=== PATIENT | male | born 1955 | race Caucasian/White ===

== ENCOUNTER → 2020-07-16 13:57 | Outpatient (BNVA) | payer OTHER, SELFPAY | PROVIDERS: PCP Nurse Practitioner Family; Visit Provider Orthopaedic Surgery | DX: Z76.89 Persons encountering health services in other specified circumstances (principal) ==

== ENCOUNTER 2020-07-20 14:57 | Outpatient (REF) | payer OTHER, SELFPAY ==
[2020-07-20 16:37] LABS: MANUAL DIFF FLAG NO
[2020-07-20 16:39] LABS: Basophils Percent Auto 0.6 % (0-2); Eosinophils Absolute Auto 0.1 X10*3/uL (0.0-0.4); Eosinophils Percent Auto 1.5 % (0-4); Hematocrit 43.1 % (42-52); Hemoglobin 14.8 g/dl (14.0-18.0); Imm Gran Abs Auto 0.01 X10*3/uL (0.00-0.03); Imm Gran Pct Auto 0.2 % (0.0-0.4); Lymphocytes Absolute Auto 1.3 X10*3/uL (1.2-4.9); Lymphocytes Percent Auto 20.4 % (20-40); Mean Corpuscular HGB Conc 34.3 g/dl (31.0-36.0); Mean Corpuscular Hemoglobin 29.2 pg (27.0-33.0); Mean Corpuscular Volume 85.2 fL (80-98); Mean Platelet Volume 11.1 fL (9.4-12.4); Monocytes Absolute Auto 0.5 X10*3/uL (0.1-1.2); Monocytes Percent Auto 7.8 % (2-11); Neutrophils Absolute Auto 4.6 X10*3/uL (2.0-8.3); Neutrophils Percent Auto 69.5 % (45-73); Platelet Count 256 X10*3/uL (160-400); Red Blood Count 5.06 X10*6/uL (4.60-5.80); White Blood Count 6.6 X10*3/uL (4.8-10.8)
[2020-07-20 16:46] LABS: Urine Cytology See Pathology rpt
[2020-07-20 17:04] LABS: Anion Gap 13 (12-20); Blood Urea Nitrogen 21 mg/dL (9-16); Calcium 8.8 mg/dL (8.4-10.2); Carbon Dioxide 24 mmol/L (22-29); Chloride 105 mmol/L (96-108); Estimated Glomerular Filt Rate > 60; Glucose Random 84 mg/dL (60-115); Potassium 4.6 mmol/l (3.3-5.1); Sodium 137 mmol/L (135-145)
== END 2020-07-20 14:58 | disposition home or self-care (01) ==
LOC: HO.HMGCLDS 14:57
PROVIDERS: Absent Provider Urology; PCP Nurse Practitioner Family; Visit Provider Physician Assistant
DX: R31.0 Gross hematuria (principal)
CPT/HCPCS: 36415; 80048; 85025; 88112

== ENCOUNTER → 2020-07-24 14:05 | Outpatient (BNVA) | payer OTHER, SELFPAY | PROVIDERS: PCP Nurse Practitioner Family; Visit Provider Urology | DX: N40.1 Benign prostatic hyperplasia with lower urinary tract symptoms (principal); N13.8 Other obstructive and reflux uropathy; R31.0 Gross hematuria; I10 Essential (primary) hypertension; Z79.899 Other long term (current) drug therapy | CPT/HCPCS: 52000 ==

== ENCOUNTER 2020-08-11 | Outpatient (REF) | payer OTHER, SELFPAY ==
[2020-07-28 12:08] VITALS: BMI 26.6
[2020-07-28 12:12] VITALS: BP 148/74; PULSE 88; RESP 20
--- NOTE | 2020-07-28 12:23 | HO.ANESPROP2 ---
HPI - Anesthesia Eval Consult details Narrative: 64YO M for L TKA PCP cleared [facility] Past Medical History Medical History (Updated 07/28/20 @ 12:25 by Liliana Hopson) Bilateral primary osteoarthritis of knee BPH with obstruction/lower urinary tract symptoms Carpal tunnel syndrome Erectile dysfunction GERD (gastroesophageal reflux disease) History of elevated prostate specific antigen (PSA) HTN (hypertension) Lumbar spondylosis Nocturia TANIKA on CPAP Other chronic pain Other intervertebral disc degeneration, lumbar region PMR (polymyalgia rheumatica) Pre-op evaluation S/P ORIF (open reduction internal fixation) fracture Family History Family History Father No problems noted. Mother No problems noted. Brother No problems noted. Brother No problems noted. Brother No problems noted. Son No problems noted. 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 with walking [place]10 miles daily) Meds Allergies Allergy/AdvReac Type Severity Reaction Status Date / Time lisinopril Allergy Unknown cough Verified 07/20/20 14:45 penicillin G [PENICILLIN G] Allergy Unknown swelling Verified 07/20/20 14:45 penicillin V Allergy Unknown hand Verified 07/20/20 14:45 swelling, swelling Home Medications Medication Instructions Recorded Confirmed Type cholecalciferol (vitamin D3) 100 mcg PO DAILY 07/06/20 07/28/20 History losartan 100 mg tablet 100 mg PO DAILY 07/06/20 07/28/20 History naproxen 500 mg tablet 500 mg PO BID 07/06/20 07/28/20 History omeprazole 20 mg capsule,delayed 20 mg PO DAILY 07/06/20 07/28/20 History release tamsulosin 0.4 mg capsule 0.4 mg PO BEDTIME 07/06/20 07/28/20 History Exam Exam Date and Time: July 28, 2020 1223 Height,Weight and Vital Signs: Height 5 ft 8 in Weight 79.379 kg Last Vital Signs Pulse 88 07/28/20 12:12 Resp 20 07/28/20 12:12 BP 148/74 H 07/28/20 12:12 Pertinent Lab Results Pertinent Lab Results: Laboratory Tests 06/06/20 07/20/20 07/20/20 10:02 15:10 15:10 WBC 6.6 RBC 5.06 Hgb 14.8 Hct 43.1 Plt Count 256 Sodium 137 Potassium 4.6 Chloride 105 Carbon Dioxide 24 BUN 21 H Creatinine 1.06 Estimated GFR > 60 Coronavirus (PCR) Not Detected Narrative Narrative: EKG NSR@64 Airway Mallampati Class: I TM Dist: >3cm (NSR) Neck ROM: Full Loose/Missing/Broken Teeth: Yes (Right lower molar broken (crown broke off)) Heart: RRR Lungs: CTAB
[2020-07-28 15:05] LABS: MRSA Nasal PCR NEGATIVE (Negative); SA Nasal PCR NEGATIVE (Negative)
== END 2020-08-11 00:01 ==
LOC: HO.LAB
PROVIDERS: PCP Nurse Practitioner Family; Visit Provider Orthopaedic Surgery
DX: M17.12 Unilateral primary osteoarthritis, left knee (principal)
CPT/HCPCS: 87640; 87641

== ENCOUNTER 2020-10-29 09:46 | Outpatient (REF) | payer OTHER, SELFPAY ==
--- NOTE | 2020-10-29 13:41 | XR_ITS ---
EXAMINATION: KNEE X-RAY CLINICAL INFORMATION: Primary arthritis of the knee COMPARISON: Previous exams most recent January 2019 TECHNIQUE: Standing AP view of both knees and 2 views of the left knee FINDINGS: Left knee: There is slight varus angulation at the knee joint. Bone alignment is otherwise normal. No fracture or dislocation is seen. There is severe arthritis at the medial femoral tibial and moderate arthritis at the patellofemoral joints with joint space narrowing and osteophyte formation. There is no significant joint effusion. Standing AP view of the right knee demonstrates an intramedullary flower and posttraumatic change to the distal femoral shaft. There is varus angulation at the knee joint and severe arthritis at the medial femoral tibial joint. XR/XR knee LT 2V IMPRESSION: Left knee: Varus angulation and arthritis. Right knee: Varus angulation and arthritis. ORIF of right femoral shaft fracture.
--- NOTE | 2020-10-29 13:41 | XR_ITS ---
EXAMINATION: KNEE X-RAY CLINICAL INFORMATION: Primary arthritis of the knee COMPARISON: Previous exams most recent January 2019 TECHNIQUE: Standing AP view of both knees and 2 views of the left knee FINDINGS: Left knee: There is slight varus angulation at the knee joint. Bone alignment is otherwise normal. No fracture or dislocation is seen. There is severe arthritis at the medial femoral tibial and moderate arthritis at the patellofemoral joints with joint space narrowing and osteophyte formation. There is no significant joint effusion. Standing AP view of the right knee demonstrates an intramedullary flower and posttraumatic change to the distal femoral shaft. There is varus angulation at the knee joint and severe arthritis at the medial femoral tibial joint. XR/XR knee standing BI IMPRESSION: Left knee: Varus angulation and arthritis. Right knee: Varus angulation and arthritis. ORIF of right femoral shaft fracture.
== END 2020-10-29 09:47 | disposition home or self-care (01) ==
LOC: HO.HOSX 09:46
PROVIDERS: Visit Provider Physician Assistant
DX: Z01.818 Encounter for other preprocedural examination (principal); M17.12 Unilateral primary osteoarthritis, left knee
CPT/HCPCS: 73560; 73565

== ENCOUNTER 2020-11-03 05:59 | Inpatient (IN) | payer OTHER, SELFPAY ==
[2020-10-27 16:37] LABS: MANUAL DIFF FLAG NO
[2020-10-27 16:41] LABS: Basophils Percent Auto 0.5 % (0-2); Eosinophils Absolute Auto 0.1 X10*3/uL (0.0-0.4); Hematocrit 45.5 % (42-52); Hemoglobin 15.2 g/dl (14.0-18.0); Imm Gran Abs Auto 0.01 X10*3/uL (0.00-0.03); Imm Gran Pct Auto 0.2 % (0.0-0.4); Lymphocytes Absolute Auto 1.2 X10*3/uL (1.2-4.9); Lymphocytes Percent Auto 19.9 % (20-40); Mean Corpuscular HGB Conc 33.4 g/dl (31.0-36.0); Mean Corpuscular Hemoglobin 28.4 pg (27.0-33.0); Mean Platelet Volume 11.3 fL (9.4-12.4); Monocytes Absolute Auto 0.5 X10*3/uL (0.1-1.2); Neutrophils Absolute Auto 4.4 X10*3/uL (2.0-8.3); Neutrophils Percent Auto 70.4 % (45-73); Platelet Count 229 X10*3/uL (160-400); Red Blood Count 5.35 X10*6/uL (4.60-5.80); Red Cell Distribution Width 12.8 % (11.0-16.0); White Blood Count 6.2 X10*3/uL (4.8-10.8)
[2020-10-27 16:47] LABS: INTERNATIONAL NORM RATIO 1.1 (0.9-1.1); Prothrombin Time 12.5 SEC (10.8-13.0)
[2020-10-27 16:50] LABS: Partial Thromboplastin Time 34.5 SEC (24.1-38.0)
[2020-10-27 17:16] LABS: Alanine Aminotransferase 14 U/L (0-40); Albumin Level 4.2 g/dL (3.5-5.0); Alkaline Phosphatase 86 U/L (39-117); Anion Gap 13 (12-20); Aspartate Amino Transferase 16 U/L (5-37); Bilirubin Total 0.6 mg/dL (0.0-1.0); Blood Urea Nitrogen 20 mg/dL (9-16); Calcium 8.8 mg/dL (8.4-10.2); Carbon Dioxide 24 mmol/L (22-29); Chloride 104 mmol/L (96-108); Estimated Glomerular Filt Rate > 60; Glucose Random 78 mg/dL (60-115); Potassium 4.4 mmol/l (3.3-5.1); Sodium 137 mmol/L (135-145); Total Protein 7.4 g/dL (6.5-8.0)
[2020-10-27 17:44] LABS: PSA,Total (Free>4and<10) 8.27 ng/mL (0.00-4.00)
[2020-10-28 10:16] LABS: Free Prostate Spec Ag 1.8 ng/mL; Percent Free Prostate Spec Ag 21 % (calc) (>25); Prostate Specific Ag Total 8.6 ng/mL (< OR = 4.0)
--- NOTE | 2020-11-02 08:41 | HO.ANESPROP2 ---
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 Mother No problems noted. Brother No problems noted. Brother No problems noted. Brother No problems noted. Son No problems noted. Surgical History Surgical History H/O prior ablation treatment History of arthroscopy of both knees History of ear surgery History of prostate biopsy Hx of colonoscopy Hx of esophagogastroduodenoscopy Social History Social History Smoking Status: Never smoker Second Hand Smoke Exposure: No Use of substances other than those prescribed or required for medical reasons: No Have you been hit, kicked, punched, or otherwise hurt by someone within the past year? If so, by whom?: No Advance Directives: No Recently lost weight without trying: No Meds Allergies Allergy/AdvReac Type Severity Reaction Status Date / Time lisinopril Allergy Unknown cough Verified 10/29/20 08:54 penicillin G [PENICILLIN G] Allergy Unknown swelling Verified 10/29/20 08:54 penicillin V Allergy Unknown hand Verified 10/29/20 08:54 swelling, swelling Home Medications Medication Instructions Recorded Confirmed Type cholecalciferol (vitamin D3) 100 mcg PO DAILY 07/06/20 10/26/20 History naproxen 500 mg tablet 500 mg PO BID 07/06/20 10/26/20 History omeprazole 20 mg capsule,delayed 20 mg PO DAILY 07/06/20 10/26/20 History release Exam Exam Date and Time: Seen in [facility] 07/2020 Pertinent Lab Results Pertinent Lab Results: Laboratory Tests 10/27/20 10/27/20 10/27/20 15:17 15:17 15:17 WBC 6.2 RBC 5.35 Hgb 15.2 Hct 45.5 MCV 85.0 MCH 28.4 MCHC 33.4 RDW 12.8 Plt Count 229 MPV 11.3 Immature Gran % (Auto) 0.2 Neut % (Auto) 70.4 Lymph % (Auto) 19.9 L Coles % (Auto) 8.0 Eos % (Auto) 1.0 Baso % (Auto) 0.5 Lymph # (Auto) 1.2 Coles # (Auto) 0.5 Eos # (Auto) 0.1 Baso # (Auto) 0.0 Abs Immat Gran (auto) 0.01 Absolute Neuts (auto) 4.4 Absolute Nucleated RBC 0.000 Nucleated RBC % (auto) 0.0 PT 12.5 INR 1.1 APTT 34.5 Sodium 137 Potassium 4.4 Chloride 104 Carbon Dioxide 24 Anion Gap 13 BUN 20 H Creatinine 1.01 Estim Creat Clear Calc TNP Estimated GFR > 60 Random Glucose 78 Calcium 8.8 Total Bilirubin 0.6 AST 16 ALT 14 Alkaline Phosphatase 86 Total Protein 7.4 Albumin 4.2 Free PSA % Free PSA Total PSA 8.27 H Total PSA (off-site) 10/27/20 17:44 WBC RBC Hgb Hct MCV MCH MCHC RDW Plt Count MPV Immature Gran % (Auto) Neut % (Auto) Lymph % (Auto) Coles % (Auto) Eos % (Auto) Baso % (Auto) Lymph # (Auto) Coles # (Auto) Eos # (Auto) Baso # (Auto) Abs Immat Gran (auto) Absolute Neuts (auto) Absolute Nucleated RBC Nucleated RBC % (auto) PT INR APTT Sodium Potassium Chloride Carbon Dioxide Anion Gap BUN Creatinine Estim Creat Clear Calc Estimated GFR Random Glucose Calcium Total Bilirubin AST ALT Alkaline Phosphatase Total Protein Albumin Free PSA 1.8 % Free PSA 21 L Total PSA Total PSA (off-site) 8.6 H Narrative Narrative: EKG 10/2020 NSR@65 Assessment and Plan Assessment Anesthesia Assessment: Chart Reviewed (Pt seen in PAT 07/2020. ? 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 Mother No problems noted. Brother No problems noted. Brother No problems noted. Brother No problems noted. Son No problems noted. Surgical History Surgical History H/O prior ablation treatment History of arthroscopy of both knees History of ear surgery History of prostate biopsy Hx of colonoscopy Hx of esophagogastroduodenoscopy Social History Social History Smoking Status: Never smoker Second Hand Smoke Exposure: No Use of substances other than those prescribed or required for medical reasons: No Have you been hit, kicked, punched, or otherwise hurt by someone within the past year? If so, by whom?: No Advance Directives: No Recently lost weight without trying: No Meds Allergies Allergy/AdvReac Type Severity Reaction Status Date / Time lisinopril Allergy Unknown cough Verified 10/29/20 08:54 penicillin G [PENICILLIN G] Allergy Unknown swelling Verified 10/29/20 08:54 penicillin V Allergy Unknown hand Verified 10/29/20 08:54 swelling, swelling Home Medications Medication Instructions Recorded Confirmed Type cholecalciferol (vitamin D3) 100 mcg PO DAILY 07/06/20 10/26/20 History naproxen 500 mg tablet 500 mg PO BID 07/06/20 10/26/20 History omeprazole 20 mg capsule,delayed 20 mg PO DAILY 07/06/20 10/26/20 History release Exam Airway Mallampati Class: II TM Dist: >3cm Neck ROM: Full Loose/Missing/Broken Teeth: Yes (Several crowns) Heart: RRR Lungs: Nonlabored Other: Rash on left hand Assessment and Plan Assessment Anesthesia Assessment: Anesthesia Plan Discussed, PAT Visit and Chart Reviewed Final Anesthetic Review NPO: Yes ASA Class: III Final Preanesthetic Review: No Changes in Pt Med Stat, Meds/Allgs Chart Reviewed, Consent Obtained/Reviewed and Anes Risks/Benef Reviewed Patient Risk: Intermediate Procedure Risk: Intermediate Anesthetic Plan Anesthetic Plan: MAC:, Spinal and Regional Block Disposition: Standard PACU
[2020-11-02 15:58] VITALS: BMI 28.1
[2020-11-03] VITALS (14 sets, daily range): BP systolic 105–145; BP diastolic 62–85; PULSE 56–99; RESP 16–20; TEMP 36.2–36.9; O2SAT 95–99
--- NOTE | 2020-11-03 | XR_ITS ---
EXAMINATION: XR KNEE, LEFT CLINICAL INFORMATION: Knee replacement COMPARISON: None TECHNIQUE: Two views of the left knee. FINDINGS: There is a new 3 component knee replacement in satisfactory position. No fracture or dislocation is seen. There are postoperative changes of the soft tissues. XR/XR knee LT 2V IMPRESSION: Satisfactory appearance of left knee replacement.
[2020-11-03] MEDS: Lactated Ringers 1,000 ML 100 ML IVCONT (06:47)
[2020-11-03] MEDS: Gabapentin 600 MG TABLET PO (06:48)
[2020-11-03 06:49] LABS: COVID-19 Test Negative (Negative)
--- NOTE | 2020-11-03 07:38 | MHC.SHP ---
Pre-Procedural Eval Section A The patient is an INPATIENT: No Changes since office visit: Yes Patient answered all questions; No Cold of Flu in the past 2 weeks, No New Medical Problems and No Changes in Medication The History & Physical has been completed within 30 days and I have reviewed it.: Yes Section B Chief Complaint: s/p total left knee Allergies: Allergies Allergy/AdvReac Type Severity Reaction Status Date / Time lisinopril Allergy Unknown cough Verified 10/29/20 08:54 penicillin G [PENICILLIN G] Allergy Unknown swelling Verified 10/29/20 08:54 penicillin V Allergy Unknown hand Verified 10/29/20 08:54 swelling, swelling Plan I have reviewed the history and physical and performed a pertinent physical examination on my patient. No changes have occurred unless specified.
--- NOTE | 2020-11-03 09:31 | P.BOP_ITS ---
Brief Operative Note Date of Service: 11/03/20 Pre-op diagnosis: left knee OA Post-op diagnosis: same Procedure: Left TKA Implants: swapna triathalon press fit 03/13/11/a Surgeon: Torsten Ryan MD Anesthesia: regional and spinal Color Control Supervisor: Dell Steele Estimated blood loss (mL): 150 Tourniquet time (min): 0 IV fluids (mL): 1,100 Urine output (mL): 0 Pathology: other Condition: stable Disposition: PACU
--- NOTE | 2020-11-03 10:08 | OP_ITS ---
SURGEON: Torsten Ryan MD INDICATIONS: This is a 64-year-old gentleman with left knee osteoarthritis, consented to undergo operative intervention. He had failed conservative measures and elected to proceed forward after a full explanation of risks, benefits, and alternatives were discussed with the patient. PREOPERATIVE DIAGNOSIS: Left knee osteoarthritis. POSTOPERATIVE DIAGNOSIS: Left knee osteoarthritis. PROCEDURE PERFORMED: Left total knee arthroplasty. ESTIMATED BLOOD LOSS: 150 mL. COMPLICATIONS: None known. ANESTHESIA: ASSISTANTS: 1. GEORGE Longoria. 2. Rafa Felder. SPECIMENS: IMPLANTS USED: Nela Triathlon press-fit 03/13/11CR/35A. FLUIDS: 1100. PROCEDURE IN DETAIL: The patient was brought to the operating room, placed supine on the operative table and prepped and draped in standard sterile fashion. Time-out was called to identify proper site, proper procedure, proper surgeon. IV antibiotics per weight was administered. I began by making a midline incision over the knee. Dissection was taken down to the retinaculum and a medial parapatellar arthrotomy was performed. The knee was flexed and a small medial peel with resection of the infrapatellar fat pad was performed. Hand's line was used to drill my intramedullary femoral guide and my distal femoral cut was made in 5 degrees of valgus. I then sized a size 6 femur and made my anterior, posterior, and chamfer cuts, protecting the soft tissues at all times. I then turned my attention to the tibia, where removed both the meniscus and loose soft tissue. I took 2 mm off the medial side in line with the tibial crest, preserving the PCL, protecting the posterior soft tissues at all times. Once this was done, I placed an extension block and was happy with the extension. I then trialed a size 6 and a 5 tibia. I was happiest with a 5. This was provisionally placed and the knee was taken through range of motion. I was happy with the flexion, extension, and varus and valgus stability as well as a varus and valgus balance. I then turned to the patella, where I removed 1 cm of the undersurface of the patella and trialed a size 35A patella. I was happy with the tracking at this point. I then drilled my femoral lug holes and prepared my tibial canal, and all instrumentation was removed. All components were used for hemostasis and I press-fit in my tibia and femur in standard fashion. I then trialed a 9, 10 and 11 insert and I was happiest with the 11. This was placed. I then press-fit the patella and took the knee through range of motion. Once again, I was happy with the tracking, stability and range. I then placed 1 g of tranexamic acid locally and 3-minute iodine soak. Layered closure was then performed with debbi on the skin. The patient was placed in sterile dressing, extubated, awakened from sedation, and brought to recovery room in stable condition. There were no known complications. MD ROSAURA Aguilar/MANDEEP / [id number]
--- NOTE | 2020-11-03 11:06 | P.CONIM_ITS ---
History of Present Illness Data of Consult Service Date: 11/03/20 Requesting physician: Torsten Ryan Primary Care Provider: Jagdeep Aguillon [facility] HPI Reason for consult: Medical Management 64 year old man admitted by orthopedic surgery and is status post Left total knee arthroplasty. Surgery was unremarkable. Patient has been able to eat and drink without any nausea or vomiting. Patient's vital signs are stable. There is no acute medical complaints this time. 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 Mother No problems noted. Brother No problems noted. Brother No problems noted. Brother No problems noted. Son No problems noted. Surgical History H/O prior ablation treatment History of arthroscopy of both knees History of ear surgery History of prostate biopsy Hx of colonoscopy Hx of esophagogastroduodenoscopy Social History Smoking Status: Never smoker Second Hand Smoke Exposure: No Use of substances other than those prescribed or required for medical reasons: No Currently Displaying Signs/Symptoms of Drug Intoxication Withdrawal: No Have you been hit, kicked, punched, or otherwise hurt by someone within the past year? If so, by whom?: No Advance Directives: No Do you have thoughts of harming others: None Do you have a plan to hurt others: No Plan Recently lost weight without trying: No Meds Allergies Allergy/AdvReac Type Severity Reaction Status Date / Time lisinopril Allergy Unknown cough Verified 10/29/20 08:54 penicillin G [PENICILLIN G] Allergy Unknown swelling Verified 10/29/20 08:54 penicillin V Allergy Unknown hand Verified 10/29/20 08:54 swelling, swelling Home Medications Medication Instructions Recorded Confirmed Type cholecalciferol (vitamin D3) 100 mcg PO DAILY 07/06/20 11/03/20 History naproxen 500 mg tablet 500 mg PO BID 07/06/20 11/03/20 History omeprazole 20 mg capsule,delayed 20 mg PO DAILY 07/06/20 11/03/20 History release Physical Exam Vital Signs and Narrative: Vital Signs: Last Vital Signs Temp 97.1 F 11/03/20 10:28 Pulse 56 11/03/20 10:58 Resp 16 11/03/20 10:58 BP 111/70 11/03/20 10:58 Pulse Ox 99 11/03/20 10:58 Body Mass Index 28.1 Appearing in no acute distress head is normocephalic atraumatic eyes pupils are PERRLA sclera is anicteric mouth throat mucous membranes are intact and moist neck is supple no lymphadenopathy, no JVD noted lung sounds are clear to auscultation heart regular rate rhythm, clear S1, S2 positive bowel sounds, abdomen is soft, nontender neuro patient is alert x3, no focal deficits Results Labs CBC and Chem 7: 10/27/20 15:17 10/27/20 15:17 Labs: Laboratory Results - last 24 hr 11/03/20 11/03/20 06:10 06:26 COVID-19 ([facility]) Negative COVID-19 Clin Com See Note Blood Type A Positive Antibody Screen NEGATIVE Imaging Radiologist's Impressions: Impressions Knee X-Ray 11/03/20 00:00 IMPRESSION: Satisfactory appearance of left knee replacement. Assessment and Plan (1) Osteoarthritis of left knee: Status: Acute 64-year-old man status post left total knee arthroplasty. Left knee arthroplasty. Management as per surgical team, pain management. Hypertension. Stable blood pressure. Continue losartan. BPH. Continue finasteride. GERD. Continue PPI. DVT prophylaxis with full-dose aspirin. Case discussed with Dr. Marrufo Full code
[2020-11-03] MEDS: oxyCODONE HCl Immed Release 5 MG TABLET PO ×3 (11:56→21:33)
[2020-11-03] MEDS: Dextrose 5 % and 0.45 % NaCl 1,000 ML 80 ML IVCONT (13:56)
[2020-11-03] MEDS: HYDROmorphone HCl 0.5 MG/0.5 ML SYRINGE 0.25 MG IVPUSH ×2 (14:07→18:06)
[2020-11-03] MEDS: ondansetron HCL 4 MG/2 ML VIAL IVPUSH (16:29)
[2020-11-03] MEDS: Acetaminophen 325 MG TABLET 650 MG PO (16:30)
[2020-11-03] MEDS: Finasteride 5 MG TABLET PO (16:31)
[2020-11-03] MEDS: Omeprazole 20 MG CAPSULE.DR PO (16:31)
[2020-11-03] MEDS: Ketorolac Tromethamine 15 MG/ML VIAL IVPUSH (19:57)
[2020-11-03] MEDS: Celecoxib 200 MG CAPSULE PO (21:33)
[2020-11-03] MEDS: oxyCODONE HCl ER 10 MG TAB.ER.12H PO (21:33)
[2020-11-04] VITALS (9 sets, daily range): BP systolic 114–174; BP diastolic 74–87; PULSE 81–98; RESP 17–20; TEMP 36.5–37.3; O2SAT 94–99
[2020-11-04] MEDS: Dextrose 5 % and 0.45 % NaCl 1,000 ML 80 ML IVCONT (02:25)
[2020-11-04] MEDS: HYDROmorphone HCl 0.5 MG/0.5 ML SYRINGE 0.25 MG IVPUSH ×4 (02:34→18:21)
[2020-11-04] MEDS: Aspirin 325 MG TABLET PO ×3 (06:11→20:37)
[2020-11-04] MEDS: Omeprazole 20 MG CAPSULE.DR PO (06:12)
[2020-11-04 06:26] LABS: MANUAL DIFF FLAG NO
[2020-11-04 06:47] LABS: Basophils Percent Auto 0.3 % (0-2); Eosinophils Absolute Auto 0.1 X10*3/uL (0.0-0.4); Eosinophils Percent Auto 1.1 % (0-4); Hematocrit 36.2 % (42-52); Hemoglobin 12.1 g/dl (14.0-18.0); Imm Gran Abs Auto 0.05 X10*3/uL (0.00-0.03); Imm Gran Pct Auto 0.6 % (0.0-0.4); Lymphocytes Absolute Auto 0.9 X10*3/uL (1.2-4.9); Lymphocytes Percent Auto 11.8 % (20-40); Mean Corpuscular HGB Conc 33.4 g/dl (31.0-36.0); Mean Corpuscular Hemoglobin 28.6 pg (27.0-33.0); Mean Corpuscular Volume 85.6 fL (80-98); Mean Platelet Volume 11.1 fL (9.4-12.4); Monocytes Absolute Auto 1.2 X10*3/uL (0.1-1.2); Monocytes Percent Auto 14.7 % (2-11); Neutrophils Absolute Auto 5.6 X10*3/uL (2.0-8.3); Neutrophils Percent Auto 71.5 % (45-73); Platelet Count 181 X10*3/uL (160-400); Red Blood Count 4.23 X10*6/uL (4.60-5.80); Red Cell Distribution Width 13.1 % (11.0-16.0); White Blood Count 7.9 X10*3/uL (4.8-10.8)
[2020-11-04 07:11] LABS: Anion Gap 10 (12-20); Blood Urea Nitrogen 11 mg/dL (9-16); Carbon Dioxide 24 mmol/L (22-29); Chloride 104 mmol/L (96-108); Creatinine Clr Calc Pharmacy 92.6; Estimated Glomerular Filt Rate > 60; Glucose Fasting 114 mg/dL (60-99); Potassium 4.3 mmol/l (3.3-5.1); Sodium 134 mmol/L (135-145)
[2020-11-04] MEDS: oxyCODONE HCl Immed Release 5 MG TABLET PO (07:24)
[2020-11-04 07:38] LABS: Calcium 7.6 mg/dL (8.4-10.2)
[2020-11-04] MEDS: Celecoxib 200 MG CAPSULE PO ×2 (09:03→20:37)
[2020-11-04] MEDS: Finasteride 5 MG TABLET PO (09:03)
[2020-11-04] MEDS: oxyCODONE HCl ER 10 MG TAB.ER.12H PO ×2 (09:04→20:37)
--- NOTE | 2020-11-04 09:10 | HO.POSTANES ---
Post Anesthesia Evaluation Post Anesthesia Evaluation Vital Signs: Vital Signs Temp Pulse Resp BP Pulse Ox 11/04/20 08:32 88 149/79 H 95 11/04/20 08:00 99.1 F 88 20 149/79 H 95 11/04/20 03:20 98.6 F 92 18 114/74 94 11/03/20 23:39 98.5 F 89 18 135/72 95 Anesthesia: Spinal and Nerve Block Mental Status: Awake Pain Control: Satisfactory Nausea/Vomiting: None Hydration: Adequate Anesthesia-Related Issues: No Anes. Related Issues
--- NOTE | 2020-11-04 10:02 | PM.PNORT ---
Subjective Subjective Date of Service: 11/04/20 Principal diagnosis: s/p lt tka Interval history: POD 1 s/p LT TKA No overnight events, resting in chair, has been out of bed using commode. Pain is tolerable. Denies cp, sob, dizziness. Physical Exam Vital Signs: Vital Signs: Last Vital Signs Temp 99.1 F 11/04/20 08:00 Pulse 88 11/04/20 08:32 Resp 20 11/04/20 08:00 BP 149/79 H 11/04/20 08:32 Pulse Ox 95 11/04/20 08:32 Body Mass Index 28.1 Const: General: cooperative, healthy appearing and no acute distress Resp: Effort & Inspection: normal respiratory effort and able to speak in complete sentences Cardio: Rate: regular rate Peripheral pulses: Peripheral pulses 2+ throughout GI: Palpation (GI): Soft to palpation Skin: General skin exam: no rashes or lesions noted Extrem: Other: Left knee bandage intact, no erythema mild edema, sensation and pulses present Progress Note: A&P Assessment and plan (1) Status post total left knee replacement: Status: Acute Assessment and Plan: Continue pain mgmnt Begin asa for dvt ppx begin PT for LT TKA Dispo planning-Pending PT eval, pain mgmnt Fall Risk Details Current Medications: Current Medications Generic Name Dose Route Start Last Admin Trade Name Freq PRN Reason Stop Dose Admin Acetaminophen 650 mg 11/03/20 09:51 11/03/20 16:30 Acetaminophen 325 Mg Tablet PO 650 mg Q6H PRN Administration Pain, Mild (Pain Scale 1-3) Aspirin 325 mg 11/04/20 07:00 11/04/20 09:03 Aspirin 325 Mg Tablet PO 325 mg BID ALICE Administration Celecoxib 200 mg 11/03/20 21:00 11/04/20 09:03 Celecoxib 200 Mg Capsule PO 200 mg BID ALICE Administration Finasteride 5 mg 11/03/20 16:30 11/04/20 09:03 Finasteride 5 Mg Tablet PO 5 mg DAILY ALICE Administration Hydromorphone HCl 0.25 mg 11/03/20 09:56 11/04/20 09:03 Hydromorphone Hcl 0.5 Mg/0.5 Ml Syringe IVPUSH 0.25 mg Q4H PRN Administration Pain, Severe (Pain Scale 7-10) Naloxone HCl 0.2 mg 11/03/20 09:56 Naloxone Hcl 0.4 Mg/Ml Vial IVPUSH Q2M PRN Excessive sedation or RR < 8 Omeprazole 20 mg 11/03/20 16:30 11/04/20 06:12 Omeprazole 20 Mg Capsule.Dr PO 20 mg DAILY@0630 ALICE Administration Ondansetron HCl 4 mg 11/03/20 09:51 11/03/20 16:29 Ondansetron Hcl 4 Mg/2 Ml Vial IVPUSH 4 mg Q8H PRN Administration Nausea and Vomiting Oxycodone HCl 5 mg 11/03/20 09:56 11/04/20 07:24 Oxycodone Hcl Immed Release 5 Mg Tablet PO 5 mg Q4H PRN Administration Pain, Moderate (Pain Scale 4-6 Oxycodone HCl 10 mg 11/03/20 21:00 11/04/20 09:04 Oxycodone Hcl Er 10 Mg Tab.Er.12h PO 10 mg BID ALICE Administration Pharmacy Consult 1 each 11/03/20 11:05 Consult Rx Perform Med Rec MISCELLANE ONCE PRN Consult order Senna 17.2 mg 11/03/20 09:51 Sennosides 8.6 Mg Tablet PO BEDTIME PRN Constipation Time Spent With Patient Time: Total time spent is greater than 50% in coordination of care (as documented) at patient's floor/unit and/or counseling patient: Time with patient: less than 15 minutes
--- NOTE | 2020-11-04 11:42 | MHC.CM.PN ---
met with pt who lives with his who is an rn.. pt does not anticapte needing services when dcd
[2020-11-04] MEDS: oxyCODONE HCl Immed Release 5 MG TABLET 10 MG PO ×2 (13:09→19:45)
--- NOTE | 2020-11-04 17:55 | HO.PM.IMPN ---
Subjective Subjective Date of Service: 11/04/20 Interval History: htn , bph Review of Systems denies any chest apin or sob or abd pain or any fever or chills or nausea or vomiting. Physical Exam Vital Signs: Vital Signs: Last Vital Signs Temp 97.7 F 11/04/20 15:43 Pulse 93 11/04/20 15:43 Resp 17 11/04/20 15:43 BP 156/80 H 11/04/20 15:43 Pulse Ox 99 11/04/20 15:43 Body Mass Index 28.1 Physical exam: Cvs: rrr, [id number] , no murmur res: clear to auscultation ,no rhonchii or wheezing abd: no rebound or guarding ,nt, bs present. ext pulses present , no cyanosis neuro: axo3 , nonfocal. Objective Data Current Medications Generic Name Dose Route Start Last Admin Trade Name Freq PRN Reason Stop Dose Admin Acetaminophen 650 mg 11/03/20 09:51 11/03/20 16:30 Acetaminophen 325 Mg Tablet PO 650 mg Q6H PRN Administration Pain, Mild (Pain Scale 1-3) Aspirin 325 mg 11/04/20 07:00 11/04/20 09:03 Aspirin 325 Mg Tablet PO 325 mg BID ALICE Administration Celecoxib 200 mg 11/03/20 21:00 11/04/20 09:03 Celecoxib 200 Mg Capsule PO 200 mg BID ALICE Administration Finasteride 5 mg 11/03/20 16:30 11/04/20 09:03 Finasteride 5 Mg Tablet PO 5 mg DAILY ALICE Administration Hydromorphone HCl 0.25 mg 11/03/20 09:56 11/04/20 14:17 Hydromorphone Hcl 0.5 Mg/0.5 Ml Syringe IVPUSH 0.25 mg Q4H PRN Administration Pain, Severe (Pain Scale 7-10) Naloxone HCl 0.2 mg 11/03/20 09:56 Naloxone Hcl 0.4 Mg/Ml Vial IVPUSH Q2M PRN Excessive sedation or RR < 8 Omeprazole 20 mg 11/03/20 16:30 11/04/20 06:12 Omeprazole 20 Mg Capsule. PO 20 mg DAILY@0630 ALICE Administration Ondansetron HCl 4 mg 11/03/20 09:51 11/03/20 16:29 Ondansetron Hcl 4 Mg/2 Ml Vial IVPUSH 4 mg Q8H PRN Administration Nausea and Vomiting Oxycodone HCl 10 mg 11/03/20 21:00 11/04/20 09:04 Oxycodone Hcl Er 10 Mg Tab.Er.12h PO 10 mg BID ALICE Administration Oxycodone HCl 10 mg 11/04/20 10:09 11/04/20 13:09 Oxycodone Hcl Immed Release 5 Mg Tablet PO 10 mg Q6H PRN Administration Pain, Moderate (Pain Scale 4-6 Pharmacy Consult 1 each 11/03/20 11:05 Consult Rx Perform Med Rec MISCELLANE ONCE PRN Consult order Senna 17.2 mg 11/03/20 09:51 Sennosides 8.6 Mg Tablet PO BEDTIME PRN Constipation Labs CBC & Chem 7: 11/04/20 06:07 11/04/20 06:07 Assessment and Plan (1) Bilateral primary osteoarthritis of knee: Status: Acute Assessment and Plan: 64-year-old man status post left total knee arthroplasty. 1.Left knee arthroplasty. Management as per surgical team, pain management. postop anemia 2.Hypertension. Stable blood pressure-slightly suboptimal due to pain. Continue losartan. 3.BPH. Continue finasteride. 4.GERD. Continue PPI. 5.DVT prophylaxis with full-dose aspirin. will sign off now, please call us for any questions
[2020-11-05 03:37] VITALS: BP 137/71; PULSE 82; RESP 18; TEMP 36.8; O2SAT 95
[2020-11-05] MEDS: Omeprazole 20 MG CAPSULE.DR PO (06:04)
[2020-11-05 06:27] LABS: MANUAL DIFF FLAG NO
[2020-11-05 06:46] LABS: Basophils Percent Auto 0.3 % (0-2); Eosinophils Absolute Auto 0.2 X10*3/uL (0.0-0.4); Eosinophils Percent Auto 1.9 % (0-4); Hemoglobin 11.6 g/dl (14.0-18.0); Imm Gran Abs Auto 0.03 X10*3/uL (0.00-0.03); Imm Gran Pct Auto 0.4 % (0.0-0.4); Lymphocytes Percent Auto 13.3 % (20-40); Mean Corpuscular HGB Conc 33.1 g/dl (31.0-36.0); Mean Corpuscular Hemoglobin 28.4 pg (27.0-33.0); Mean Corpuscular Volume 85.6 fL (80-98); Monocytes Absolute Auto 1.1 X10*3/uL (0.1-1.2); Monocytes Percent Auto 14.1 % (2-11); Neutrophils Absolute Auto 5.4 X10*3/uL (2.0-8.3); Platelet Count 190 X10*3/uL (160-400); Red Blood Count 4.09 X10*6/uL (4.60-5.80); Red Cell Distribution Width 13.1 % (11.0-16.0); White Blood Count 7.7 X10*3/uL (4.8-10.8)
[2020-11-05 07:02] LABS: Anion Gap 12 (12-20); Blood Urea Nitrogen 11 mg/dL (9-16); Calcium 7.7 mg/dL (8.4-10.2); Carbon Dioxide 24 mmol/L (22-29); Chloride 105 mmol/L (96-108); Creatinine Clr Calc Pharmacy 89.4; Estimated Glomerular Filt Rate > 60; Glucose Fasting 115 mg/dL (60-99); Potassium 4.9 mmol/l (3.3-5.1); Sodium 136 mmol/L (135-145)
[2020-11-05 08:00] VITALS: BP 129/67; PULSE 93; RESP 18; TEMP 36.7; O2SAT 95
[2020-11-05 08:11] VITALS: BP 137/71; PULSE 82; O2SAT 95
[2020-11-05] MEDS: Celecoxib 200 MG CAPSULE PO (08:39)
[2020-11-05] MEDS: oxyCODONE HCl Immed Release 5 MG TABLET 10 MG PO (08:39)
[2020-11-05] MEDS: Aspirin 325 MG TABLET PO (08:39)
[2020-11-05] MEDS: oxyCODONE HCl ER 10 MG TAB.ER.12H PO (08:39)
[2020-11-05] MEDS: Finasteride 5 MG TABLET PO (08:40)
--- NOTE | 2020-11-05 09:13 | P.DS_ITS ---
DS: Providers Provider Date of Service: 11/05/20 Date of admission: 11/03/20 05:59 Primary care physician: JACOB Dumont Consults: 11/03/20 09:56 Consult to Hospitalist Routine Consulting Provider: Hospitalist Reason for consultation: Medical Management DS: Diagnosis Discharge Diagnosis (1) Bilateral primary osteoarthritis of knee: Status: Acute Problem details: Mr. Ribera is a 64 yo male who presented to the office with ongoing left knee pain. He was found to have OA of the left knee and had failed all conservative treatment. He continued to have difficulty with ambulation and daily activities; therefore he consented to move forward with Left total knee arthroplasty. DS: Medications Discharge Medications Home Medications: Home Medications Medication Instructions Recorded Confirmed cholecalciferol (vitamin D3) 100 mcg PO DAILY 07/06/20 11/03/20 omeprazole 20 mg capsule,delayed 20 mg PO DAILY 07/06/20 11/03/20 release Previous Rx's Medication Instructions Recorded finasteride 5 mg tablet 5 mg PO DAILY 90 Days #90 tab 07/24/20 losartan 100 mg tablet 100 mg PO DAILY 90 Days #90 tab 09/24/20 walker #1 ea 10/29/20 acetaminophen 650 mg PO Q6H PRN 30 Days #240 tab 11/05/20 aspirin 325 mg PO BID 14 Days #28 tab 11/05/20 oxycodone 10 mg PO Q6H PRN 7 Days #28 tab 11/05/20 sennosides [Senna Lax] 17.2 mg PO BEDTIME PRN 30 Days #30 11/05/20 tab DS: Summary Hospital Course Hospital Course: The patient underwent a successful left total knee arthroplasty, they were transferred to PACU and then to the floor to recover. During their stay, their vitals were stable, afebrile at 98.1. Labs were unremarkable, H/H 11.6 and 35.0. POD 1 they were started on Aspirin 325mg po bid for DVT ppx, they also received Physical Therapy services twice a day. Prior to discharge, their dressing was changed, incision clean dry and intact, new Aquacel dressing applied and the plan was to be discharged home with VNA services. Time Spent with Patient Time attestation: Total time spent providing and/or coordinating discharge services: Discharge coordination time: Less than 30 minutes (30 mins) Physical Exam Vital Signs: Vital Signs: Last Vital Signs Temp 98.1 F 11/05/20 08:00 Pulse 82 11/05/20 08:11 Resp 18 11/05/20 08:00 BP 137/71 11/05/20 08:11 Pulse Ox 95 11/05/20 08:11 Body Mass Index 28.1 Const: General: cooperative, healthy appearing and no acute distress Resp: Effort & Inspection: normal respiratory effort and able to speak in complete sentences Cardio: Rate: regular rate Peripheral pulses: Peripheral pulses 2+ throughout GI: Palpation (GI): Soft to palpation Skin: Lesions: no lesions Rashes: no rashes Extrem: Other: left knee no ecchymosis, redness, or drainage. Incision intact, debbi intact, no drainage. Wound well approximated. Calf supple nontender. New Aquacel dressing applied. NVI. DS: Data Data Completed and Pending Completed studies during hospitalization [Text1]: Pending at discharge 11/03/20 09:15 Surgical [PTH] Routine Labs on day of discharge: Laboratory Tests 10/27/20 10/27/20 10/27/20 15:17 15:17 15:17 WBC 6.2 RBC 5.35 Hgb 15.2 Hct 45.5 MCV 85.0 MCH 28.4 MCHC 33.4 RDW 12.8 Plt Count 229 MPV 11.3 Immature Gran % (Auto) 0.2 Neut % (Auto) 70.4 Lymph % (Auto) 19.9 L [place] % (Auto) 8.0 Eos % (Auto) 1.0 Baso % (Auto) 0.5 Lymph # (Auto) 1.2 [place] # (Auto) 0.5 Eos # (Auto) 0.1 Baso # (Auto) 0.0 Abs Immat Gran (auto) 0.01 Absolute Neuts (auto) 4.4 Absolute Nucleated RBC 0.000 Nucleated RBC % (auto) 0.0 PT 12.5 INR 1.1 APTT 34.5 Sodium 137 Potassium 4.4 Chloride 104 Carbon Dioxide 24 Anion Gap 13 BUN 20 H Creatinine 1.01 Estim Creat Clear Calc TNP Estimated GFR > 60 Random Glucose 78 Fasting Glucose Calcium 8.8 Total Bilirubin 0.6 AST 16 ALT 14 Alkaline Phosphatase 86 Total Protein 7.4 Albumin 4.2 Free PSA % Free PSA Total PSA 8.27 H Total PSA (off-site) COVID-19 ([facility]) COVID-19 Clin Com Blood Type Antibody Screen 10/27/20 11/03/20 11/03/20 17:44 06:10 06:26 WBC RBC Hgb Hct MCV MCH MCHC RDW Plt Count MPV Immature Gran % (Auto) Neut % (Auto) Lymph % (Auto) [place] % (Auto) Eos % (Auto) Baso % (Auto) Lymph # (Auto) [place] # (Auto) Eos # (Auto) Baso # (Auto) Abs Immat Gran (auto) Absolute Neuts (auto) Absolute Nucleated RBC Nucleated RBC % (auto) PT INR APTT Sodium Potassium Chloride Carbon Dioxide Anion Gap BUN Creatinine Estim Creat Clear Calc Estimated GFR Random Glucose Fasting Glucose Calcium Total Bilirubin AST ALT Alkaline Phosphatase Total Protein Albumin Free PSA 1.8 % Free PSA 21 L Total PSA Total PSA (off-site) 8.6 H COVID-19 ([facility]) Negative COVID-19 Clin Com See Note Blood Type A Positive Antibody Screen NEGATIVE 11/04/20 11/04/20 11/05/20 06:07 06:07 06:03 WBC 7.9 7.7 RBC 4.23 L D 4.09 L Hgb 12.1 L D 11.6 L Hct 36.2 L D 35.0 L MCV 85.6 85.6 MCH 28.6 28.4 MCHC 33.4 33.1 RDW 13.1 13.1 Plt Count 181 190 MPV 11.1 11.0 Immature Gran % (Auto) 0.6 H 0.4 Neut % (Auto) 71.5 70.0 Lymph % (Auto) 11.8 L 13.3 L [place] % (Auto) 14.7 H 14.1 H Eos % (Auto) 1.1 1.9 Baso % (Auto) 0.3 0.3 Lymph # (Auto) 0.9 L 1.0 L [place] # (Auto) 1.2 1.1 Eos # (Auto) 0.1 0.2 Baso # (Auto) 0.0 0.0 Abs Immat Gran (auto) 0.05 H 0.03 Absolute Neuts (auto) 5.6 5.4 Absolute Nucleated RBC 0.000 0.000 Nucleated RBC % (auto) 0.0 0.0 PT INR APTT Sodium 134 L Potassium 4.3 Chloride 104 Carbon Dioxide 24 Anion Gap 10 L BUN 11 Creatinine 0.85 Estim Creat Clear Calc 92.6 Estimated GFR > 60 Random Glucose Fasting Glucose 114 H Calcium 7.6 L D Total Bilirubin AST ALT Alkaline Phosphatase Total Protein Albumin Free PSA % Free PSA Total PSA Total PSA (off-site) COVID-19 ([facility]) COVID-19 [employer] Blood Type Antibody Screen 11/05/20 06:03 WBC RBC Hgb Hct MCV MCH MCHC RDW Plt Count MPV Immature Gran % (Auto) Neut % (Auto) Lymph % (Auto) [place] % (Auto) Eos % (Auto) Baso % (Auto) Lymph # (Auto) [place] # (Auto) Eos # (Auto) Baso # (Auto) Abs Immat Gran (auto) Absolute Neuts (auto) Absolute Nucleated RBC Nucleated RBC % (auto) PT INR APTT Sodium 136 Potassium 4.9 Chloride 105 Carbon Dioxide 24 Anion Gap 12 BUN 11 Creatinine 0.88 Estim Creat Clear Calc 89.4 Estimated GFR > 60 Random Glucose Fasting Glucose 115 H Calcium 7.7 L Total Bilirubin AST ALT Alkaline Phosphatase Total Protein Albumin Free PSA % Free PSA Total PSA Total PSA (off-site) COVID-19 ([facility]) COVID-[employer] Blood Type Antibody Screen Discharge Plan Discharge Patient Disposition: Home Health Service Referrals: Torsten Ryan MD [Physician] - Dell Steele PA-C [Physician Cement Contractor] - (Follow up appt 11/19/20 at 2:15pm) Discharge Medications: New acetaminophen 325 mg Tablet 650 mg PO Q6H PRN (Reason: Pain, Mild (Pain Scale 1-3)) 30 Days Qty: 240 RF: 0 aspirin 325 mg Tablet 325 mg PO BID 14 Days Qty: 28 RF: 0 oxycodone 10 mg tablet 10 mg PO Q6H PRN (Reason: Pain, Moderate (Pain Scale 4-6) 7 Days Qty: 28 RF: 0 sennosides [Senna Lax] 8.6 mg Tablet 17.2 mg PO BEDTIME PRN (Reason: Constipation) 30 Days Qty: 30 RF: 0 Continued losartan 100 mg tablet 100 mg PO DAILY 90 Days Qty: 90 RF: 0 (DME) walker Misc See Rx Instructions .ROUTE .MEDSUPPLY Qty: 1 RF: 0 finasteride 5 mg tablet 5 mg PO DAILY 90 Days Qty: 90 RF: 1 cholecalciferol (vitamin D3) 50 mcg/drop (2, 000 unit/drop) drops 100 mcg PO DAILY RF: 0 omeprazole 20 mg capsule,delayed release(DR/EC) 20 mg PO DAILY RF: 0 Discontinued naproxen 500 mg tablet 500 mg PO BID RF: 0 Discharge Orders: Discharge Order (Routine); Ordered 11/05/20 Ordered By: Taryn Agosto Diet: regular diet Activity on Discharge: Use cane or walker Stand Alone Forms: Patient Portal Discharge page Activity Restrictions/Additional Instructions: * Physical Therapy for ROM 0-120, quad strength, gait training . Use walker for ambulation * Limit stair climbing, No shower, No tub bath, No driving * Continue anticoagulant * Keep Aquacel dressing clean, dry and intact. * Follow up with orthopedics in 2 weeks Visit Report Forms: Patient Portal Discharge page Care Plan Goals: Restore function of left knee Health Concerns: None Plan of Treatment: Physical Therapy Pain management DVT prophylaxis
--- NOTE | 2020-11-05 09:50 | P.F2F_ITS ---
Service Date Service Date: 11/05/20 Reasons for Services Reason for physical therapy: home safety and mobility, therapeutic exercises, restore joint function, gait/transfer training and ADL training Reason for occupational therapy: home safety and mobility, therapeutic exercises, restore joint function, gait/transfer training and ADL training Homebound: Leaving the home is medically contraindicated at this time without the asist of a device and/or another person due th the listed conditions above and below. Reason homebound: unsteady gait / fall risk, leg weakness, pain with ambulation, poor balance / fall risk and unable to drive Homebound supporting statement: Pt. is considered homebound due to recent surgery. Unable to drive, poor balance, poor gait mechanics. Certification: Based on the above findings, I certify that this patient is confined to the home and needs intermittent [facility] care, physical therapy and/or speech therapy, or continues to need occupational therapy. The patient is under my care, and I have initiated the establishment of the plan of care. The patient will be followed by a physician who will periodically review the plan of care.
--- NOTE | 2020-11-05 09:57 | MHC.CM.PN ---
PATIENT IS DISCHARGED HOME TODAY. PLAN IS FOR HOME P.T. [facility]ICE[facility] OF THIS NOTE, NO RESPONSE. CASE MANAGEMENT WILL FOLLOW UP WITH THE PLAN FOR SERVICES. RN AWARE.
--- NOTE | 2020-11-05 10:05 | MHC.CM.PN ---
[facility] IS OFFERING SERVICES. PATIENT IS AWARE.
== END 2020-11-05 11:09 | disposition home health service (06) | DRG 302 ==
LOC: HO.SSSA 06:00 → HO.S3 10:56
PROVIDERS: Physician Assistant; Urology; Absent Provider Physician Assistant; Admitting Provider Orthopaedic Surgery; PCP Nurse Practitioner Family; Visit Provider Orthopaedic Surgery
PROC: 0SRD0JA Replacement of Left Knee Joint with Synthetic Substitute, Uncemented, Open Approach (ICD-10-PCS; CPT 27447; principal; 2020-11-03 07:30)
DX: M17.12 Unilateral primary osteoarthritis, left knee (principal); G47.33 Obstructive sleep apnea (adult) (pediatric); N40.0 Benign prostatic hyperplasia without lower urinary tract symptoms; K21.9 Gastro-esophageal reflux disease without esophagitis; Z20.822 Contact with and (suspected) exposure to COVID-19; Z99.89 Dependence on other enabling machines and devices; Z88.0 Allergy status to penicillin; Z79.899 Other long term (current) drug therapy
CPT/HCPCS: 36415; 73560; 80048; 80053; 84153; 84154; 85025; 85610; 85730; 86850; 86900; 86901; 87635; 88305; 88311; 97110; 97116; 97162; C1776; J1170; J1885; J2250; J2405; J3370

== ENCOUNTER → 2020-11-19 14:06 | Outpatient (BNVA) | payer OTHER, SELFPAY | PROVIDERS: PCP Nurse Practitioner Family; Visit Provider Physician Assistant ==

== ENCOUNTER → 2020-12-17 12:59 | Outpatient (BNVA) | payer OTHER, SELFPAY | PROVIDERS: PCP Nurse Practitioner Family; Visit Provider Orthopaedic Surgery ==

== ENCOUNTER 2020-12-17 14:00 | Outpatient (RCR) | payer OTHER, SELFPAY ==
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
--- NOTE | 2020-12-22 13:09 | MHC.PT.DC ---
[facility] [place] Office [place] Office [place] Office [address] [phone] F: [phone] F: [phone] F: [phone] F: [phone] Physical Therapy Discharge Report Diagnosis: (L) TKA Date of Surgery: 11/03/20 Date of Evaluation: 12/02/20 Date of Discharge: 12/22/20 Treatments to Date: 4 Cancellations to Date: 0 No Shows to Date: 0 Discharge Status: Improved Function Independent with HEP Patient Elected to Stop Discharge Summary: Pt called to discharge stating he is going back to work and will not have time for PT sessions. At time of last visit, he demonstrated 0-4-88. He is to continue to I HEP. Electronically signed by: Danitza Haskins PT Please sign and return to therapist. Thank you for your referral.
== END 2020-12-22 13:09 | disposition home or self-care (01) ==
LOC: HO.PT 14:00
PROVIDERS: Visit Provider Physician Assistant
DX: Z47.1 Aftercare following joint replacement surgery (principal); Z96.652 Presence of left artificial knee joint
CPT/HCPCS: 97110; 97112; 97140; 97161

== ENCOUNTER 2021-01-26 14:40 | Outpatient (REF) | payer OTHER, SELFPAY ==
[2021-01-26 17:12] LABS: Prostate Specific Antigen 6.65 ng/mL (<0.05-4.0)
== END 2021-01-26 14:41 | disposition home or self-care (01) ==
LOC: HO.LAB 14:40
PROVIDERS: PCP Nurse Practitioner Family; Visit Provider Urology
DX: Z12.5 Encounter for screening for malignant neoplasm of prostate (principal); R97.20 Elevated prostate specific antigen [PSA]
CPT/HCPCS: 36415; 84153

== ENCOUNTER → 2021-01-27 15:23 | Outpatient (BNVA) | payer OTHER, SELFPAY | PROVIDERS: PCP Nurse Practitioner Family; Visit Provider Urology | DX: N40.1 Benign prostatic hyperplasia with lower urinary tract symptoms (principal); N13.8 Other obstructive and reflux uropathy; N52.9 Male erectile dysfunction, unspecified; R97.20 Elevated prostate specific antigen [PSA] | CPT/HCPCS: 51798; 81002 ==

== ENCOUNTER → 2021-01-29 12:32 | Outpatient (BNVA) | payer OTHER, SELFPAY | PROVIDERS: Visit Provider Orthopaedic Surgery ==

== ENCOUNTER → 2021-02-09 13:13 | Outpatient (BNVA) | payer OTHER, SELFPAY | PROVIDERS: Visit Provider Orthopaedic Surgery ==

== ENCOUNTER 2021-02-23 11:36 | Day surgery (SDC) | payer OTHER, SELFPAY ==
[2021-02-23 11:48] VITALS: BP 136/74; PULSE 66; RESP 18; TEMP 36.6; O2SAT 97; BMI 29.6
[2021-02-23] MEDS: Lidocaine HCl 1%/Epi 1:100,000 20 ML VIAL 9 ML INFILTRATI (13:15)
--- NOTE | 2021-02-23 13:49 | PC.NURSE ---
Lidocaine/ Epinephrine 1% 9mL pulled. Dr. Anaya administered at bedside to patients left wrist. pt tolerated well.
[2021-02-23 14:35] VITALS: BP 149/84; PULSE 64; RESP 18; TEMP 36.3; O2SAT 97
--- NOTE | 2021-02-23 15:07 | MHC.SHP ---
Pre-Procedural Eval Section B Chief Complaint: carpal tunnel syndrome Allergies: Allergies Allergy/AdvReac Type Severity Reaction Status Date / Time lisinopril Allergy Unknown cough Verified 02/09/21 13:27 penicillin G [PENICILLIN G] Allergy Unknown swelling Verified 02/09/21 13:27 penicillin V Allergy Unknown hand Verified 02/09/21 13:27 swelling, swelling Plan I have reviewed the history and physical and performed a pertinent physical examination on my patient. No changes have occurred unless specified.
--- NOTE | 2021-02-23 15:08 | W.PM.OPN ---
Operative Note Operative Note Date of Service: 02/23/21 Narrative: Preop diagnosis: 1. Left Carpal tunnel syndrome Postop diagnosis: same Procedure: 1. Left Carpal tunnel release Surgeon: Jen Anaya MD Anesthesia: local block using 1% lidocaine with epinephrine Findings: Thickened transverse carpal ligament. EBL: Less than 5 mL Specimens: None Complications: None Disposition: Brought to recovery room in stable condition Plan: Follow-up for 7-10 days for wound check and suture removal Indications: The patient is a 65 years old, with left carpal tunnel syndrome that has been unresponsive to nonoperative management. The risks and benefits of operative treatment including but not limited to risk of damage to blood vessels, nerves, tendons, infection, persistent pain, persistent symptoms, or possible need for additional surgery were discussed with the patient and the patient wishes to proceed with surgery. Procedure: Once consent was obtained a local block was performed using a combination of 1% lidocaine with epinephrine. The patient was then brought back to the operating suite and placed on the operative table in supine position. A tourniquet was applied to the proximal aspect of the left upper extremity and the limb was prepped and draped in a standard surgical fashion. Once assured that we had a good block, a 1.5 cm longitudinal incision was made centered over the carpal tunnel. The incision was made through the skin to the subcutaneous tissues using a #15 blade. Dissection was made down to the level of the transverse carpal ligament with care being taken to protect the palmar cutaneous nerve. Once the transverse carpal ligament was clearly visualized, a longitudinal incision was made in the transverse carpal ligament 1st using a #15 blade, then using tenotomy scissors under direct visualization. Care was taken to look for and protect the motor branch of the median nerve when seen in this area. Once satisfied with our carpal tunnel release the wound was copiously irrigated with normal saline and hemostasis was obtained with a brief period of local pressure. The skin edges were reapproximated with some 5.0 nylon suture material and a sterile dressing was applied. The patient appears to have tolerated the procedure well and with no complications. All digits were well vascularized at the conclusion of the case.
== END 2021-02-23 14:54 | disposition home or self-care (01) ==
PROVIDERS: PCP Nurse Practitioner Family; Visit Provider Orthopaedic Surgery
PROC: (CPT 64721; principal; 2021-02-23 12:40)
DX: G56.02 Carpal tunnel syndrome, left upper limb (principal); I10 Essential (primary) hypertension; G47.33 Obstructive sleep apnea (adult) (pediatric); M35.3 Polymyalgia rheumatica; G89.29 Other chronic pain; Z79.899 Other long term (current) drug therapy; Z99.89 Dependence on other enabling machines and devices; Z88.0 Allergy status to penicillin; Z88.8 Allergy status to other drugs, medicaments and biological substances
CPT/HCPCS: 64721

== ENCOUNTER → 2021-03-09 14:10 | Outpatient (BNVA) | payer OTHER, SELFPAY | PROVIDERS: Visit Provider Orthopaedic Surgery ==

== ENCOUNTER 2021-04-08 09:26 | Day surgery (SDC) | payer OTHER, SELFPAY ==
[2021-04-08 06:47] VITALS: BMI 26.6
[2021-04-08 09:42] VITALS: BP 157/79; PULSE 85; RESP 20; TEMP 35.9; O2SAT 98
--- NOTE | 2021-04-08 09:48 | PC.NURSE ---
pt recieved the [employer] vaccine
--- NOTE | 2021-04-08 11:01 | MHC.SHP ---
Pre-Procedural Eval Section A Date of Service: 04/08/21 Section B Chief Complaint: carpal tunnel Allergies: Allergies Allergy/AdvReac Type Severity Reaction Status Date / Time lisinopril Allergy Unknown cough Verified 04/05/21 10:21 penicillin G [PENICILLIN G] Allergy Unknown swelling Verified 04/05/21 10:21 penicillin V Allergy Unknown hand Verified 04/05/21 10:21 swelling, swelling Plan I have reviewed the history and physical and performed a pertinent physical examination on my patient. No changes have occurred unless specified.
--- NOTE | 2021-04-08 11:02 | W.PM.OPN ---
Operative Note Operative Note Date of Service: 04/08/21 Narrative: Preop diagnosis: 1. Right Carpal tunnel syndrome Postop diagnosis: same Procedure: 1. right Carpal tunnel release Surgeon: Jen Anaya MD Anesthesia: local block using 1% lidocaine with epinephrine Findings: Thickened transverse carpal ligament. EBL: Less than 5 mL Specimens: None Complications: None Disposition: Brought to recovery room in stable condition Plan: Follow-up for 7-10 days for wound check and suture removal Indications: The patient is 65 years old, with right carpal tunnel syndrome that has been unresponsive to nonoperative management. The risks and benefits of operative treatment including but not limited to risk of damage to blood vessels, nerves, tendons, infection, persistent pain, persistent symptoms, or possible need for additional surgery were discussed with the patient and the patient wishes to proceed with surgery. Procedure: Once consent was obtained a local block was performed using a combination of 1% lidocaine with epinephrine. The patient was then brought back to the operating suite and placed on the operative table in supine position. A tourniquet was applied to the proximal aspect of the right upper extremity and the limb was prepped and draped in a standard surgical fashion. Once assured that we had a good block, a 1.5 cm longitudinal incision was made centered over the carpal tunnel. The incision was made through the skin to the subcutaneous tissues using a #15 blade. Dissection was made down to the level of the transverse carpal ligament with care being taken to protect the palmar cutaneous nerve. Once the transverse carpal ligament was clearly visualized, a longitudinal incision was made in the transverse carpal ligament 1st using a #15 blade, then using tenotomy scissors under direct visualization. Care was taken to look for and protect the motor branch of the median nerve when seen in this area. Once satisfied with our carpal tunnel release the wound was copiously irrigated with normal saline and hemostasis was obtained with a brief period of local pressure. The skin edges were reapproximated with some 5.0 nylon suture material and a sterile dressing was applied. The patient appears to have tolerated the procedure well and with no complications. All digits were well vascularized at the conclusion of the case.
[2021-04-08 11:29] VITALS: BP 135/77; PULSE 71; RESP 16; TEMP 36.1; O2SAT 95
== END 2021-04-08 11:42 | disposition home or self-care (01) ==
PROVIDERS: PCP Nurse Practitioner Family; Visit Provider Orthopaedic Surgery
PROC: (CPT 64721; principal; 2021-04-08 11:00)
DX: G56.01 Carpal tunnel syndrome, right upper limb (principal); I10 Essential (primary) hypertension; G47.33 Obstructive sleep apnea (adult) (pediatric); Z79.899 Other long term (current) drug therapy; Z99.89 Dependence on other enabling machines and devices; Z88.0 Allergy status to penicillin; Z88.8 Allergy status to other drugs, medicaments and biological substances
CPT/HCPCS: 64721

== ENCOUNTER 2021-04-14 06:04 | Outpatient (REF) | payer OTHER, SELFPAY ==
[2021-04-14 07:39] LABS: Alanine Aminotransferase 10 U/L (0-40); Albumin Level 3.8 g/dL (3.5-5.0); Alkaline Phosphatase 87 U/L (39-117); Anion Gap 14 (12-20); Aspartate Amino Transferase 13 U/L (5-37); Bilirubin Total 0.9 mg/dL (0.0-1.0); Blood Urea Nitrogen 21 mg/dL (9-16); Calcium 9.2 mg/dL (8.4-10.2); Carbon Dioxide 22 mmol/L (22-29); Chloride 107 mmol/L (96-108); Cholesterol 180 mg/dL; Estimated Glomerular Filt Rate > 60; Glucose Fasting 106 mg/dL (60-99); HDL Cholesterol 45 mg/dL; LDL Cholesterol Calculated 120 mg/dl; Potassium 4.8 mmol/L (3.3-5.1); Sodium 138 mmol/L (135-145); Total Protein 6.9 g/dL (6.5-8.0); Triglycerides 75 mg/dL
[2021-04-14 07:53] LABS: TSH reflex Free T4 2.58 uIU/mL (0.32-4.0)
== END 2021-04-14 06:05 | disposition home or self-care (01) ==
LOC: HO.LAB 06:04
PROVIDERS: PCP Nurse Practitioner Family; Visit Provider Nurse Practitioner Family
DX: Z00.00 Encounter for general adult medical examination without abnormal findings (principal)
CPT/HCPCS: 36415; 80053; 80061; 84443

== ENCOUNTER → 2021-04-19 11:21 | Outpatient (BNVA) | payer OTHER, SELFPAY | PROVIDERS: PCP Nurse Practitioner Family; Visit Provider Orthopaedic Surgery ==

== ENCOUNTER 2023-05-23 11:01 | Outpatient (AMB) | payer MEDICARE, SELFPAY ==
--- NOTE | 2023-05-23 11:07 | MHC.PC.OV ---
Vital Signs 05/23/23 11:08 Height 5 ft 8 in Weight 169 lb 6 oz BMI 25.8 BP 128/86 Blood Pressure Location Lt brachial Position Sitting Pulse 82 Pulse Source Pulse Oximeter Pulse Oximetry (%) 98 Oxygen Delivery Method Room Air Intake Visit Reasons: Annual PE Allergies lisinopril Allergy (Unknown, Verified 05/23/23 11:13) cough penicillin G [PENICILLIN G] Allergy (Unknown, Verified 05/23/23 11:13) swelling penicillin V Allergy (Unknown, Verified 05/23/23 11:13) hand swelling, swelling Tobacco use date assessed: 05/23/23 Fall risk assessment: No Falls in past year Last assessed Fall Risk: 05/23/23 Dental Screening Dental Screen Date: 05/23/23 Did you have a dental visit in the last 12 months?: No Did you have a dental problem in the last 6 months where you did not have access to dental care?: No Was dental information given to patient?: No HPI Annual PE HPI Details Pt is here for a PE. Will order labs. Colon screen is up to date. Due for PSA, will order. Denies dribbling with urination, weak stream, and nocturia. Pt has seen urology in the past due to elevated PSA, will refer him back to Dr. Mayorga. Recommended pt get the Prevnar 20 vaccine from his pharmacy. [facility] Medical History (Updated 05/23/23 @ 11:26 by DEANA Kelly-) Bilateral primary osteoarthritis of knee BPH with obstruction/lower urinary tract symptoms Carpal tunnel syndrome Erectile dysfunction GERD (gastroesophageal reflux disease) History of elevated prostate specific antigen (PSA) HTN (hypertension) Lumbar spondylosis Nocturia TANIKA on CPAP Osteoarthritis Osteoarthritis of left knee Other chronic pain Other intervertebral disc degeneration, lumbar region PMR (polymyalgia rheumatica) Pre-op evaluation Surgical History (Updated 05/10/23 @ 17:33 by DEANA Kelly-NGUYỄN) H/O prior ablation treatment History of arthroscopy of both knees History of ear surgery History of prostate biopsy History of total right knee replacement Hx of colonoscopy Hx of esophagogastroduodenoscopy S/P ORIF (open reduction internal fixation) fracture Family History Father No problems noted. Mother No problems noted. Brother No problems noted. Brother No problems noted. Brother No problems noted. Son No problems noted. 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 Cognitive needs: No Hearing needs: No Vision needs: No Questionnaire Thrive Questionnaire Date Thrive assessed: 04/05/21 Review of Systems Const Denies chills and Denies fever(s) Eyes Denies blurry vision ENT Denies vertigo, Denies dizziness and Denies sore throat Card Denies chest pain at rest, Denies chest pain with activity, Denies diaphoresis, Denies dyspnea and Denies dyspnea on exertion Resp Denies cough, Denies dyspnea, Denies dyspnea on exertion and Denies wheezing GI Denies abdominal pain, Denies melena, Denies hematochezia, Denies constipation, Denies diarrhea and Denies loose stools Denies hematuria Musc Denies numbness and Denies tingling Skin/Breast Denies lesions Neuro Denies vertigo, Denies dizziness, Denies numbness and Denies tingling Psych Denies anxiety, Denies depression, Denies homicidal ideation, Denies suicidal ideation and Denies other (substance abuse) Aller/Immun Denies wheezing Physical exam (Primary Care) Vital Signs: Last Vital Signs Pulse 82 05/23/23 11:08 BP 128/86 05/23/23 11:08 Pulse Ox 98 05/23/23 11:08 Oxygen Delivery Method Room Air 05/23/23 11:08 BMI result Body Mass Index 25.8 Tobacco/Smoking Status: Tobacco use Status Tobacco use date assessed 05/23/23 05/23/23 11:15 Patient Tobacco Use Status Never used Tobacco 05/23/23 11:15 e-Cigarette/Vaping Use Never Used 05/23/23 11:15 Thrive Assessment: Date of Thrive Assessment Date Thrive assessed 04/05/21 05/23/23 11:15 Const General: cooperative Nutritional Appearance: well nourished Orientation/consciousness: patient oriented x3 HENMT Head: Yes normal to inspection, Yes normocephalic and Yes atraumatic Ears: TM's normal bilaterally Eyes General: appearance normal, both eyes and all related structures Alignment and Position: alignment normal and position normal Neck Neck: Yes normal visual inspection and Yes no lymphadenopathy Thyroid: Thyroid normal Resp Effort & Inspection: normal respiratory effort Auscultation: clear to auscultation bilaterally Cardio Rate: regular rate Rhythm: regular rhythm Heart sounds: S1 normal heart sound present, S2 normal heart sound present and no murmurs GI Palpation (GI): Soft to palpation and nontender Auscultation: normal bowel sounds Other: prostate felt enlarged and indurated Male General Exam: Yes normal external exam Penis: normal penis Scrotum: scrotum normal, testes descended bilaterally and no inguinal hernias Testes: no testicular mass Skin Rashes: no rashes Neuro General: patient oriented x3, moves all extremities, no focal motor deficits and deep tendon reflexes 2+ bilaterally Romberg Test: Negative Extrem Other: right knee with heeling vertical scar (recent total knee), with steri-strips, mostly intact. No signs of infection noted Psych Appearance: grossly normal Mental Status: mental status grossly normal Speech and movement: Normal speech and movement present Affect: normal affect Attitude: cooperative Thought process: Normal thought process present Thought content: Normal thought content present Insight: Good insight present (Psych) Judgement: Good judgement present (Psych) Assessment and Plan Assessment & Plan (1) Physical exam: Code(s): Z00.00 - Encounter for general adult medical examination without abnormal findings Plan: Labs ordered (2) History of elevated prostate specific antigen (PSA): Code(s): Z87.898 - Personal history of other specified conditions Plan: PSA ordered, referred to urology Plan The patient agreed to the use of a medical lab director for this encounter. Scribed for JACOB Mukherjee by Chantal Alexandra medical lab director, on 05/23/2023 at 11:30 EST. Orders: Orders Comprehensive Ono. Panel Fast Today Z00.00 - Encounter for general adult medical examination without abnormal findings Lipid Panel Today Z00.00 - Encounter for general adult medical examination without abnormal findings TSH reflex Free T4 Today Z00.00 - Encounter for general adult medical examination without abnormal findings Complete Blood Count Auto Diff Today Z00.00 - Encounter for general adult medical examination without abnormal findings UA CC w/rflx Micro + Cult Today Z00.00 - Encounter for general adult medical examination without abnormal findings Prostate Specific Antigen Scr Today Z87.898 - Personal history of other specified conditions AMB EKG-In Office Today Z00.00 - Encounter for general adult medical examination without abnormal findings Referrals Urology Referral Z87.898 - Personal history of other specified conditions Coding Level of Care Code Est Pt Prev Care >65y(59261) Diagnoses Physical exam Z00.00 History of elevated prostate specific antigen (PSA) Z87.898
[2023-05-23 11:08] VITALS: BP 128/86; PULSE 82; O2SAT 98; BMI 25.8
== END 2023-05-23 12:01 | disposition home or self-care (01) ==
PROVIDERS: Visit Provider Nurse Practitioner Family
DX: Z00.00 Encounter for general adult medical examination without abnormal findings (principal); Z87.898 Personal history of other specified conditions
CPT/HCPCS: 99397

== ENCOUNTER 2023-05-29 10:06 | Outpatient (REF) | payer MEDICARE, SELFPAY ==
[2023-05-29 13:22] LABS: MANUAL DIFF FLAG NO
[2023-05-29 13:51] LABS: Basophils Percent Auto 0.4 % (0-2); Eosinophils Absolute Auto 0.2 X10*3/uL (0.0-0.4); Eosinophils Percent Auto 3.8 % (0-4); Hematocrit 45.6 % (42.0-52.0); Hemoglobin 15.2 g/dl (14.0-18.0); Imm Gran Abs Auto 0.01 X10*3/uL (0.00-0.03); Imm Gran Pct Auto 0.2 % (0.0-0.4); Lymphocytes Absolute Auto 0.9 X10*3/uL (1.2-4.9); Lymphocytes Percent Auto 19.4 % (20-40); Mean Corpuscular HGB Conc 33.3 g/dl (31.0-36.0); Mean Corpuscular Hemoglobin 27.7 pg (27.0-33.0); Mean Corpuscular Volume 83.1 fL (80.0-98.0); Mean Platelet Volume 11.2 fL (9.4-12.4); Monocytes Absolute Auto 0.3 X10*3/uL (0.1-1.2); Monocytes Percent Auto 7.5 % (2-11); Neutrophils Absolute Auto 3.1 x10*3/uL (2.0-8.3); Neutrophils Percent Auto 68.7 % (45-73); Platelet Count 261 X10*3/uL (160-400); Red Blood Count 5.49 X10*6/uL (4.60-5.80); Red Cell Distribution Width 13.6 % (11.0-16.0); White Blood Count 4.5 X10*3/uL (4.8-10.8)
[2023-05-29 14:19] LABS: Alanine Aminotransferase 9 U/L (0-40); Albumin Level 4.1 g/dL (3.5-5.0); Alkaline Phosphatase 91 U/L (39-117); Anion Gap 14 (12-20); Aspartate Amino Transferase 16 U/L (5-37); Blood Urea Nitrogen 16 mg/dL (9-16); Calcium 9.7 mg/dL (8.4-10.2); Carbon Dioxide 24 mmol/L (22-29); Chloride 103 mmol/L (96-108); Cholesterol 189 mg/dL (<200); Estimated Glomerular Filt Rate > 60; Glucose Fasting 96 mg/dL (60-99); HDL Cholesterol 45 mg/dL (>40); LDL Cholesterol Calculated 123 mg/dL (<100); Potassium 4.7 mmol/L (3.3-5.1); Sodium 136 mmol/L (135-145); Total Protein 7.7 g/dL (6.5-8.0); Triglycerides 107 mg/dL (<150)
[2023-05-29 14:19] LABS: Appearance Urine Clear; Color Urine Dark Yellow; Glucose Urine UA Negative (Negative); Leukocyte Esterase Urine Negative (Negative); Nitrite Urine Negative (Negative); PH 5.5 (5.0-9.0); Specific Gravity - Urine >= 1.030 (1.005-1.025); Urine Blood Negative (Negative); Urine Ketones Trace mg/dL (Negative); Urine Protein Trace mg/dL (Neg-Trace)
[2023-05-29 14:20] LABS: Prostate Specific Antigen Scr 7.93 ng/mL (<0.05-4.0)
[2023-05-29 14:34] LABS: TSH reflex Free T4 2.22 uIU/mL (0.32-4.0)
== END 2023-05-29 10:07 | disposition home or self-care (01) ==
LOC: HO.HMGCLDS 10:06
PROVIDERS: PCP Nurse Practitioner Family; Visit Provider Nurse Practitioner Family
DX: Z00.00 Encounter for general adult medical examination without abnormal findings (principal); Z87.898 Personal history of other specified conditions; Z12.5 Encounter for screening for malignant neoplasm of prostate; I10 Essential (primary) hypertension; Z13.29 Encounter for screening for other suspected endocrine disorder; Z13.220 Encounter for screening for lipoid disorders
CPT/HCPCS: 36415; 80053; 80061; 81003; 84153; 84443; 85025

== ENCOUNTER 2023-07-11 09:54 | Outpatient (AMB) | payer MEDICARE, SELFPAY ==
--- NOTE | 2023-07-11 09:56 | A.OFFVIS_ITS ---
Intake Intake Visit Reasons: BPH w urinary obs/LUTS (Seen 2019) Intake Note: New Patient presents for initial visit BPH (previously seen Dr. 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: No Accompanied by: Self / Same As Patient Allergies lisinopril Allergy (Unknown, Verified 07/11/23 11:00) cough penicillin G [PENICILLIN G] Allergy (Unknown, Verified 07/11/23 11:00) swelling penicillin V Allergy (Unknown, Verified 07/11/23 11:00) hand swelling, swelling Medication List - Last Reconciled 07/11/23 by WOJCIECH SeniorP- finasteride 5 mg PO DAILY 90 days irbesartan 300 mg PO DAILY 90 days naproxen sodium 440 mg PO DAILY omeprazole 20 mg PO DAILY 90 days walker Folding front wheeled walker HPI HPI Comments 2 History of Present Illness Details Mingo is a pleasant 67 year [address] male of Dr. Nunez. He has a PMH of osteoarthritis, TANIKA on CPAP, polymyalgia rheumatica, erectile dysfunction, carpal tunnel, hypertension, GERD, lumbar spondylosis, chronic pain, and elevated PSA. He presents to the office today for a follow-up of his elevated PSA. In discussion with the patient today he reports to be doing and feeling well. He reports being in [place] over the last year and has not had any urology follow up in this time. When asked he reports at times having weak urinary stream however does not find this bothersome and states it is not consistent. When asked he reports compliance with 5 mg of finasteride daily. Discussed rising PSA despite compliance with 5 mg of finasteride daily. Discussed most recent PSA 05/31 7.9. Discussed at length prostate biopsy verses another MRI of the prostate. Discussed at length risks and benefits of prostate biopsy verses MRI of the prostate. Patient's PSA has been highly variable. He discusses having had 2 prior negative biopsies in the past and believes his last biopsy was in 2012. Discussed obtaining MRI of the prostate for question of targeted biopsy in the near future. Previous MRI in 2019 with PI-RADS 2, 65 gram prostate, and with no suspicious areas. Patient otherwise denies any bothersome urinary issues or concerns at this time. He denies urinary urgency, urinary frequency, incontinence, nocturia, hematuria, dysuria, foul smelling urine, flank pain, fever, and or chills. He is happy with his current voiding parameters. PREVIOUS OFFICE NOTE: Elevated PSA/Abnormal JAMEL: Had seen blood in urine Recommend cystoscopy Cytology will be sent Prior smoking history. He presents for further evaluation of elevated PSA. Current management is 5AR 2 x prior biopsies since [address] Hector negative. Laboratory investigations include 09/25 PSA 4.6 F 11% 03/27 5.8 - PCPT 15% high risk 09/26 5.7, 04/27 6.6, 10/29 8.3, 01/27 6.6, 05/31 7.9 Imaging investigations include a prostate MRI Yes 03/27 MRI - PiRADS 2, 65 gm, no suspicious areas Individualized Prostate Cancer Risk Calculator 5-10% high risk, Would like to continue with observation and understands and accepts the risks of a possible delay in diagnosis. A TRUS biopsy has been performed and is negative 2014 Overall symptoms are mild. Associated conditions diabetes No dyslipidemia No dysuria No erectile dysfunction Yes hematuria No hypertension No prostatitis No renal insufficieny No urinary retention No urinary tract infections No Therapeutic plan will be continued surveillance [facility] Medical History Osteoarthritis Osteoarthritis of left knee TANIKA on CPAP PMR (polymyalgia rheumatica) Pre-op evaluation Erectile dysfunction Carpal tunnel syndrome HTN (hypertension) GERD (gastroesophageal reflux disease) Lumbar spondylosis Other intervertebral disc degeneration, lumbar region Other chronic pain BPH with obstruction/lower urinary tract symptoms Nocturia History of elevated prostate specific antigen (PSA) Bilateral primary osteoarthritis of knee Surgical History (Updated 05/10/23 @ 17:33 by Jagdeep Aguillon, [facility]-) History of total right knee replacement S/P ORIF (open reduction internal fixation) fracture Hx of colonoscopy Hx of esophagogastroduodenoscopy H/O prior ablation treatment History of prostate biopsy History of arthroscopy of both knees History of ear surgery Family History Father No problems noted. Mother No problems noted. Brother No problems noted. Brother No problems noted. Brother No problems noted. Son No problems noted. 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 Cognitive needs: No Hearing needs: No Vision needs: No Review of Systems Const Reports as per HPI Eyes Reports no additional complaints ENT Reports no additional complaints Card Reports as per HPI Resp Reports as per HPI GI Reports as per HPI Reports as per HPI Musc Reports as per HPI Neuro Reports no additional complaints Psych Reports no additional complaints Endo Reports no additional complaints Physical Exam Const General: cooperative, healthy appearing, comfortable, no acute distress, well developed, alert and awake Orientation/consciousness: patient oriented x3 Limitations: no limitations HEENT Head: Yes normal to inspection, Yes normocephalic and Yes atraumatic Ears: hearing grossly normal bilaterally Eyes General: appearance normal, both eyes and all related structures Neck Neck: Yes normal visual inspection and Yes trachea midline Chest Chest palpation & inspection: normal inspection of the chest Resp Effort & Inspection: normal respiratory effort and able to speak in complete sentences Cardio Rate: regular rate GI Inspection: Yes normal to inspection General: Yes no CVA tenderness Back/Spine/Pelvis Back: no CVA tenderness Skin General skin exam: no rashes or lesions noted Neuro General: patient oriented x3 Extrem General: Yes normal to inspection Psych Appearance: grossly normal and well kempt Mental Status: mental status grossly normal Speech and movement: Normal speech and movement present and Clear speech present Affect: normal affect Attitude: cooperative Thought process: Normal thought process present Thought content: Normal thought content present Insight: Fair insight present (Psych) Judgement: Fair judgement present (Psych) Office Procedures Post Void Residual Post Residual Void Post Void Residual (PVR): 0 [id number] Void Residual by ultrasound Results AMB Urinalysis, Automated UA Leukoctes 0 Krzysztof/uL Last Edit by Stiven Coronado on 07/11/23 10:19 UA Nitrite Last Edit by Stiven Coronado on 07/11/23 10:19 UA Urobilinogen 0.2 mg/dL Last Edit by Stiven Coronado on 07/11/23 10:19 UA Protein 0 mg/dL Last Edit by Stiven Coronado on 07/11/23 10:19 UA pH 6.0 Last Edit by Stiven Amespaul on 07/11/23 10:19 UA Blood 0 Sunday/uL Last Edit by Stiven Amespaul on 07/11/23 10:19 UA Specific [place] 1.025 Last Edit by Stiven Huipaul on 07/11/23 10:19 UA Ketone Negative Last Edit by Gabriellina Huipaul on 07/11/23 10:19 UA Bilirubin 0 mg/dL Last Edit by Baldevshey Huipaul on 07/11/23 10:19 UA Glucose 0 mg/dL Last Edit by Stiven Huipaul on 07/11/23 10:19 Results Reviewed Results Reviewed: Laboratory Last Values Urine pH (Auto) 6.0 07/11/23 10:15 Specific [place] (Auto) 1.025 07/11/23 10:15 Urine Protein (Auto) 0 mg/dL 07/11/23 10:15 Glucose (UA)(Auto) 0 mg/dL 07/11/23 10:15 Urine Ketones (Auto) Negative 07/11/23 10:15 Urine Blood (Auto) 0 Sunday/uL 07/11/23 10:15 Urine Bilirubin (Auto) 0 mg/dL 07/11/23 10:15 Urine Urobilinogen (Auto) 0.2 mg/dL 07/11/23 10:15 Leukocyte Esterase (Auto) 0 Krzysztof/uL 07/11/23 10:15 Assessment & Plan Assessment & Plan (1) Elevated PSA: Code(s): R97.20 - Elevated prostate specific antigen [PSA] (2) Weak urinary stream: Code(s): R39.12 - Poor urinary stream Plan In office urinalysis results reviewed with the patient today. Recent PSA results reviewed with the patient today. Discussed at length potential causes for elevated PSA. Discuss and stressed the importance of follow-up given variably high PSAs Discussed at length prostate biopsy verses MRI of the prostate; discussed risks and benefits of prostate biopsy verses MRI of the prostate Will obtain MRI of the prostate Discussed at length possible near future targeted prostate biopsy Refill provided on finasteride 5 mg daily Patient denies any bothersome urinary issues. Follow-up in 1 month with imaging to be completed prior; or sooner with any issues, concerns, and or questions Orders: Orders MR pelvis wo/w con Today C61 - Malignant neoplasm of prostate AMB Urinalysis Automated Today Z13.9 - Encounter for screening, unspecified AMB Post Void Residual by ultrasound Today N13.8 - Other obstructive and reflux uropathy, N40.1 - Benign prostatic hyperplasia with lower urinary tract symptoms Medications: Refilled finasteride 5 mg PO DAILY 90 days 90 tabs 4RF N13.8 - Other obstructive and reflux uropathy, N40.1 - Benign prostatic hyperplasia with lower urinary tract symptoms Patient Instructions: The patient had an opportunity to ask questions regarding the treatment plan. All questions were answered. Physical exam, labs, and imaging were discussed and reviewed in detail. As well as risks, benefits, and discussion of treatment choices. No major barriers to understanding were identified. The patient expressed understanding and agreement with the above treatment plan. The patient was made aware they should contact our office by phone for worsening of their current condition, the appearance of new symptoms, or with any questions or concerns. Compliance is encouraged with any medications and follow up testing that is ordered. It is a privilege to be allowed the opportunity to participate in? your urological care.? Again, if you have any questions or concerns If you have any questions or concerns please do not hesitate to contact me. The office is [phone]. This note is constructed using voice recognition software. While every effort has been made to ensure accuracy instrument lens inspector errors may have been included. Yours sincerely, JACOB Senior Coding Level of Care Code Est Pt Level 3 (50451) Diagnoses Elevated PSA R97.20 Weak urinary stream R39.12 CPT Codes Post Residual Void - PVR CPT Code: 13716-Mcdy Void Residual by ultrasound ([id number])
== END 2023-07-11 11:13 | disposition home or self-care (01) ==
PROVIDERS: PCP Nurse Practitioner Family; Visit Provider Nurse Practitioner Family
DX: R97.20 Elevated prostate specific antigen [PSA] (principal); R39.12 Poor urinary stream
CPT/HCPCS: 99213

== ENCOUNTER → 2023-07-11 09:54 | Outpatient (BNVA) | payer MEDICARE, SELFPAY | PROVIDERS: PCP Nurse Practitioner Family; Visit Provider Nurse Practitioner Family | DX: N40.1 Benign prostatic hyperplasia with lower urinary tract symptoms (principal); N13.8 Other obstructive and reflux uropathy; R39.12 Poor urinary stream; R97.20 Elevated prostate specific antigen [PSA]; Z79.899 Other long term (current) drug therapy | CPT/HCPCS: 51798; 81003; 99212 ==

== ENCOUNTER 2023-08-25 10:57 | Outpatient (AMB) | payer MEDICARE, SELFPAY ==
--- NOTE | 2023-08-25 11:32 | MHC.OFFVIS ---
Intake Intake Visit Reasons: 1m/MRI Intake Note: Patient is Present for Follow Up Urology Medication: Finasteride, Antibiotic Allergies: Penicillin Blood Thinners: None Pharmacy: Allergies lisinopril Allergy (Unknown, Verified 07/11/23 11:00) cough penicillin G [PENICILLIN G] Allergy (Unknown, Verified 07/11/23 11:00) swelling penicillin V Allergy (Unknown, Verified 07/11/23 11:00) hand swelling, swelling Medication List - Last Reconciled 08/25/23 by Thom Mayorga MD finasteride 5 mg PO DAILY 90 days irbesartan 300 mg PO DAILY 90 days naproxen sodium 440 mg PO DAILY omeprazole 20 mg PO DAILY 90 days walker Folding front wheeled walker HPI HPI Comments History of Present Illness Details Mingo is a pleasant male. He is a patient Dr. Scott. He seen for the following urologic conditions - elevated PSA - erectile dysfunction Variable PSA Repeat MRI shows no areas of suspicion Elevated PSA/Abnormal JAMEL: Had seen blood in urine Recommend cystoscopy Cytology will be sent Prior smoking history. He presents for further evaluation of elevated PSA. Current management is 5AR 2 x prior biopsies since [address] Hector negative. Laboratory investigations include 09/25 PSA 4.6 F 11% 03/27 5.8 - PCPT 15% high risk 09/26 5.7, 04/27 6.6, 10/29 8.3, 01/27 6.6, 05/31 7.9 Imaging investigations include a prostate MRI Yes 03/27 MRI - PiRADS 2, 65 gm, no suspicious areas, 07/31 80 g prostate no suspicious areas Individualized Prostate Cancer Risk Calculator 5-10% high risk, Would like to continue with observation and understands and accepts the risks of a possible delay in diagnosis. A TRUS biopsy has been performed and is negative 2012, 2014 Overall symptoms are mild. Associated conditions erectile dysfunction Yes Therapeutic plan will be continued surveillance [facility] Medical History Osteoarthritis Osteoarthritis of left knee TANIKA on CPAP PMR (polymyalgia rheumatica) Pre-op evaluation Erectile dysfunction Carpal tunnel syndrome HTN (hypertension) GERD (gastroesophageal reflux disease) Lumbar spondylosis Other intervertebral disc degeneration, lumbar region Other chronic pain BPH with obstruction/lower urinary tract symptoms Nocturia History of elevated prostate specific antigen (PSA) Bilateral primary osteoarthritis of knee Surgical History (Updated 05/10/23 @ 17:33 by Jagdeep Aguillon, [facility]) History of total right knee replacement S/P ORIF (open reduction internal fixation) fracture Hx of colonoscopy Hx of esophagogastroduodenoscopy H/O prior ablation treatment History of prostate biopsy History of arthroscopy of both knees History of ear surgery Family History Father No problems noted. Mother No problems noted. Brother No problems noted. Brother No problems noted. Brother No problems noted. Son No problems noted. 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 Cognitive needs: No Hearing needs: No Vision needs: No Review of Systems Const Denies chills and Denies fever(s) Card Reports no additional complaints and Denies syncope Resp Denies cough GI Denies abdominal pain and Denies heartburn Reports as per HPI and Denies change in libido Neuro Denies syncope Psych Denies change in libido Endo Denies change in libido Physical Exam Const General: cooperative, healthy appearing, comfortable and no acute distress Orientation/consciousness: patient oriented x3 HEENT Face and sinus: Yes normal facial exam Mouth: moist mucous membranes Neck Neck: Yes normal visual inspection, Yes full ROM and Yes trachea midline Chest Chest palpation & inspection: normal inspection of the chest Resp Effort & Inspection: normal respiratory effort, able to speak in complete sentences and no respiratory distress GI Inspection: Yes normal to inspection Back/Spine/Pelvis Cervical Spine: normal cervical lordosis Thoracic/Lumbar Spine: thoracic and lumbar spine normal to inspection Skin General skin exam: no rashes or lesions noted Neuro General: patient oriented x3, gait normal, tone normal and moves all extremities Extrem General: Yes normal to inspection and Yes capillary refill normal Assessment & Plan Assessment & Plan (1) Weak urinary stream: Code(s): R39.12 - Poor urinary stream (2) Elevated PSA: Code(s): R97.20 - Elevated prostate specific antigen [PSA] (3) BPH w urinary obs/LUTS: Code(s): N40.1 - Benign prostatic hyperplasia with lower urinary tract symptoms; N13.8 - Other obstructive and reflux uropathy Plan Six month follow-up PSA Orders: Orders PSA,Total (Free>4and<10) 6 Months R97.20 - Elevated prostate specific antigen [PSA] Patient Instructions: Imaging studies, laboratory and physical exam results were discussed and reviewed in detail. No major barriers to patient understanding were identified. An opportunity to ask questions regarding the treatment plan was provided. All questions were answered. The patient expressed understanding and agreement with the above treatment plan. The patient is aware they should contact our office by phone for worsening of their current condition or the appearance of new urologic symptoms. Compliance is encouraged with any medications and followup testing that is ordered. It is a privilege to participate in the urologic care of your patient. If you have any questions or concerns regarding treatment for the above conditions, or other urologic issues, please do not hesitate to contact me. The office telephone contact is [phone]. This note is constructed using voice recognition software. While every effort has been made to ensure accuracy egg smeller errors may have been included. Yours sincerely, Dr Thom Mayorga MD, [facility] - Urology Providers of Expert, Compassionate Care for the Genitourinary System Coding Level of Care Code Est Pt Level 3 (61685) Diagnoses Weak urinary stream R39.12 Elevated PSA R97.20 BPH w urinary obs/LUTS N40.1; N13.8
== END 2023-08-25 12:17 | disposition home or self-care (01) ==
PROVIDERS: PCP Nurse Practitioner Family; Visit Provider Urology
DX: N40.1 Benign prostatic hyperplasia with lower urinary tract symptoms (principal); R39.12 Poor urinary stream; R97.20 Elevated prostate specific antigen [PSA]; N13.8 Other obstructive and reflux uropathy
CPT/HCPCS: 99213

== ENCOUNTER → 2023-08-25 10:57 | Outpatient (BNVA) | payer MEDICARE, SELFPAY | PROVIDERS: PCP Nurse Practitioner Family; Visit Provider Urology | DX: N40.1 Benign prostatic hyperplasia with lower urinary tract symptoms (principal); N13.8 Other obstructive and reflux uropathy; R39.12 Poor urinary stream; R97.20 Elevated prostate specific antigen [PSA] | CPT/HCPCS: 99212 ==

== ENCOUNTER 2024-02-08 13:46 | Outpatient (REF) | payer MEDICARE, SELFPAY ==
[2024-02-12 12:33] LABS: Free Prostate Spec Ag 1.1 ng/mL; Percent Free Prostate Spec Ag 18 % (calc) (>25)
== END 2024-02-08 13:47 | disposition home or self-care (01) ==
LOC: HO.LAB 13:46
PROVIDERS: PCP Nurse Practitioner Family; Visit Provider Urology
DX: Z12.5 Encounter for screening for malignant neoplasm of prostate (principal); R97.20 Elevated prostate specific antigen [PSA]
CPT/HCPCS: 36415; 84153; 84154

== ENCOUNTER 2024-02-22 09:25 | Outpatient (AMB) | payer MEDICARE, SELFPAY ==
--- NOTE | 2024-02-22 09:26 | MHC.OFFVIS ---
Intake Visit Reasons: 6m/PSA(set) Intake Note: Patient is Present for Telephone Follow Up For Urology Med: Finasteride Antibiotic Allergy:Penicillins Blood Thinner:None Allergies lisinopril Allergy (Unknown, Verified 07/11/23 11:00) cough penicillin G [PENICILLIN G] Allergy (Unknown, Verified 07/11/23 11:00) swelling penicillin V Allergy (Unknown, Verified 07/11/23 11:00) hand swelling, swelling Medication List - Last Reconciled 02/22/24 by Thom Mayorga MD finasteride 5 mg PO DAILY 90 days irbesartan 300 mg PO DAILY 90 days naproxen sodium 440 mg PO DAILY omeprazole 20 mg PO DAILY 90 days walker Folding front wheeled walker HPI Comments Details: Mingo is a pleasant male. He is a patient Dr. Scott. He seen for the following urologic conditions - elevated PSA - erectile dysfunction - lower urinary tract symptoms Telemedicine Evaluation 15 min Consultation [employer] attempted PSA - 03/01 5.7 18% Good urination maintained Continue six-month follow-up Repeat MRI shows no areas of suspicion Elevated PSA/Abnormal JAMEL: Had seen blood in urine Recommend cystoscopy Cytology will be sent Prior smoking history. He presents for further evaluation of elevated PSA. Current management is 5AR 2 x prior biopsies since [address] Hector negative. Laboratory investigations include 09/25 PSA 4.6 F 11% 03/27 5.8 - PCPT 15% high risk, 09/26 5.7, 04/27 6.6, 10/29 8.3, 01/27 6.6, 05/31 7.9, 03/01 5.7 18% Imaging investigations include a prostate MRI Yes 03/27 MRI - PiRADS 2, 65 gm, no suspicious areas, 07/31 80 g prostate no suspicious areas Individualized Prostate Cancer Risk Calculator 5-10% high risk, Would like to continue with observation and understands and accepts the risks of a possible delay in diagnosis. A TRUS biopsy has been performed and is negative 2014 Overall symptoms are mild. Associated conditions erectile dysfunction Yes Therapeutic plan will be continued surveillance [facility] Medical History Osteoarthritis Osteoarthritis of left knee TANIKA on CPAP PMR (polymyalgia rheumatica) Pre-op evaluation Erectile dysfunction Carpal tunnel syndrome HTN (hypertension) GERD (gastroesophageal reflux disease) Lumbar spondylosis Other intervertebral disc degeneration, lumbar region Other chronic pain BPH with obstruction/lower urinary tract symptoms Nocturia History of elevated prostate specific antigen (PSA) Bilateral primary osteoarthritis of knee Surgical History (Updated 05/10/23 @ 17:33 by Jagdeep Aguillon, [facility]) History of total right knee replacement S/P ORIF (open reduction internal fixation) fracture Hx of colonoscopy Hx of esophagogastroduodenoscopy H/O prior ablation treatment History of prostate biopsy History of arthroscopy of both knees History of ear surgery Family History Father No problems noted. Mother No problems noted. Brother No problems noted. Brother No problems noted. Brother No problems noted. Son No problems noted. 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 Cognitive needs: No Hearing needs: No Vision needs: No Review of Systems Const All systems reviewed & are unremarkable except as noted in HPI and below Reports no additional complaints Resp Reports no additional complaints GI Reports no additional complaints Reports as per HPI Musc Reports no additional complaints Physical Exam Telemedicine evaluation Appropriate responses Regular breathing rate and rhythm HEENT Head: Yes normal to inspection Ears: hearing grossly normal bilaterally Eyes General: appearance normal, both eyes and all related structures Neck Neck: Yes normal visual inspection Chest Chest palpation & inspection: normal inspection of the chest Resp Effort & Inspection: normal respiratory effort and able to speak in complete sentences Telehealth Telehealth Location of provider rendering services: practice address Location of patient: address on file Patient Identification confirmed using: Name, : Yes Telehealth method: voice only Patient verbally consented to treatment: Yes Patient verbally consented to billing insurance company: Yes Patient informed of any privacy concerns related to visit: Yes Assessment & Plan Assessment & Plan (1) Weak urinary stream: Code(s): R39.12 - Poor urinary stream Category: Medical (2) Elevated PSA: Code(s): R97.20 - Elevated prostate specific antigen [PSA] Category: Medical (3) BPH w urinary obs/LUTS: Code(s): N40.1 - Benign prostatic hyperplasia with lower urinary tract symptoms; N13.8 - Other obstructive and reflux uropathy Category: Medical Plan Six-month follow-up PSA Continue finasteride Orders: Orders PSA,Total (Free>4and<10) 6 Months N13.8 - Other obstructive and reflux uropathy, N40.1 - Benign prostatic hyperplasia with lower urinary tract symptoms Medications: Refilled finasteride 5 mg PO DAILY 90 days 90 tabs 3RF N13.8 - Other obstructive and reflux uropathy, N40.1 - Benign prostatic hyperplasia with lower urinary tract symptoms Patient Instructions: Imaging studies, laboratory and physical exam results were discussed and reviewed in detail. No major barriers to patient understanding were identified. An opportunity to ask questions regarding the treatment plan was provided. All questions were answered. The patient expressed understanding and agreement with the above treatment plan. The patient is aware they should contact our office by phone for worsening of their current condition or the appearance of new urologic symptoms. Compliance is encouraged with any medications and followup testing that is ordered. It is a privilege to participate in the urologic care of your patient. If you have any questions or concerns regarding treatment for the above conditions, or other urologic issues, please do not hesitate to contact me. The office telephone contact is [phone]. This note is constructed using voice recognition software. While every effort has been made to ensure accuracy mushroom grower errors may have been included. Yours sincerely, Dr Thom Mayorga MD, [facility] - Urology Providers of Expert, Compassionate Care for the Genitourinary System Coding Level of Care Code Tele Est Pt Level 3 (16094) Diagnoses Weak urinary stream R39.12 Elevated PSA R97.20 BPH w urinary obs/LUTS N40.1; N13.8
== END 2024-02-22 09:55 | disposition home or self-care (01) ==
LOC: HO.HUSH 09:25
PROVIDERS: PCP Nurse Practitioner Family; Visit Provider Urology
DX: N40.1 Benign prostatic hyperplasia with lower urinary tract symptoms (principal); R39.12 Poor urinary stream; R97.20 Elevated prostate specific antigen [PSA]; N13.8 Other obstructive and reflux uropathy
CPT/HCPCS: 99442

== ENCOUNTER → 2024-02-22 09:25 | Outpatient (BNVA) | payer MEDICARE, SELFPAY | PROVIDERS: PCP Nurse Practitioner Family; Visit Provider Urology ==

== ENCOUNTER 2024-05-06 09:49 | Outpatient (AMB) | payer MEDICARE, SELFPAY ==
--- NOTE | 2024-05-06 10:25 | MHC.PC.OV ---
Vital Signs 05/06/24 10:27 Height 5 ft 8 in Weight 185 lb BMI 28.1 BP 120/80 Blood Pressure Location Rt brachial Position Sitting Pulse 74 Pulse Source Pulse Oximeter Pulse Oximetry (%) 98 Oxygen Delivery Method Room Air Intake Visit Reasons: follow up Intake Note: Patient here for med f/u. Allergies lisinopril Allergy (Unknown, Verified 05/06/24 10:42) cough penicillin G [PENICILLIN G] Allergy (Unknown, Verified 05/06/24 10:42) swelling penicillin V Allergy (Unknown, Verified 05/06/24 10:42) hand swelling, swelling Medication List - Last Reconciled 05/06/24 by DEANA Kelly-NGUYỄN finasteride 5 mg PO DAILY 90 days irbesartan 300 mg PO DAILY 90 days naproxen sodium 440 mg PO DAILY omeprazole 20 mg PO DAILY 90 days walker Folding front wheeled walker Tobacco use date assessed: 05/06/24 Fall risk assessment: No Falls in past year Last assessed Fall Risk: 05/06/24 Dental Screening Dental Screen Date: 05/06/24 Did you have a dental visit in the last 12 months?: No Did you have a dental problem in the last 6 months where you did not have access to dental care?: No Was dental information given to patient?: Patient has dentist HPI follow up HPI Details HTN: stable currently, takes BP at home, pt reports his BP has been great at home as well. Denies any SOB, DAVIS, CP, Blurred vision, or dizziness. PFSH Medical History Osteoarthritis Osteoarthritis of left knee TANIKA on CPAP PMR (polymyalgia rheumatica) Pre-op evaluation Erectile dysfunction Carpal tunnel syndrome HTN (hypertension) GERD (gastroesophageal reflux disease) Lumbar spondylosis Other intervertebral disc degeneration, lumbar region Other chronic pain BPH with obstruction/lower urinary tract symptoms Nocturia History of elevated prostate specific antigen (PSA) Bilateral primary osteoarthritis of knee Surgical History History of total right knee replacement S/P ORIF (open reduction internal fixation) fracture Hx of colonoscopy Hx of esophagogastroduodenoscopy H/O prior ablation treatment History of prostate biopsy History of arthroscopy of both knees History of ear surgery Family History Father No problems noted. Mother No problems noted. Brother No problems noted. Brother No problems noted. Brother No problems noted. Son No problems noted. 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 1. Little interest or pleasure in doing things: not at all 2. Feeling down, depressed, or hopeless: not at all 3. Trouble falling or staying asleep, or sleeping too much: not at all 4. Feeling tired or having little energy: not at all 5. Poor appetite or overeating: not at all 6. Feeling bad about yourself - or that you are a failure or have let yourself or your family down: not at all 7. Trouble concentrating on things, such as reading the newspaper or watching television: not at all 8. Moving or speaking so slowly that other people could have noticed. Or the opposite - being so fidgety or restless that you have been moving around a lot more than usual: not at all 9. Thoughts that you would be better off or of hurting yourself in some way: not at all Total score: 0 Depression Screening Interpretation: Negative Depression Screening Done: Yes 00257 - PHQ-9 Billing: Yes Source: Developed by Drs. Yomi Lai, Jeannie Beckman, Juan Antonio Barnard and colleagues, with an educational pradeep from [employer]. Thrive Questionnaire Date Thrive assessed: 04/29/24 I am a: Patient What is your living situation today?: I have a steady place to live Within the past 12 months, did the food you bought not last and you didn't have the money to get more?: Never true Within the past 12 months, did you worry whether your food would run out before you got money to buy more?: Never true Do you have trouble paying for medicines?: No Do you have trouble getting transportation to medical appointments?: No Do you have trouble paying your heating and electricity bill?: No Do you have trouble taking care of your child, family member or friend?: No Do you have trouble with day-to-day activities such as bathing, preparing meals, shopping, managing finances, etc.?: No Are you currently unemployed and looking for a job?: No Are you interested in more education?: No Please select the resources that you would like help with: Housing/Long-Term Currently or been in a relationship where the following occur: No concerns reported THRIVE Score: 0 AUDIT C Alcohol Use Questionnaire (AUDIT-C) 1. How often do you have a drink containing alcohol?: Never Total Score: 0 IGNACIA-7 AMB Questionnaire IGNACIA-7 Date IGNACIA - 7 assessed: 05/06/24 Feeling nervous, anxious, or on edge: 0 = Not at all Not being able to stop or control worryin = Not at all Worrying too much about different things: 0 = Not at all Trouble relaxin = Not at all Being so restless that it is hard to sit still: 0 = Not at all Becoming easily annoyed or irritable: 0 = Not at all Feeling afraid as if something awful might happen: 0 = Not at all Total IGNACIA-7 score (0-4 normal; 5-9 mild; 10-14 moderate; 15-21 severe): 0 Source: Developed by Drs. Yomi Lai, Jeannie Beckman, Juan Antonio Barnard and colleagues, with an educational pradeep from [employer]. IGNACIA-7 Assessment Billing IGNACIA-7 Assessment Tool: IGNACIA-7 Assessment 66728 Physical exam (Primary Care) Vital Signs: Last Vital Signs Pulse 74 05/06/24 10:27 BP 120/80 05/06/24 10:27 Pulse Ox 98 05/06/24 10:27 Oxygen Delivery Method Room Air 05/06/24 10:27 BMI result Body Mass Index 28.1 Tobacco/Smoking Status: Tobacco use Status Tobacco use date assessed 05/06/24 05/06/24 10:30 Patient Tobacco Use Status Never used Tobacco 05/06/24 10:27 e-Cigarette/Vaping Use Never Used 05/06/24 10:27 PHQ-9: PHQ-9 Score PHQ-9: Total score 0 05/06/24 10:30 Depression Screening Interpretation: Negative Thrive Assessment: Date of Thrive Assessment Date Thrive assessed 04/29/24 05/06/24 10:27 Currently or been in a relationship where the following occur: No concerns reported Resp Effort & Inspection: normal respiratory effort Auscultation: clear to auscultation bilaterally Cardio Rate: regular rate Rhythm: regular rhythm Heart sounds: S1 normal heart sound present and S2 normal heart sound present Extrem Right lower extremity: no edema Left lower extremity: no edema Psych Speech and movement: Normal speech and movement present Affect: normal affect Attitude: cooperative Thought process: Normal thought process present Thought content: Normal thought content present Insight: Good insight present (Psych) Judgement: Good judgement present (Psych) Assessment and Plan Assessment & Plan (1) HTN (hypertension): Code(s): I10 - Essential (primary) hypertension Plan: stable Orders: Orders Complete Blood Count Auto Diff Today I10 - Essential (primary) hypertension TSH reflex Free T4 Today I10 - Essential (primary) hypertension Comprehensive Donald. Panel Fast Today I10 - Essential (primary) hypertension UA CC w/rflx Micro + Cult Today I10 - Essential (primary) hypertension Lipid Panel Today I10 - Essential (primary) hypertension Medications: Refilled irbesartan 300 mg PO DAILY 90 tabs 1RF 90 days Coding Level of Care Code Est Pt Level 3 (64365) Diagnoses HTN (hypertension) I10 Additional Codes IGNACIA-7 Assessment Billing - IGNACIA-7 Assessment Tool: IGNACIA-7 Assessment 36442 ([id number])
[2024-05-06 10:27] VITALS: BP 120/80; PULSE 74; O2SAT 98; BMI 28.1
== END 2024-05-06 10:52 | disposition home or self-care (01) ==
PROVIDERS: PCP Nurse Practitioner Family; Visit Provider Nurse Practitioner Family
DX: I10 Essential (primary) hypertension (principal)
CPT/HCPCS: 99213

== ENCOUNTER 2024-05-06 10:54 | Outpatient (REF) | payer MEDICARE, SELFPAY ==
[2024-05-06 13:25] LABS: MANUAL DIFF FLAG NO
[2024-05-06 13:30] LABS: Appearance Urine Turbid; Color Urine Dark Yellow; Glucose Urine UA Negative (Negative); Leukocyte Esterase Urine Negative (Negative); Nitrite Urine Negative (Negative); PH 5.5 (5.0-9.0); Specific Gravity - Urine >= 1.030 (1.005-1.025); Urine Blood Negative (Negative); Urine Ketones Trace mg/dL (Negative); Urine Protein Trace mg/dL (Neg-Trace)
[2024-05-06 13:51] LABS: Basophils Percent Auto 0.4 % (0-2); Eosinophils Percent Auto 0.8 % (0-4); Hematocrit 47.8 % (42.0-52.0); Hemoglobin 15.6 g/dl (14.0-18.0); Imm Gran Abs Auto 0.01 X10*3/uL (0.00-0.03); Imm Gran Pct Auto 0.2 % (0.0-0.4); Lymphocytes Absolute Auto 0.8 X10*3/uL (1.2-4.9); Lymphocytes Percent Auto 16.6 % (20-40); Mean Corpuscular HGB Conc 32.6 g/dl (31.0-36.0); Mean Corpuscular Hemoglobin 27.5 pg (27.0-33.0); Mean Corpuscular Volume 84.2 fL (80.0-98.0); Mean Platelet Volume 11.3 fL (9.4-12.4); Monocytes Absolute Auto 0.4 X10*3/uL (0.1-1.2); Neutrophils Absolute Auto 3.6 x10*3/uL (2.0-8.3); Platelet Count 251 X10*3/uL (160-400); Red Blood Count 5.68 X10*6/uL (4.60-5.80); Red Cell Distribution Width 13.9 % (11.0-16.0); White Blood Count 4.9 X10*3/uL (4.8-10.8)
[2024-05-06 14:26] LABS: Alanine Aminotransferase 15 U/L (0-40); Albumin Level 4.1 g/dL (3.5-5.0); Alkaline Phosphatase 81 U/L (39-117); Anion Gap 12 (12-20); Aspartate Amino Transferase 19 U/L (5-37); Blood Urea Nitrogen 17 mg/dL (9-16); Calcium 9.2 mg/dL (8.4-10.2); Carbon Dioxide 23 mmol/L (22-29); Chloride 107 mmol/L (96-108); Cholesterol 174 mg/dL (<200); Estimated Glomerular Filt Rate > 60; Glucose Fasting 106 mg/dL (60-99); HDL Cholesterol 46 mg/dL (>40); LDL Cholesterol Calculated 117 mg/dL (<100); Potassium 4.7 mmol/L (3.3-5.1); Sodium 137 mmol/L (135-145); TSH reflex Free T4 1.56 uIU/mL (0.32-4.0); Total Protein 7.4 g/dL (6.5-8.0); Triglycerides 59 mg/dL (<150)
== END 2024-05-06 10:55 | disposition home or self-care (01) ==
LOC: HO.HMGCLDS 10:54
PROVIDERS: PCP Nurse Practitioner Family; Visit Provider Nurse Practitioner Family
DX: I10 Essential (primary) hypertension (principal)
CPT/HCPCS: 36415; 80053; 80061; 81003; 84443; 85025

== ENCOUNTER 2024-08-20 15:47 | Outpatient (REF) | payer MEDICARE, SELFPAY ==
[2024-08-20 18:10] LABS: PSA,Total (Free>4and<10) 6.65 ng/mL (0.00-4.00); Prostate Specific Antigen 6.93 ng/mL (<0.05-4.0)
[2024-08-21 10:43] LABS: Free Prostate Spec Ag 1.4 ng/mL; Percent Free Prostate Spec Ag 19 % (calc) (>25); Prostate Specific Ag Total 7.2 ng/mL (< OR = 4.0)
== END 2024-08-20 15:48 | disposition home or self-care (01) ==
LOC: HO.LAB 15:47
PROVIDERS: PCP Nurse Practitioner Family; Visit Provider Urology
DX: N40.1 Benign prostatic hyperplasia with lower urinary tract symptoms (principal); N13.8 Other obstructive and reflux uropathy; R97.20 Elevated prostate specific antigen [PSA]; Z12.5 Encounter for screening for malignant neoplasm of prostate
CPT/HCPCS: 36415; 84153; 84154

== ENCOUNTER 2024-08-23 11:12 | Outpatient (AMB) | payer MEDICARE, SELFPAY ==
--- NOTE | 2024-08-23 11:39 | A.OFFVIS_ITS ---
Intake Visit Reasons: 6M PSA(psa?) Intake Note: Patient is Present for Follow Up PSA Urology Medication: Finasteride Antibiotic Allergies: Penicillin Blood Thinners: None Recent PSA: 08/20/24 Total PSA: 6.65 Free PSA: 1.4 %Free PSA: 19% Sheep Farmer Required: No Accompanied by: Self / Same As Patient Allergies lisinopril Allergy (Unknown, Verified 08/23/24 11:41) cough penicillin G [PENICILLIN G] Allergy (Unknown, Verified 08/23/24 11:41) swelling penicillin V Allergy (Unknown, Verified 08/23/24 11:41) hand swelling, swelling HPI Comments Details: Mingo is a pleasant male. He is a patient Dr. Scott. He seen for the following urologic conditions - elevated PSA - erectile dysfunction - lower urinary tract symptoms PSA continues to rise accepted free is within normal range PSA - 03/01 5.7 18%, 09/01 6.9 19% Progressive symptoms from BPH Unable to urinate beyond 12 in Greater than 20 second voiding protcol Recommend GreenLight laser prostate Repeat MRI shows no areas of suspicion Elevated PSA/Abnormal JAMEL: Had seen blood in urine Recommend cystoscopy Cytology will be sent Prior smoking history. He presents for further evaluation of elevated PSA. Current management is 5AR 2 x prior biopsies since [address] Hector negative. Laboratory investigations include 09/25 PSA 4.6 F 11% 03/27 5.8 - PCPT 15% high risk, 09/26 5.7, 04/27 6.6, 10/29 8.3, 01/27 6.6, 05/31 7.9, 03/01 5.7 18% Imaging investigations include a prostate MRI Yes 03/27 MRI - PiRADS 2, 65 gm, no suspicious areas, 07/31 80 g prostate no suspicious areas Individualized Prostate Cancer Risk Calculator 5-10% high risk, Would like to continue with observation and understands and accepts the risks of a possible delay in diagnosis. A TRUS biopsy has been performed and is negative 2014 Overall symptoms are mild. Associated conditions erectile dysfunction Yes Therapeutic plan will be continued surveillance [facility] Medical History Osteoarthritis Osteoarthritis of left knee TANIKA on CPAP PMR (polymyalgia rheumatica) Pre-op evaluation Erectile dysfunction Carpal tunnel syndrome HTN (hypertension) GERD (gastroesophageal reflux disease) Lumbar spondylosis Other intervertebral disc degeneration, lumbar region Other chronic pain BPH with obstruction/lower urinary tract symptoms Nocturia History of elevated prostate specific antigen (PSA) Bilateral primary osteoarthritis of knee Surgical History History of total right knee replacement S/P ORIF (open reduction internal fixation) fracture Hx of colonoscopy Hx of esophagogastroduodenoscopy H/O prior ablation treatment History of prostate biopsy History of arthroscopy of both knees History of ear surgery Family History Father No problems noted. Mother No problems noted. Brother No problems noted. Brother No problems noted. Brother No problems noted. Son No problems noted. 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 Cognitive needs: No Hearing needs: No Vision needs: No Review of Systems Const Denies chills and Denies fever(s) Card Reports no additional complaints and Denies syncope Resp Denies cough GI Denies abdominal pain and Denies heartburn Reports as per HPI and Denies change in libido Neuro Denies syncope Psych Denies change in libido Endo Denies change in libido Physical Exam Const General: cooperative, healthy appearing, comfortable and no acute distress Orientation/consciousness: patient oriented x3 HEENT Face and sinus: Yes normal facial exam Mouth: moist mucous membranes Neck Neck: Yes normal visual inspection, Yes full ROM and Yes trachea midline Chest Chest palpation & inspection: normal inspection of the chest Resp Effort & Inspection: normal respiratory effort, able to speak in complete sentences and no respiratory distress GI Inspection: Yes normal to inspection Back/Spine/Pelvis Cervical Spine: normal cervical lordosis Thoracic/Lumbar Spine: thoracic and lumbar spine normal to inspection Skin General skin exam: no rashes or lesions noted Neuro General: patient oriented x3, gait normal, tone normal and moves all extremities Extrem General: Yes normal to inspection and Yes capillary refill normal Assessment & Plan Assessment & Plan (1) BPH w urinary obs/LUTS: Code(s): N40.1 - Benign prostatic hyperplasia with lower urinary tract symptoms; N13.8 - Other obstructive and reflux uropathy Category: Medical (2) Elevated PSA: Code(s): R97.20 - Elevated prostate specific antigen [PSA] Category: Medical (3) Weak urinary stream: Code(s): R39.12 - Poor urinary stream Category: Medical Plan We discussed the nature of the decision and reasonable options for performing a prostate intervention. Interventions include TURP, GreenLight laser enucleation of the prostate, GreenLight laser ablation of the prostate, transurethral incision of the prostate, and I-Tend prostate procedure. Options such as medical therapy were discussed. The relative uncertainties and benefits related to each alternate procedure were adequately discussed. General surgical risks including, but not limited to, pain, bleeding, infection, myocardial infarction, pulmonary embolus, deep vein thrombosis and cerebrovascular accident which may result in further hospitalization were discussed. Full disclosure of the procedure as well as all major risks, benefits and complications were discussed including but not limited to damage to the urethra or bladder neck, recurrent BPH, retrograde ejaculation, bladder infection, urge, de consuelo frequency, incomplete emptying, dysuria, remote chance of erectile dysfunction, epididymitis, and meatal stenosis. The success rate of the procedure was discussed. Success of the procedure in the short-term does not necessarily guarantee that long-term success will be maintained. Suitable follow up will need to be maintained. The patient showed understanding of discussion. An opportunity was provided for questions to be answered and wishes to proceed with the following procedure. - green light laser Orders: Orders Prostate Specific Antigen 08/20/24 R97.20 - Elevated prostate specific antigen [PSA] Patient Instructions: Imaging studies, laboratory and physical exam results were discussed and reviewed in detail. No major barriers to patient understanding were identified. An opportunity to ask questions regarding the treatment plan was provided. All questions were answered. The patient expressed understanding and agreement with the above treatment plan. The patient is aware they should contact our office by phone for worsening of their current condition or the appearance of new urologic symptoms. Compliance is encouraged with any medications and followup testing that is ordered. It is a privilege to participate in the urologic care of your patient. If you have any questions or concerns regarding treatment for the above conditions, or other urologic issues, please do not hesitate to contact me. The office telephone contact is [phone]. This note is constructed using voice recognition software. While every effort has been made to ensure accuracy employee relation manager errors may have been included. Yours sincerely, Dr Thom Mayorga MD, [facility] - Urology Providers of Expert, Compassionate Care for the Genitourinary System Coding Level of Care Code Est Pt Level 4 (43666) Diagnoses BPH w urinary obs/LUTS N40.1; N13.8 Elevated PSA R97.20 Weak urinary stream R39.12
== END 2024-08-23 12:36 | disposition home or self-care (01) ==
PROVIDERS: PCP Nurse Practitioner Family; Visit Provider Urology
DX: N40.1 Benign prostatic hyperplasia with lower urinary tract symptoms (principal); N13.8 Other obstructive and reflux uropathy; R97.20 Elevated prostate specific antigen [PSA]; R39.12 Poor urinary stream
CPT/HCPCS: 99214

== ENCOUNTER → 2024-08-23 11:12 | Outpatient (BNVA) | payer MEDICARE, SELFPAY | PROVIDERS: PCP Nurse Practitioner Family; Visit Provider Urology | DX: N40.1 Benign prostatic hyperplasia with lower urinary tract symptoms (principal); N13.8 Other obstructive and reflux uropathy; R97.20 Elevated prostate specific antigen [PSA]; R39.12 Poor urinary stream | CPT/HCPCS: 99212 ==

== ENCOUNTER 2024-11-05 10:05 | Outpatient (REF) | payer MEDICARE, SELFPAY ==
--- NOTE | ~2024-11-05 | XR_ITS ---
EXAMINATION: XR KNEE 1-2 VIEWS LEFT HISTORY: M25.562 - Pain in left knee COMPARISON: Comparison is made with the prior examination dated 11/03/2020. FINDINGS: AP and lateral views of the left knee are submitted. The patient is again noted to be status post left total knee arthroplasty. The orthopedic elements are in anatomic alignment. There is no radiographic evidence of loosening. There is no fracture or dislocation. There is no joint effusion. The soft tissues are unremarkable. XR/XR knee LT 2V IMPRESSION: Status post left total knee arthroplasty. Electronically signed by: Yomi Gupta MD 11/06/2024 02:12 PM PABLO
[2024-11-05 13:13] LABS: Appearance Urine Clear; Color Urine Yellow; Glucose Urine UA Negative (Negative); Leukocyte Esterase Urine Negative (Negative); Nitrite Urine Negative (Negative); Urine Blood Negative (Negative); Urine Ketones Negative (Negative); Urine Protein Negative (Neg-Trace)
[2024-11-05 13:29] LABS: MANUAL DIFF FLAG NO
[2024-11-05 13:36] LABS: Basophils Percent Auto 0.5 % (0-2); Eosinophils Absolute Auto 0.1 X10*3/uL (0.0-0.4); Eosinophils Percent Auto 1.3 % (0-4); Hematocrit 46.7 % (42.0-52.0); Hemoglobin 15.5 g/dl (14.0-18.0); Imm Gran Abs Auto 0.01 X10*3/uL (0.00-0.03); Imm Gran Pct Auto 0.3 % (0.0-0.4); Lymphocytes Absolute Auto 0.7 X10*3/uL (1.2-4.9); Lymphocytes Percent Auto 18.4 % (20-40); Mean Corpuscular HGB Conc 33.2 g/dl (31.0-36.0); Mean Corpuscular Hemoglobin 27.4 pg (27.0-33.0); Mean Corpuscular Volume 82.7 fL (80.0-98.0); Mean Platelet Volume 11.3 fL (9.4-12.4); Monocytes Absolute Auto 0.4 X10*3/uL (0.1-1.2); Monocytes Percent Auto 10.7 % (2-11); Neutrophils Absolute Auto 2.7 x10*3/uL (2.0-8.3); Neutrophils Percent Auto 68.8 % (45-73); Platelet Count 223 X10*3/uL (160-400); Red Blood Count 5.65 X10*6/uL (4.60-5.80); Red Cell Distribution Width 13.4 % (11.0-16.0); White Blood Count 3.9 X10*3/uL (4.8-10.8)
[2024-11-05 14:13] LABS: Alanine Aminotransferase 19 U/L (0-40); Albumin Level 4.1 g/dL (3.5-5.0); Alkaline Phosphatase 85 U/L (39-117); Anion Gap 10 (12-20); Aspartate Amino Transferase 22 U/L (5-37); Blood Urea Nitrogen 18 mg/dL (9-16); Calcium 8.4 mg/dL (8.4-10.2); Carbon Dioxide 25 mmol/L (22-29); Chloride 106 mmol/L (96-108); Cholesterol 185 mg/dL (<200); Estimated Glomerular Filt Rate > 60; Glucose Fasting 107 mg/dL (60-99); HDL Cholesterol 45 mg/dL (>40); LDL Cholesterol Calculated 126 mg/dL (<100); Potassium 4.4 mmol/L (3.3-5.1); Sodium 137 mmol/L (135-145); Total Protein 7.7 g/dL (6.5-8.0); Triglycerides 72 mg/dL (<150)
[2024-11-05 14:32] LABS: TSH reflex Free T4 2.62 uIU/mL (0.32-4.0)
== END 2024-11-05 10:06 | disposition home or self-care (01) ==
LOC: HO.HMGCX 10:05
PROVIDERS: PCP Nurse Practitioner Family; Visit Provider Nurse Practitioner Family
DX: I10 Essential (primary) hypertension (principal); M25.562 Pain in left knee; L98.9 Disorder of the skin and subcutaneous tissue, unspecified
CPT/HCPCS: 36415; 73560; 80053; 80061; 81003; 84443; 85025; 96127; 99212

== ENCOUNTER 2024-11-05 10:05 | Outpatient (AMB) | payer MEDICARE, SELFPAY ==
--- NOTE | 2024-11-05 10:07 | A.OFFPC_ITS ---
Vital Signs 11/05/24 10:08 Height 5 ft 8 in Weight 199 lb BMI 30.3 BP 138/84 Blood Pressure Location Lt brachial Position Sitting Pulse 81 Pulse Source Pulse Oximeter Temp 97.8 F Temp Source Oral Pulse Oximetry (%) 94 Intake Visit Reasons: 6 month f/u Intake Note: pt is here for 6 mon f/up Front Office Supervisor Required: No Accompanied by: Self / Same As Patient Allergies lisinopril Allergy (Unknown, Verified 11/05/24 10:08) cough penicillin G [PENICILLIN G] Allergy (Unknown, Verified 11/05/24 10:08) swelling penicillin V Allergy (Unknown, Verified 11/05/24 10:08) hand swelling, swelling Medication List - Last Reconciled 11/05/24 [facility] finasteride 5 mg PO DAILY 90 days irbesartan 300 mg PO DAILY 90 days naproxen sodium 440 mg PO DAILY omeprazole 20 mg PO DAILY 90 days walker Folding front wheeled walker Tobacco use date assessed: 11/05/24 Fall risk assessment: No Falls in past year Last assessed Fall Risk: 11/05/24 Dental Screening Dental Screen Date: 11/05/24 Did you have a dental visit in the last 12 months?: Yes Did you have a dental problem in the last 6 months where you did not have access to dental care?: No Was dental information given to patient?: Patient has dentist HPI 6 month f/u HPI Details Chief Complaint The patient presents with a stable hypertension follow-up and concerns about a lesion on the right eyebrow and increased pain in the left knee. History of Present Illness The patient is a 68-year-old male presenting with a follow-up for essential hypertension, which is reported as stable. The patient denies experiencing any chest pain, shortness of breath, headaches, blurred vision, or dizziness. Additionally, the patient has developed a self-reported lesion on the right eyebrow, characterized by a scab which he has been picking at, but there is no specific known cause for the lesion. The patient's dermatological history requires attention due to his fair skin and baldness, necessitating a dermatolog y referral for further assessment of the right eyebrow lesion. The patient also reports left knee pain localized to the lateral aspect, following a total knee replacement performed in October 2020. The pain has increased, and the patient requests a consultation with Dr. Mancuso for further management. An x-ray is indicated for further evaluation. The patient?s cardiac examination reveals normal heart sounds, specifically S1 and S2, and the pulmonary system shows clear lungs without signs of edema. Social History Health Maintenance - Bloodwork due for regular screening Review of Systems - Dermatological: Reports a scab lesion on the right eyebrow. - Musculoskeletal: Reports increased merary n in the left knee. - Cardiovascular: Denies chest pain. - Respiratory: Denies shortness of breat h. - Neurological: Denies headache, dizzine ss, or blurred vision. Physical Exam General: Cooperative, healthy appearing, comfortable, no acute distress and well developed Orientation: Patient oriented x3 Limitations: No limitations Head: Normal to inspection Ears: Hearing grossly normal bilaterally Nose: Normal external nose present Face and sinus: Normal facial exam Eyes: Appearance normal, both eyes and all related structures Neck: Normal visual inspection and Yes full ROM Respiratory: Normal respiratory effort and able to speak in complete sentences. Clear to auscultation bilaterally Cardiovascular: Regular rate and rhythm. Normal S1 and S2 GI: Normal to inspection. Soft to palpation and nontender Skin: Scab lesion noted on right eyebrow region Neuro: Patient oriented x3 Extremities: Normal to inspection except for left knee pain, pointing to the lateral aspect. no active swelling. flex and extension with minimal lateral discomfort. Results Plan - I will refer the patient to dermatolog y for evaluation of the right eyebrow lesion due to his fair skin and baldness. - I will place a referral to Dr. Brother gonzales as requested by the patient for the left knee pain. - I will order an x-ray for the patient' s left knee to assess for any abnormalities. - Due to his age and regular screening r equirements, I will order routine bloodwork. Patient was informed and verbally consented to the use of an ambient scribe for clinic note documentation during this visit. Discussion Notes I discussed with the patient the stable nature of his hypertension and the importance of continuing his current management plan. We addressed the scab lesion on his right eyebrow, recognizing the need for a dermatology consultation given his fair skin and bald condition; the patient understands the referral. We also discussed the increased pain in his left knee since his total knee replacement in October 2020, and the patient expressed the desire to consult Dr. Mancuso, which I agreed upon. An x-ray was advised and understood by the patient to evaluate the cause of his left knee pain. The patient was informed of the need for routine bloodwork as part of his health maintenance. All details were reviewed with the patient, who agreed to the proposed plans. Patient Instructions - Please follow up with dermatology as marysol clement for the evaluation of the eyebrow lesion. - Proceed with x-ray examination of the left knee at your earliest convenience. - Schedule an appointment with Dr. Chelsea avila regarding left knee pain management. - Continue with prescribed hypertension medication and monitor blood pressure regularly. - Return for routine bloodwork as instru cted. [facility] Medical History Osteoarthritis Osteoarthritis of left knee TANIKA on CPAP PMR (polymyalgia rheumatica) Pre-op evaluation Erectile dysfunction Carpal tunnel syndrome HTN (hypertension) GERD (gastroesophageal reflux disease) Lumbar spondylosis Other intervertebral disc degeneration, lumbar region Other chronic pain BPH with obstruction/lower urinary tract symptoms Nocturia History of elevated prostate specific antigen (PSA) Bilateral primary osteoarthritis of knee Surgical History History of total right knee replacement S/P ORIF (open reduction internal fixation) fracture Hx of colonoscopy Hx of esophagogastroduodenoscopy H/O prior ablation treatment History of prostate biopsy History of arthroscopy of both knees History of ear surgery Family History Father No problems noted. Mother No problems noted. Brother No problems noted. Brother No problems noted. Brother No problems noted. Son No problems noted. 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 1. Little interest or pleasure in doing things: not at all 2. Feeling down, depressed, or hopeless: not at all 3. Trouble falling or staying asleep, or sleeping too much: not at all 4. Feeling tired or having little energy: not at all 5. Poor appetite or overeating: not at all 6. Feeling bad about yourself - or that you are a failure or have let yourself or your family down: not at all 7. Trouble concentrating on things, such as reading the newspaper or watching television: not at all 8. Moving or speaking so slowly that other people could have noticed. Or the opposite - being so fidgety or restless that you have been moving around a lot more than usual: not at all 9. Thoughts that you would be better off or of hurting yourself in some way: not at all Total score: 0 Depression Screening Interpretation: Negative Depression Screening Done: Yes 30215 - PHQ-9 Billing: Yes Source: Developed by Drs. Yomi Lai, Jeannie Beckman, Juan Antonio Barnard and colleagues, with an educational pradeep from [employer]. Thrive Questionnaire Date Thrive assessed: 11/05/24 I am a: Patient What is your living situation today?: I have a steady place to live Within the past 12 months, did the food you bought not last and you didn't have the money to get more?: Never true Within the past 12 months, did you worry whether your food would run out before you got money to buy more?: I choose not to answer this question Do you have trouble paying for medicines?: No Do you have trouble getting transportation to medical appointments?: No Do you have trouble paying your heating and electricity bill?: I choose not to answer this question Do you have trouble taking care of your child, family member or friend?: I choose not to answer this question Do you have trouble with day-to-day activities such as bathing, preparing meals, shopping, managing finances, etc.?: No Are you currently unemployed and looking for a job?: No Are you interested in more education?: No Please select the resources that you would like help with: None Currently or been in a relationship where the following occur: No concerns reported THRIVE Score: 0 AUDIT C Alcohol Use Questionnaire (AUDIT-C) 1. How often do you have a drink containing alcohol?: Monthly or less 2. How many drinks containing alcohol do you have on a typical day when you are drinking?: 1 or 2 3. How often do you have six or more drinks on one occasion?: Never Total Score: 1 Score Reviewed/Action Taken: Yes IGNACIA-7 AMB Questionnaire IGNACIA-7 Date IGNACIA - 7 assessed: 11/05/24 Feeling nervous, anxious, or on edge: 0 = Not at all Not being able to stop or control worryin = Not at all Worrying too much about different things: 0 = Not at all Trouble relaxin = Not at all Being so restless that it is hard to sit still: 0 = Not at all Becoming easily annoyed or irritable: 0 = Not at all Feeling afraid as if something awful might happen: 0 = Not at all Total IGNACIA-7 score (0-4 normal; 5-9 mild; 10-14 moderate; 15-21 severe): 0 Source: Developed by Drs. Yomi Lai, Jeannie Beckman, Juan Antonio Barnard and colleagues, with an educational pradeep from [employer]. IGNACIA-7 Assessment Billing IGNACIA-7 Assessment Tool: IGNACIA-7 Assessment 10032 Physical exam (Primary Care) Vital Signs: Last Vital Signs Temp 97.8 F 11/05/24 10:08 Pulse 81 11/05/24 10:08 BP 138/84 11/05/24 10:08 Pulse Ox 94 11/05/24 10:08 BMI result Body Mass Index 30.3 Tobacco/Smoking Status: Tobacco use Status Tobacco use date assessed 11/05/24 11/05/24 10:09 Patient Tobacco Use Status Never used Tobacco 11/05/24 10:09 e-Cigarette/Vaping Use Never Used 11/05/24 10:09 PHQ-9: PHQ-9 Score PHQ-9: Total score 0 11/05/24 10:19 Depression Screening Interpretation: Negative Thrive Assessment: Date of Thrive Assessment Date Thrive assessed 11/05/24 11/05/24 10:09 Currently or been in a relationship where the following occur: No concerns reported Coding Level of Care Code Est Pt Level 3 (88380) Diagnoses Skin lesion L98.9 Left knee pain M25.562 HTN (hypertension) I10 Additional Codes IGNACIA-7 Assessment Billing - IGNACIA-7 Assessment Tool: IGNACIA-7 Assessment 91445 ([id number]) PHQ-9 - 49215 - PHQ-9 Billing: Yes ([id number]) Assessment & Plan Assessment & Plan (1) Skin lesion: Code(s): L98.9 - Disorder of the skin and subcutaneous tissue, unspecified Category: Medical (2) Left knee pain: Comment: LT2020 Code(s): M25.562 - Pain in left knee Category: Medical (3) HTN (hypertension): Code(s): I10 - Essential (primary) hypertension Category: Medical Plan . Orders: Orders UA CC w/rflx Micro + Cult Today I10 - Essential (primary) hypertension Lipid Panel Today I10 - Essential (primary) hypertension XR knee LT 2V Today M25.562 - Pain in left knee Complete Blood Count Auto Diff Today I10 - Essential (primary) hypertension Comprehensive [place]. Panel Fast Today I10 - Essential (primary) hypertension TSH reflex Free T4 Today I10 - Essential (primary) hypertension Referrals Dermatology Referral L98.9 - Disorder of the skin and subcutaneous tissue, unspecified Orthopedics Referral M25.562 - Pain in left knee
[2024-11-05 10:08] VITALS: BP 138/84; PULSE 81; TEMP 36.6; O2SAT 94; BMI 30.3
== END 2024-11-05 10:48 | disposition home or self-care (01) ==
PROVIDERS: PCP Nurse Practitioner Family; Visit Provider Nurse Practitioner Family
DX: L98.9 Disorder of the skin and subcutaneous tissue, unspecified (principal); M25.562 Pain in left knee; I10 Essential (primary) hypertension

== ENCOUNTER → 2024-11-05 11:03 | Outpatient (BNV) | payer MEDICARE, SELFPAY | PROVIDERS: PCP Nurse Practitioner Family; Visit Provider Radiology Diagnostic Radiology | DX: M25.562 Pain in left knee (principal) | CPT/HCPCS: 73560 ==

== ENCOUNTER 2024-11-28 11:15 | Outpatient (AMB) | payer MEDICARE, SELFPAY ==
--- NOTE | 2024-11-28 11:16 | MHC.OFFVIS ---
Intake Visit Reasons: Questions on Greenlight Procedure Intake Note: Patient is present for QUESTIONS ON GREENLIGHT PROCEDURES Urology Medication:FINASTERIDE Antibiotic Allergy:PENICILLINS Blood Thinner:NONE Document Photographer Required: No Allergies lisinopril Allergy (Unknown, Verified 11/28/24 11:18) cough penicillin G [PENICILLIN G] Allergy (Unknown, Verified 11/28/24 11:18) swelling penicillin V Allergy (Unknown, Verified 11/28/24 11:18) hand swelling, swelling HPI Comments Details: Mingo is a pleasant male. He is a patient Dr. Scott. He seen for the following urologic conditions - elevated PSA - erectile dysfunction - lower urinary tract symptoms Telemedicine Evaluation 15 min Consultation [employer] [place] [facility] Discussed GreenLight laser Questions answered No change in health status currently PSA continues to rise accepted free is within normal range PSA - 03/01 5.7 18%, 09/01 6.9 19% Progressive symptoms from BPH Unable to urinate beyond 12 in Greater than 20 second voiding protcol Recommend GreenLight laser prostate Repeat MRI shows no areas of suspicion Elevated PSA/Abnormal JAMEL: Had seen blood in urine Recommend cystoscopy Cytology will be sent Prior smoking history. He presents for further evaluation of elevated PSA. Current management is 5AR 2 x prior biopsies since [address] Hector negative. Laboratory investigations include 09/25 PSA 4.6 F 11% 03/27 5.8 - PCPT 15% high risk, 09/26 5.7, 04/27 6.6, 10/29 8.3, 01/27 6.6, 05/31 7.9, 03/01 5.7 18% Imaging investigations include a prostate MRI Yes 03/27 MRI - PiRADS 2, 65 gm, no suspicious areas, 07/31 80 g prostate no suspicious areas Individualized Prostate Cancer Risk Calculator 5-10% high risk, Would like to continue with observation and understands and accepts the risks of a possible delay in diagnosis. A TRUS biopsy has been performed and is negative 2014 Overall symptoms are mild. Associated conditions erectile dysfunction Yes Therapeutic plan will be continued surveillance [facility] Medical History Osteoarthritis Osteoarthritis of left knee TANIKA on CPAP PMR (polymyalgia rheumatica) Pre-op evaluation Erectile dysfunction Carpal tunnel syndrome HTN (hypertension) GERD (gastroesophageal reflux disease) Lumbar spondylosis Other intervertebral disc degeneration, lumbar region Other chronic pain BPH with obstruction/lower urinary tract symptoms Nocturia History of elevated prostate specific antigen (PSA) Bilateral primary osteoarthritis of knee Surgical History History of total right knee replacement S/P ORIF (open reduction internal fixation) fracture Hx of colonoscopy Hx of esophagogastroduodenoscopy H/O prior ablation treatment History of prostate biopsy History of arthroscopy of both knees History of ear surgery Family History Father No problems noted. Mother No problems noted. Brother No problems noted. Brother No problems noted. Brother No problems noted. Son No problems noted. 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 Cognitive needs: No Hearing needs: No Vision needs: No Review of Systems Const All systems reviewed & are unremarkable except as noted in HPI and below Reports no additional complaints Resp Reports no additional complaints GI Reports no additional complaints Reports as per HPI Musc Reports no additional complaints Physical Exam Telemedicine evaluation Appropriate responses Regular breathing rate and rhythm HEENT Head: Yes normal to inspection Ears: hearing grossly normal bilaterally Eyes General: appearance normal, both eyes and all related structures Neck Neck: Yes normal visual inspection Chest Chest palpation & inspection: normal inspection of the chest Resp Effort & Inspection: normal respiratory effort and able to speak in complete sentences Telehealth Telehealth Location of provider rendering services: practice address Location of patient: address on file Patient Identification confirmed using: Name, : Yes Telehealth method: voice only Patient verbally consented to treatment: Yes Patient verbally consented to billing insurance company: Yes Patient informed of any privacy concerns related to visit: Yes Assessment & Plan Assessment & Plan (1) Erectile dysfunction: Code(s): N52.9 - Male erectile dysfunction, unspecified Category: Medical (2) BPH w urinary obs/LUTS: Code(s): N40.1 - Benign prostatic hyperplasia with lower urinary tract symptoms; N13.8 - Other obstructive and reflux uropathy Category: Medical (3) Weak urinary stream: Code(s): R39.12 - Poor urinary stream Category: Medical Plan Upcoming GreenLight laser prostatectomy surgery Risks, benefits and alternatives to therapy were discussed. These include but are not limited to infection, bleeding, damage to local organs and tissues, need for further interventions. Anesthetic risks regarding cardiac arrhythmia, blood clots, and potential mortality were discussed. The patient understands the typical recovery time and the outpatient nature of the procedure. After consideration of these risks the patient gives full informed consent and they wish to move ahead with the procedure. Patient Instructions: This note is constructed using voice recognition software. While every effort has been made to ensure accuracy business administration professor errors may have been included. Imaging studies, laboratory and physical exam results were discussed and reviewed in detail. No major barriers to patient understanding were identified. An opportunity to ask questions regarding the treatment plan was provided. All questions were answered. The patient expressed understanding and agreement with the above treatment plan. The patient is aware they should contact our office by phone for worsening of their current condition or the appearance of new urologic symptoms. Compliance is encouraged with any medications and followup testing that is ordered. It is a privilege to participate in the urologic care of your patient. If you have any questions or concerns regarding treatment for the above conditions, or other urologic issues, please do not hesitate to contact me. The office telephone contact is [phone]. Sincerely, Dr Thom Mayorga MD, [facility] - Urology Compassionate Specialist Care for the Genitourinary System Coding Level of Care Code Tele Est Pt Level 3 (24410) Diagnoses Erectile dysfunction N52.9 BPH w urinary obs/LUTS N40.1; N13.8 Weak urinary stream R39.12
== END 2024-11-28 11:51 | disposition home or self-care (01) ==
LOC: HO.HUSH 11:15
PROVIDERS: PCP Nurse Practitioner Family; Visit Provider Urology
DX: N52.9 Male erectile dysfunction, unspecified (principal); N40.1 Benign prostatic hyperplasia with lower urinary tract symptoms; N13.8 Other obstructive and reflux uropathy; R39.12 Poor urinary stream
CPT/HCPCS: 99213

== ENCOUNTER → 2024-11-28 11:15 | Outpatient (BNVA) | payer MEDICARE, SELFPAY | PROVIDERS: PCP Nurse Practitioner Family; Visit Provider Urology ==

== ENCOUNTER 2024-12-09 09:20 | Day surgery (SDC) | payer MEDICARE, SELFPAY ==
[2024-12-05 13:30] VITALS: BMI 30.3
--- NOTE | 2024-12-05 14:46 | P.CONAN_ITS ---
Documented by User: Liliana Hopsno NP 12/05/24 14:47 HPI - Anesthesia Eval Consult details Narrative: 68yo M for Laser Ablation Prostate w/Green Light PMFSH Active Problems Active Problems: All Active Problems Leukopenia (Acute) Left knee pain (Acute) Skin lesion (Acute) Weak urinary stream (Acute) Right knee pain (Acute) Physical exam (Acute) Carpal tunnel syndrome of right wrist (Acute) Carpal tunnel syndrome of left wrist (Acute) Elevated PSA (Acute) Status post total left knee replacement (Acute) BPH w urinary obs/LUTS (Acute) Gross hematuria (Acute) HTN (hypertension) (Acute) History of elevated prostate specific antigen (PSA) (Acute) Erectile dysfunction (Acute) Pre-op evaluation (Acute) Past Medical History Medical History (Updated 12/05/24 @ 13:32 by Joana Jurado RN) Osteoarthritis of left knee TANIKA on CPAP PMR (polymyalgia rheumatica) Pre-op evaluation Erectile dysfunction Carpal tunnel syndrome HTN (hypertension) GERD (gastroesophageal reflux disease) Lumbar spondylosis Other intervertebral disc degeneration, lumbar region Other chronic pain BPH with obstruction/lower urinary tract symptoms Nocturia History of elevated prostate specific antigen (PSA) Bilateral primary osteoarthritis of knee Family History Family History Father No problems noted. Mother No problems noted. Brother No problems noted. Brother No problems noted. Brother No problems noted. Son No problems noted. Family history of problems with anesthesia: No Surgical History Surgical History (Updated 12/05/24 @ 13:27 by Joana Jurado RN) History of carpal tunnel release History of total right knee replacement S/P ORIF (open reduction internal fixation) fracture Hx of colonoscopy Hx of esophagogastroduodenoscopy H/O prior ablation treatment History of prostate biopsy History of arthroscopy of both knees History of ear surgery History of Problems with Anesthesia: No Social History Social History Housing: House Are you a primary intensive care anaesthetist to a significant other at home: No Do you presently have visiting nurse or other home services: No Comment: pt sleeping Patient Tobacco Use Status: Never used Tobacco e-Cigarette/Vaping Use: Never Used Second Hand Smoke Exposure: No Have you been hit, kicked, punched, or otherwise hurt by someone within the past year? 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 Cognitive needs: No Hearing needs: No Vision needs: No Meds Allergies Allergy/AdvReac Type Severity Reaction Status Date / Time Penicillins Allergy Intermediate Swelling Verified 12/05/24 13:31 lisinopril AdvReac Intermediate cough Verified 12/05/24 13:31 Home Medications ?Medication ?Instructions ?Recorded ?Confirmed ?Last Taken ?Type naproxen sodium 220 mg tablet 440 mg PO DAILY 05/23/23 12/05/24 Unknown History Exam Height,Weight and Vital Signs: Height 5 ft 8 in Weight 90.265 kg Pertinent Lab Results Pertinent Lab Results: Laboratory Tests 11/05/24 10:40 WBC 3.9 L Hgb 15.5 Hct 46.7 Plt Count 223 Sodium 137 Potassium 4.4 Chloride 106 Carbon Dioxide 25 BUN 18 H Creatinine 1.05 Assessment and Plan Assessment Anesthesia Assessment: Chart Reviewed Final Anesthetic Review Family History of Problems with Anesthesia: No History of Problems with Anesthesia: No Documented by User: Dalton Luu MD 12/09/24 10:59 [facility] Past Medical History Medical History (Updated 12/05/24 @ 13:32 by Joana Jurado RN) Osteoarthritis of left knee TANIKA on CPAP PMR (polymyalgia rheumatica) Pre-op evaluation Erectile dysfunction Carpal tunnel syndrome HTN (hypertension) GERD (gastroesophageal reflux disease) Lumbar spondylosis Other intervertebral disc degeneration, lumbar region Other chronic pain BPH with obstruction/lower urinary tract symptoms Nocturia History of elevated prostate specific antigen (PSA) Bilateral primary osteoarthritis of knee Family History Family History Father No problems noted. Mother No problems noted. Brother No problems noted. Brother No problems noted. Brother No problems noted. Son No problems noted. Surgical History Surgical History (Updated 12/05/24 @ 13:27 by Joana Jurado RN) History of carpal tunnel release History of total right knee replacement S/P ORIF (open reduction internal fixation) fracture Hx of colonoscopy Hx of esophagogastroduodenoscopy H/O prior ablation treatment History of prostate biopsy History of arthroscopy of both knees History of ear surgery Social History Social History (Reviewed 11/05/24 @ 10:32 by Jagdeep Aguillon, [facility]) Housing: House Are you a primary intensive care anaesthetist to a significant other at home: No Do you presently have visiting nurse or other home services: No Comment: pt sleeping Patient Tobacco Use Status: Never used Tobacco e-Cigarette/Vaping Use: Never Used Second Hand Smoke Exposure: No Have you been hit, kicked, punched, or otherwise hurt by someone within the past year? 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 Cognitive needs: No Hearing needs: No Vision needs: No Meds Allergies Allergy/AdvReac Type Severity Reaction Status Date / Time Penicillins Allergy Intermediate Swelling Verified 12/05/24 13:31 lisinopril AdvReac Intermediate cough Verified 12/05/24 13:31 Home Medications ?Medication ?Instructions ?Recorded ?Confirmed ?Last Taken ?Type naproxen sodium 220 mg tablet 440 mg PO DAILY 05/23/23 12/05/24 Unknown History Exam Airway Mallampati Class: I TM Dist: <=3cm Neck ROM: Full Loose/Missing/Broken Teeth: No Heart: ok Lungs: ok Assessment and Plan Assessment Anesthesia Assessment: Anesthesia Plan Discussed Final Anesthetic Review NPO: Yes ASA Class: III Final Preanesthetic Review: No Changes in Pt Med Stat, Meds/Allgs Chart Reviewed, Consent Obtained/Reviewed and Anes Risks/Benef Reviewed Patient Risk: Intermediate Procedure Risk: Low Anesthetic Plan Anesthetic Plan: GA and Agree w/ Assess. and Plan Disposition: Standard PACU
[2024-12-09] MEDS: Lactated Ringers 1,000 ML 100 ML IVCONT (09:47)
--- NOTE | 2024-12-09 10:04 | MHC.SHP ---
Pre-Procedural Eval Section A - 24 Hr Update-Section A only Date of Service: 12/09/24 The patient is an INPATIENT: No Changes since office visit: No Cold of Flu in the past 2 weeks, No New Medical Problems, No Changes in Medication and No Patient answered all questions The patient has been examined within 24 hours of the surgical procedure. The History & Physical has been completed within 30 days and I have reviewed it.: Yes Section B - Complete if H&P > 30 days Chief Complaint: Benign prostatic hyperplasia with lower urinary Allergies: Allergies Allergy/AdvReac Type Severity Reaction Status Date / Time Penicillins Allergy Intermediate Swelling Verified 12/05/24 13:31 lisinopril AdvReac Intermediate cough Verified 12/05/24 13:31 Plan Diagnosis/Plan: Unchanged (greenlight laser) I have reviewed the history and physical and performed a pertinent physical examination on my patient. No changes have occurred unless specified. Time Spent With Patient Time: Total time managing care of this patient today ____ minutes.
[2024-12-09] MEDS: ceFAZolin Sodium/Dextrose,Iso 2 GM/50 ML PIGGYBACK IV (10:17)
--- NOTE | 2024-12-09 11:13 | W.PM.OPN ---
Operative Note Operative Note Date of Service: 12/09/24 Narrative: PreOperative Diagnosis: Bladder outlet obstruction Post Operative Diagnosis: Bladder outlet obstruction Procedure: GreenLight Laser Enucleation of the prostate CPT 36109 Surgeon: Dr Thom Mayorga Anesthesia: General History of bladder outlet obstruction. Treated with alpha-miguel angel and other medications. Still with symptoms. On cystoscopy in office has trilobar prostate. Recommendation for prostate procedure with laser enucleation of prostate. Risks and benefits have been discussed. Focus was placed on development of retrograde ejaculation which is a normal part of this procedure. Procedure: After informed consent was verified the patient was brought to the operating room and placed in a supine position. Anesthesia was administered per protocol. Patient was placed in modified dorsal lithotomy position and prepped and draped in a sterile fashion. Safety pause time-out was confirmed. Antibiotics have been given. A Twenty-four Filipino laser cystoscope was inserted per urethra. No abnormalities were found of the anterior and bulbar urethra. The prostatic urethra shows trilobar hypertrophy.. The bladder was examined and both ureteric orifices were seen in their normal positions away from the area of interest. Bladder trabeculation Grade 1/2 Using a GreenLight laser with initial settings of 80 harvey incisions were made at the 5 and 7 o'clock position. The incisions were taken down from the bladder neck down to the area just proximal of the veru. These were gradually deepened in order to define the lateral aspects of the median lobe area. The deep boundary of enucleation was defined by the prostate surgical capsule. Once clearly defined the grooves were extended in the lateral directions in order to create a deep groove. The median lobe was then ablated and enucleated tissue released into the bladder with the laser power increased to 120 W. Moderate median lobe. Once the median lobe area had been cleared, attention was directed to the lateral lobes. Starting with the patient's left lateral lobe. First the 05:00 o'clock groove was further developed. This was moved in the lateral direction to undermine the tissue on the lateral side running from the bladder neck to the prostate apex. The ureteric orifice was used to guide incisions. The laser fiber was placed at the 1 o'clock position and a secondary groove was developed down to the level of prostatic capsule. The creation of a second deep groove defined a segment of intervening tissue similar to a slice of orange. At the apex of the prostate the laser was used to vertically link the two grooves releasing the intervening tissue and creating a segment of tissue. This tissue was then removed with a combination of enucleation and ablation working from the apex toward the bladder neck. A similar procedure was repeated on the patient's right-hand side. The only differences being the position of the lateral groove at the 7 o'clock position and the secondary groove at the 11 o'clock position, Otherwise the procedure was developed in a mirror fashion. After the majority of tissue had been debulked remnant tissue was ablated with the side fire laser and the curve of the prostate followed up each side wall clearly defining the anterior remnant strip that remained between the 11 and 1 o'clock positions. At completion debris and pieces of prostate were removed from the bladder with irrigation. Both ureteric orifices were reviewed again in shown to be patent in away from any areas of energy damage. The apical area was reviewed and any stray mucosal ooze was controlled. A 22 Filipino 30 cc balloon Merchant catheter was placed into the bladder using a flexible stylet. Clear efflux was obtained upon irrigation with a Mary piston syringe. 50 cc was placed in the balloon and gentle traction was placed. A snap was used to hold tension on the catheter to control bleeding during patient moved and transported. A drainage bag was placed. Once transportation is complete to the PACU the snap will be removed. The patient tolerated the procedure well, he was extubated in the operating and transferred in a stable condition to the recovery area. Total Power 122 kW Lasing time 18:20 Pathology: Prostate tissue Drains: Merchant catheter
[2024-12-09 11:28] VITALS: BP 113/62; PULSE 63; RESP 17; TEMP 36.1; O2SAT 92
[2024-12-09 11:33] VITALS: BP 108/68; PULSE 66; RESP 15; O2SAT 90
[2024-12-09 11:38] VITALS: BP 114/68; PULSE 72; RESP 16; O2SAT 96
[2024-12-09 11:43] VITALS: BP 122/67; PULSE 75; RESP 16; O2SAT 97
[2024-12-09 11:58] VITALS: BP 126/64; PULSE 61; RESP 17; TEMP 36.3; O2SAT 98
[2024-12-09 12:13] VITALS: BP 133/67; PULSE 63; RESP 18; O2SAT 98
== END 2024-12-09 12:52 | disposition home or self-care (01) ==
PROVIDERS: PCP Nurse Practitioner Family; Visit Provider Urology
PROC: (CPT 52648; principal; 2024-12-09 11:20)
DX: N40.1 Benign prostatic hyperplasia with lower urinary tract symptoms (principal); N13.8 Other obstructive and reflux uropathy; R35.1 Nocturia; R39.12 Poor urinary stream; N52.9 Male erectile dysfunction, unspecified; I10 Essential (primary) hypertension; G89.29 Other chronic pain; M35.3 Polymyalgia rheumatica; G47.33 Obstructive sleep apnea (adult) (pediatric); Z79.899 Other long term (current) drug therapy; Z99.89 Dependence on other enabling machines and devices; Z88.0 Allergy status to penicillin; Z88.8 Allergy status to other drugs, medicaments and biological substances; Z98.890 Other specified postprocedural states
CPT/HCPCS: 52649; 88305; J0690; J2003; J2704; J3010

== ENCOUNTER → 2024-12-09 09:20 | Outpatient (BNV) | payer MEDICARE, SELFPAY | PROVIDERS: PCP Nurse Practitioner Family; Visit Provider Urology | DX: N40.1 Benign prostatic hyperplasia with lower urinary tract symptoms (principal); N32.0 Bladder-neck obstruction | CPT/HCPCS: 52649 ==

== ENCOUNTER → 2024-12-11 09:28 | Outpatient (BNVA) | payer MEDICARE, SELFPAY | PROVIDERS: PCP Nurse Practitioner Family; Visit Provider Urology | DX: N40.1 Benign prostatic hyperplasia with lower urinary tract symptoms (principal); N31.8 Other neuromuscular dysfunction of bladder | CPT/HCPCS: 51700; 51798 ==

== ENCOUNTER 2025-01-22 12:57 | Outpatient (AMB) | payer MEDICARE, SELFPAY ==
--- NOTE | 2025-01-22 13:19 | A.OFFVIS_ITS ---
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 He is a patient Dr. Scott. He seen for the following urologic conditions - elevated PSA - erectile dysfunction - lower urinary tract symptoms Follow-up from [facility] Very happy with outcome Increased urine flow Nocturia reduced from 2-3 times per night down to occasional Six-month follow-up PSA and may stop finasteride PSA continues to rise accepted free is within normal range PSA - 03/01 5.7 18%, 09/01 6.9 19% Repeat MRI shows no areas of suspicion Tissue BPH stromal Elevated PSA/Abnormal JAMEL: Had seen blood in urine Recommend cystoscopy Cytology will be sent Prior smoking history. He presents for further evaluation of elevated PSA. Current management is 5AR 2 x prior biopsies since [address] Hector negative. Laboratory investigations include 09/25 PSA 4.6 F 11% 03/27 5.8 - PCPT 15% high risk, 09/26 5.7, 04/27 6.6, 10/29 8.3, 01/27 6.6, 05/31 7.9, 03/01 5.7 18% Imaging investigations include a prostate MRI Yes 03/27 MRI - PiRADS 2, 65 gm, no suspicious areas, 07/31 80 g prostate no suspicious areas Individualized Prostate Cancer Risk Calculator 5-10% high risk, Would like to continue with observation and understands and accepts the risks of a possible delay in diagnosis. A TRUS biopsy has been performed and is negative 2014 Overall symptoms are mild. Associated conditions erectile dysfunction Yes Therapeutic plan will be continued surveillance [facility] Medical History Osteoarthritis of left knee TANIKA on CPAP PMR (polymyalgia rheumatica) Pre-op evaluation Erectile dysfunction Carpal tunnel syndrome HTN (hypertension) GERD (gastroesophageal reflux disease) Lumbar spondylosis Other intervertebral disc degeneration, lumbar region Other chronic pain BPH with obstruction/lower urinary tract symptoms Nocturia History of elevated prostate specific antigen (PSA) Bilateral primary osteoarthritis of knee Surgical History History of carpal tunnel release History of total right knee replacement S/P ORIF (open reduction internal fixation) fracture Hx of colonoscopy Hx of esophagogastroduodenoscopy H/O prior ablation treatment History of prostate biopsy History of arthroscopy of both knees History of ear surgery Family History Father No problems noted. Mother No problems noted. Brother No problems noted. Brother No problems noted. Brother No problems noted. Son No problems noted. 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 Cognitive needs: No Hearing needs: No Vision needs: No Review of Systems Const Denies chills and Denies fever(s) Card Reports no additional complaints and Denies syncope Resp Denies cough GI Denies abdominal pain and Denies heartburn Reports as per HPI and Denies change in libido Neuro Denies syncope Psych Denies change in libido Endo Denies change in libido Physical Exam Const General: cooperative, healthy appearing, comfortable and no acute distress Orientation/consciousness: patient oriented x3 HEENT Face and sinus: Yes normal facial exam Mouth: moist mucous membranes Neck Neck: Yes normal visual inspection, Yes full ROM and Yes trachea midline Chest Chest palpation & inspection: normal inspection of the chest Resp Effort & Inspection: normal respiratory effort, able to speak in complete sentences and no respiratory distress GI Inspection: Yes normal to inspection Back/Spine/Pelvis Cervical Spine: normal cervical lordosis Thoracic/Lumbar Spine: thoracic and lumbar spine normal to inspection Skin General skin exam: no rashes or lesions noted Neuro General: patient oriented x3, gait normal, tone normal and moves all extremities Extrem General: Yes normal to inspection and Yes capillary refill normal Office Procedures Post Void Residual Post Residual Void Post Void Residual (PVR): 46 18524-Qseb Void Residual by ultrasound Results AMB Urinalysis, Automated UA Leukoctes 125 Krzysztof/uL Last Edit by [facility] on 01/22/25 13:27 UA Nitrite Negative Last Edit by Catrina Alberto [facility] on 01/22/25 13:27 UA Urobilinogen 0.2 mg/dL Last Edit by Catrina Alberto [facility] on 01/22/25 13:2 7 UA Protein 15 mg/dL Last Edit by Catrina Alberto [facility] on 01/22/25 13:27 UA pH 6.0 Last Edit by Catrina Alberto [facility] on 01/22/25 13:27 UA Blood 80 Sunday/uL Last Edit by Catrina Alberto [facility] on 01/22/25 13:27 UA Specific [place] 1.010 Last Edit by Catrina Alberto [facility] on 01/22/25 13: 27 UA Ketone Negative Last Edit by Catrina Alberto [facility] on 01/22/25 13:27 UA Bilirubin 0 mg/dL Last Edit by Catrina Alberto [facility] on 01/22/25 13:27 UA Glucose 0 mg/dL Last Edit by Catrina Alberto [facility] on 01/22/25 13:27 Results Reviewed Results Reviewed: Laboratory Last Values Urine pH (Auto) 6.0 01/22/25 13:26 Specific [place] (Auto) 1.010 01/22/25 13:26 Urine Protein (Auto) 15 mg/dL 01/22/25 13:26 Glucose (UA)(Auto) 0 mg/dL 01/22/25 13:26 Urine Ketones (Auto) Negative 01/22/25 13:26 Urine Blood (Auto) 80 Sunday/uL 01/22/25 13:26 Urine Nitrite (Auto) Negative 01/22/25 13:26 Urine Bilirubin (Auto) 0 mg/dL 01/22/25 13:26 Urine Urobilinogen (Auto) 0.2 mg/dL 01/22/25 13:26 Leukocyte Esterase (Auto) 125 Krzysztof/uL 01/22/25 13:26 Assessment & Plan Assessment & Plan (1) BPH w urinary obs/LUTS: Code(s): N40.1 - Benign prostatic hyperplasia with lower urinary tract symptoms; N13.8 - Other obstructive and reflux uropathy Category: Medical (2) Elevated PSA: Code(s): R97.20 - Elevated prostate specific antigen [PSA] Category: Medical Plan Six-month follow-up PSA and PVR Orders: Orders AMB Urinalysis Automated Today Z13.9 - Encounter for screening, unspecified PSA,Total (Free>4and<10) 6 Months R97.20 - Elevated prostate specific antigen [PSA] Patient Instructions: This note is constructed using voice recognition software. While every effort has been made to ensure accuracy geophysical laboratory director errors may have been included. Imaging studies, laboratory and physical exam results were discussed and reviewed in detail. No major barriers to patient understanding were identified. An opportunity to ask questions regarding the treatment plan was provided. All questions were answered. The patient expressed understanding and agreement with the above treatment plan. The patient is aware they should contact our office by phone for worsening of their current condition or the appearance of new urologic symptoms. Compliance is encouraged with any medications and followup testing that is ordered. It is a privilege to participate in the urologic care of your patient. If you have any questions or concerns regarding treatment for the above conditions, or other urologic issues, please do not hesitate to contact me. The office telephone contact is [phone]. Sincerely, Dr Thom Mayorga MD, [facility] - Urology Compassionate Specialist Care for the Genitourinary System Coding Level of Care Code Est Pt Level 3 (83223) Diagnoses BPH w urinary obs/LUTS N40.1; N13.8 Elevated PSA R97.20 CPT Codes Post Residual Void - PVR CPT Code: 36545-Wckl Void Residual by ultrasound ([id number])
== END 2025-01-22 13:36 | disposition home or self-care (01) ==
LOC: HO.HUSH 12:58
PROVIDERS: PCP Nurse Practitioner Family; Visit Provider Urology
DX: N40.1 Benign prostatic hyperplasia with lower urinary tract symptoms (principal); N13.8 Other obstructive and reflux uropathy; R97.20 Elevated prostate specific antigen [PSA]; Z13.9 Encounter for screening, unspecified
CPT/HCPCS: 99024

== ENCOUNTER → 2025-01-22 12:57 | Outpatient (BNVA) | payer MEDICARE, SELFPAY | PROVIDERS: PCP Nurse Practitioner Family; Visit Provider Urology | DX: N40.1 Benign prostatic hyperplasia with lower urinary tract symptoms (principal); N13.8 Other obstructive and reflux uropathy; R97.20 Elevated prostate specific antigen [PSA] | CPT/HCPCS: 51798; 81003 ==

== ENCOUNTER 2025-05-05 11:17 | Outpatient (AMB) | payer MEDICARE, SELFPAY ==
--- NOTE | 2025-05-05 11:27 | A.OFFPC_ITS ---
Vital Signs 05/05/25 11:28 Height 5 ft 8 in Weight 199 lb 6 oz BMI 30.3 BP 140/88 H Blood Pressure Location Rt brachial Position Sitting Respiration 16 Pulse 89 Pulse Source Pulse Oximeter Temp 98.1 F Temp Source Oral Pulse Oximetry (%) 96 Oxygen Delivery Method Room Air Intake Visit Reasons: 6m follow up [employer]essionals Required: Yes Accompanied by: Self / Same As Patient Allergies Penicillins Allergy (Intermediate, Verified 05/05/25 11:29) Swelling lisinopril Adverse Reaction (Intermediate, Verified 05/05/25 11:29) cough Medication List - Last Reconciled 05/05/25 by Jagdeep Aguillon, [facility] irbesartan 300 mg PO DAILY 90 days naproxen sodium 440 mg PO DAILY omeprazole 20 mg PO DAILY 90 days walker Folding front wheeled walker Tobacco use date assessed: 11/05/24 Dental Screening Dental Screen Date: 11/05/24 HPI 6m follow up HPI Details Chief Complaint The patient presents with right calf pain and hypertension management. History of Present Illness The patient is a 69-year-old male presenting with follow-up for hypertension and right calf pain. The right calf pain began about a week ago and is described as tenderness with some erythema, which has since resolved, but slight swelling persists with tenderness. There is slight tenderness to palpation of the mid- calf, and an ultrasound is planned to rule out a deep vein thrombosis (DVT). The patient is also here for hypertension management. He denies any dizziness, chest pain, shortness of breath, blurred vision, or headaches. His , who is a nurse, monitors his blood pressure at home, and he reports that it is usually well-controlled. He is encouraged to bring more home blood pressure readings to the next visit. Social History - Family Status: His is a nurse and assists with monitoring his blood pressure. Health Maintenance - Encouraged to bring home blood pressur e readings for next visit. Review of Systems - Cardiovascular: Denies chest pain, diz ziness, or syncope. - Respiratory: Denies shortness of breat h. - Neurological: Denies blurred vision or headaches. Physical Exam General: Cooperative, healthy appearing, comfortable, no acute distress and well developed Orientation: Patient oriented x3 Limitations: No limitations Head: Normal to inspection Ears: Hearing grossly normal bilaterally Nose: Normal external nose present Face and sinus: Normal facial exam Eyes: Appearance normal, both eyes and all related structures Neck: Normal visual inspection and Yes full ROM Respiratory: Normal respiratory effort and able to speak in complete sentences. Clear to auscultation bilaterally Cardiovascular: Regular rate and rhythm. Normal S1 and S2 GI: Normal to inspection. Soft to palpation and nontender Skin: No rashes or lesions noted Neuro: Patient oriented x3 Extremities: Slight tenderness to palpation of mid right calf with slight swelling noted, no active erythema Results - Ultrasound: Ordered to rule out deep v ein thrombosis (DVT). Plan The patient will undergo an ultrasound to rule out deep vein thrombosis DVT) due to the right calf pain and swelling. For hypertension management, the patient is advised to continue monitoring his blood pressure at home, with his assisting in recording the readings. He is encouraged to bring these readings to the next follow-up visit scheduled for next month. Lab orders have been entered, and the patient is fasting to complete these today. Discussion Notes I discussed with the patient the need for an ultrasound to rule out DVT due to h is right calf symptoms. We also talked about the importance of monitoring his blood pressure at home and bringing those readings to the next visit. I encouraged him to complete his lab work today as he is fasting. Patient Instructions - Get an ultrasound to check for DVT. - Continue monitoring blood pressure at home and bring readings to the next visit. - Complete lab work today as you are judy helms. [facility] Medical History Osteoarthritis of left knee TANIKA on CPAP PMR (polymyalgia rheumatica) Pre-op evaluation Erectile dysfunction Carpal tunnel syndrome HTN (hypertension) GERD (gastroesophageal reflux disease) Lumbar spondylosis Other intervertebral disc degeneration, lumbar region Other chronic pain BPH with obstruction/lower urinary tract symptoms Nocturia History of elevated prostate specific antigen (PSA) Bilateral primary osteoarthritis of knee Surgical History History of carpal tunnel release History of total right knee replacement S/P ORIF (open reduction internal fixation) fracture Hx of colonoscopy Hx of esophagogastroduodenoscopy H/O prior ablation treatment History of prostate biopsy History of arthroscopy of both knees History of ear surgery Family History Father No problems noted. Mother No problems noted. Brother No problems noted. Brother No problems noted. Brother No problems noted. Son No problems noted. 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 Cognitive needs: No Hearing needs: No Vision needs: No Questionnaire Thrive Questionnaire Date Thrive assessed: 05/05/25 I am a: Patient What is your living situation today?: I have a steady place to live Within the past 12 months, did the food you bought not last and you didn't have the money to get more?: Never true Within the past 12 months, did you worry whether your food would run out before you got money to buy more?: I choose not to answer this question Do you have trouble paying for medicines?: No Do you have trouble getting transportation to medical appointments?: No Do you have trouble paying your heating and electricity bill?: I choose not to answer this question Do you have trouble taking care of your child, family member or friend?: I choose not to answer this question Do you have trouble with day-to-day activities such as bathing, preparing meals, shopping, managing finances, etc.?: No Are you currently unemployed and looking for a job?: No Are you interested in more education?: No Please select the resources that you would like help with: None Currently or been in a relationship where the following occur: No concerns reported THRIVE Score: 0 IGNACIA-7 AMB Questionnaire IGNACIA-7 Date IGNACIA - 7 assessed: 05/05/25 Feeling nervous, anxious, or on edge: 0 = Not at all Not being able to stop or control worryin = Not at all Worrying too much about different things: 0 = Not at all Trouble relaxin = Not at all Being so restless that it is hard to sit still: 0 = Not at all Becoming easily annoyed or irritable: 0 = Not at all Feeling afraid as if something awful might happen: 0 = Not at all Total IGNACIA-7 score (0-4 normal; 5-9 mild; 10-14 moderate; 15-21 severe): 0 Source: Developed by Drs. Yomi Lai, Jeannie Beckman, Juan Antonio Barnard and colleagues, with an educational pradeep from [employer]. IGNACIA-7 Assessment Billing IGNACIA-7 Assessment Tool: IGNACIA-7 Assessment 10806 Physical exam (Primary Care) Vital Signs: Last Vital Signs Temp 98.1 F 05/05/25 11:28 Pulse 89 05/05/25 11:28 Resp 16 05/05/25 11:28 BP 140/88 H 05/05/25 11:28 Pulse Ox 96 05/05/25 11:28 Oxygen Delivery Method Room Air 05/05/25 11:28 BMI result Body Mass Index 30.3 Tobacco/Smoking Status: Tobacco use Status Tobacco use date assessed 11/05/24 05/05/25 11:30 Patient Tobacco Use Status Never used Tobacco 05/05/25 11:30 e-Cigarette/Vaping Use Never Used 05/05/25 11:30 Thrive Assessment: Date of Thrive Assessment Date Thrive assessed 05/05/25 05/05/25 11:33 Currently or been in a relationship where the following occur: No concerns reported Immunizations pneumoc 20-sarah conj-dip cr(PF) 0.5 mL IM syringe Performing Provider: JACOB Kelly Performing Location: [facility] [place] [facility] Administered by: Jason Chadwick CMA on 05/05/25 12:18 Dose Route Admin Location Dispensed Lot Number Expiration Date [facility] Graphite Pan Drier Tender 0.5 mL IM Left Deltoid 0.5 mL [id number] 04/27/26 7755-1775-59 [employer] /PFIZER Total Dispensed Waste 0.5 mL 0 % VIS Given Date VIS Provided VIS Publication Date 05/05/25 Single Vaccine 25 Eligibility Eligibility Date Funding Source Not [facility] Eligible 05/05/25 Private Boostrix Tdap 2.5 Lf unit-8 mcg-5 Lf/0.5 mL intramuscular syringe Performing Provider: JACOB Kelly Performing Location: [facility] [place] [facility] Administered by: Jason Chadwick CMA on 05/05/25 12:17 Dose Route Admin Location Dispensed Lot Number Expiration Date NDC Graphite Pan Drier Tender 0.5 mL IM Right Deltoid 0.5 mL [id number] 06/07/27 06039-924-40 [employer] Total Dispensed Waste 0.5 mL 0 % VIS Given Date VIS Provided VIS Publication Date 05/05/25 Single Vaccine 21 Eligibility Eligibility Date Funding Source Not [facility] Eligible 05/05/25 Private Coding Level of Care Code Est Pt Level 4 (82788) Diagnoses Right calf pain M79.661 Screening for colon cancer Z12.11 HTN (hypertension) I10 Additional Codes IGNACIA-7 Assessment Billing - IGNACIA-7 Assessment Tool: IGNACIA-7 Assessment 04525 ([id number]) Assessment & Plan Assessment & Plan (1) Right calf pain: Code(s): M79.661 - Pain in right lower leg Category: Medical (2) Screening for colon cancer: Code(s): Z12.11 - Encounter for screening for malignant neoplasm of colon Category: Medical (3) HTN (hypertension): Code(s): I10 - Essential (primary) hypertension Category: Medical Plan . Orders: Orders US venous duplex LE RT Today M79.661 - Pain in right lower leg Complete Blood Count Auto Diff Today I10 - Essential (primary) hypertension Lipid Panel Today I10 - Essential (primary) hypertension Pneumococcal 20 Immunization Today Z23 - Encounter for immunization TDaP Immunization Today Z23 - Encounter for immunization Comprehensive [place]. Panel Fast Today I10 - Essential (primary) hypertension TSH reflex Free T4 Today I10 - Essential (primary) hypertension UA CC w/rflx Micro + Cult Today I10 - Essential (primary) hypertension Referrals Gastroenterology Referral Z12.11 - Encounter for screening for malignant neoplasm of colon, Z80.0 - Family history of malignant neoplasm of digestive organs Medications: Discontinued tranexamic acid Discontinued Reason: Patient Completed Course 650 mg PO DAILY 10 days 10 tabs 0RF finasteride Discontinued Reason: Patient Completed Course 5 mg PO DAILY 90 days 90 tabs 3RF N13.8 - Other obstructive and reflux uropathy, N40.1 - Benign prostatic hyperplasia with lower urinary tract symptoms
[2025-05-05 11:28] VITALS: BP 140/88; PULSE 89; RESP 16; TEMP 36.7; O2SAT 96; BMI 30.3
--- OUTSIDE RECORDS SUMMARY | 2025-05-05 12:34 | XMS_ITS | Clinical Summary ---
Author Organization [facility] Address [address] [place] [address] [place] [id number] Phone Care Team Providers Care Stone Lathe Operator Name Role Phone Jagdeep Aguillon HORSE IDENTIFIER Primary Care Provider + Social History Tobacco Use Types Packs/Day Years Used Date Smoking Tobacco: Never Assessed Education Answer Date Recorded Are you interested in more education? Not on melida e 04/26/2023 Are you concerned about learning? Not on file 04/26/2023 No 04/26/2023 No 04/26/2023 Digital Access Answer Date Recorded No 04/26/2023 No 04/26/2023 Reliable internet access at home? Not on file 04/26/2023 Device with a working camera? Not on file Sex and Gender Information Value Date Recorded Sex Assigned at Not on file Legal Sex Male 9:55 PM EDT Gender Identity Not on file Sexual Orientation Not on file Plan of Treatment Not on file Medical Devices Not on file Insurance [facility] MEDICARE SUPPLEMENT MEDICARE PART A & B MEDICARE PART A & B Member Subscriber Plan / Payer (Ef fective 2022-) Name:Mingo Ribera Relation to Subscriber:Self Name:Mingo Ribera Payer ID:[id number] (NAIC) Group ID:Not on file [place] [place] [address] [place] [id number] MEDICARE PART A & B MEDICARE SUPPLEMENT MEDICARE PART A & B MEDICARE SUPPLEMENT MEDICARE PART A & B MEDICARE SUPPLEMENT MEDICARE PART A & B Care Teams Stone Lathe Operator Relationship Specialty Start Date End Date Jagdeep Aguillon NP [address] [facility] [place] [address] [email or web address] PCP - General Nurse Practitioner 04/27/23 Additional Source Comments The information contained in this document represents components of the legal health record. It is not the complete legal health record.[facility]
== END 2025-05-05 12:47 | disposition home or self-care (01) ==
LOC: HO.HMCC 11:17
PROVIDERS: PCP Nurse Practitioner Family; Visit Provider Nurse Practitioner Family
DX: M79.661 Pain in right lower leg (principal); Z12.11 Encounter for screening for malignant neoplasm of colon; I10 Essential (primary) hypertension; Z23 Encounter for immunization

== ENCOUNTER 2025-05-05 11:17 | Outpatient (REF) | payer MEDICARE, SELFPAY ==
[2025-05-05 16:12] LABS: Appearance Urine Clear; Glucose Urine UA Negative (Negative); PH 7.0 (5.0-9.0); Specific Gravity - Urine >= 1.030 (1.005-1.025); UMIC TRIGGER UACC YES
[2025-05-05 16:14] LABS: MANUAL DIFF FLAG NO
[2025-05-05 16:19] LABS: Hematocrit 43.5 % (42.0-52.0); Hemoglobin 14.4 g/dl (14.0-18.0); Imm Gran Abs Auto 0.01 X10*3/uL (0.00-0.03); Imm Gran Pct Auto 0.2 % (0.0-0.4); Lymphocytes Absolute Auto 1.0 X10*3/uL (1.2-4.9); Mean Corpuscular HGB Conc 33.1 g/dl (31.0-36.0); Mean Corpuscular Hemoglobin 27.1 pg (27.0-33.0); Mean Corpuscular Volume 81.8 fL (80.0-98.0); NRBC Abs Auto 0.000 X10*3/uL (0.0-0.012); NRBC Pct Auto 0.0 /100WBC (0.0-0.2); Platelet Count 215 X10*3/uL (160-400); Red Blood Count 5.32 X10*6/uL (4.60-5.80); White Blood Count 5.4 X10*3/uL (4.8-10.8)
[2025-05-05 16:44] LABS: Alanine Aminotransferase 17 U/L (0-40); Albumin Level 4.3 g/dL (3.5-5.0); Alkaline Phosphatase 94 U/L (39-117); Anion Gap 12 (12-20); Aspartate Amino Transferase 23 U/L (5-37); Blood Urea Nitrogen 16 mg/dL (9-16); Calcium 8.7 mg/dL (8.4-10.2); Carbon Dioxide 22 mmol/L (22-29); Chloride 109 mmol/L (96-108); Cholesterol 152 mg/dL (<200); Estimated Glomerular Filt Rate > 60; HDL Cholesterol 38 mg/dL (>40); Potassium 4.8 mmol/L (3.3-5.1); Sodium 138 mmol/L (135-145); Total Protein 7.2 g/dL (6.5-8.0); Triglycerides 86 mg/dL (<150)
== END 2025-05-05 11:18 | disposition home or self-care (01) ==
LOC: HO.HMGCLDS 11:17
PROVIDERS: PCP Nurse Practitioner Family; Visit Provider Nurse Practitioner Family
DX: I10 Essential (primary) hypertension (principal)
CPT/HCPCS: 36415; 80053; 80061; 81001; 84443; 85025

== ENCOUNTER 2025-05-05 13:46 | Outpatient (REF) | payer MEDICARE, SELFPAY ==
--- NOTE | ~2025-05-05 | US_ITS ---
EXAMINATION: US TRIPLEX LOWER EXTREMITY, RIGHT CLINICAL INFORMATION: Pain, right lower extremity. COMPARISON: None available. TECHNIQUE: Color-flow triplex imaging with spectral analysis and compression Doppler were performed on the right lower extremity. FINDINGS: Respiratory variation, normal compression and augmented flow demonstrated in the interrogated right common femoral vein, superficial femoral vein, profunda femoral vein, popliteal vein and midcalf peroneal and posterior tibial venous segments. There is a 2.2 cm thick wall anechoic lesion in the popliteal fossa without flow on color Doppler interrogation. US/US venous duplex LE RT IMPRESSION: No acute deep venous thrombosis interrogated veins, right lower extremity. Negative for DVT. 2.2 cm thick wall popliteal cyst.. Electronically signed by: Mj Cadena MD 05/05/2025 02:14 PM EDT
== END 2025-05-05 13:47 | disposition home or self-care (01) ==
LOC: HO.US 13:46
PROVIDERS: PCP Nurse Practitioner Family; Visit Provider Nurse Practitioner Family
DX: M79.661 Pain in right lower leg (principal); Z23 Encounter for immunization; I10 Essential (primary) hypertension; Z80.0 Family history of malignant neoplasm of digestive organs
CPT/HCPCS: 90471; 90472; 90677; 90715; 93971; 96127; 99212

== ENCOUNTER → 2025-05-05 13:50 | Outpatient (BNV) | payer MEDICARE, SELFPAY | PROVIDERS: PCP Nurse Practitioner Family; Visit Provider Radiology Diagnostic Radiology | DX: M79.661 Pain in right lower leg (principal) | CPT/HCPCS: 93971 ==

== ENCOUNTER 2025-05-09 15:47 | Outpatient (REF) | payer MEDICARE, SELFPAY | END 2025-05-09 15:48 | disposition home or self-care (01) | LOC: HO.LAB 15:47 | PROVIDERS: PCP Nurse Practitioner Family; Visit Provider Nurse Practitioner Family | DX: Z13.89 Encounter for screening for other disorder (principal) ==

== ENCOUNTER 2025-05-09 15:50 | Outpatient (REF) | payer MEDICARE, SELFPAY ==
[2025-05-09 17:13] LABS: Appearance Urine Clear; Glucose Urine UA Negative (Negative); PH 7.5 (5.0-9.0); Specific Gravity - Urine <= 1.005 (1.005-1.025); UMIC TRIGGER UACC YES
== END 2025-05-09 15:51 | disposition home or self-care (01) ==
LOC: HO.LAB 15:50
PROVIDERS: PCP Nurse Practitioner Family; Visit Provider Nurse Practitioner Family
DX: I10 Essential (primary) hypertension (principal)
CPT/HCPCS: 81001

== ENCOUNTER 2025-05-12 06:40 | Outpatient (AMB) | payer MEDICARE, SELFPAY ==
--- OUTSIDE RECORDS SUMMARY | 2025-05-12 06:43 | XMS_ITS | Clinical Summary ---
Author Organization [facility] Address [address] [place] [address] [place] [phone] Phone Care Team Providers Care Church History Professor Name Role Phone Jagdeep Aguillon EMERGENCY VETERINARIAN Primary Care Provider + Social History Tobacco [...] file Medical Devices Not on file Insurance [facility] MEDICARE SUPPLEMENT MEDICARE PART A & B MEDICARE PART A & B Member Subscriber Plan / Payer (Ef fective 2022-) Name:Mingo Ribera Relation to Subscriber:Self Name:Mingo Riebra Payer ID:[id number] (NAIC) Group ID:Not on file Type:[facility] Address: [address] [place] [phone] MEDICARE PART A & B MEDICARE SUPPLEMENT MEDICARE PART A & B MEDICARE SUPPLEMENT MEDICARE PART A & B MEDICARE SUPPLEMENT MEDICARE PART A & B Care Teams Church History Professor Relationship Specialty Start Date End Date Jagdeep Aguillon NP [address] [facility] [place] [address] [email or web address] PCP - General Nurse Practitioner 04/27/23 Additional Source Comments The information contained in this document represents components of the legal health record. It is not the complete legal health record.[facility]
--- NOTE | 2025-05-12 07:37 | A.OFFPC_ITS ---
Vital Signs 05/12/25 07:37 Height 5 ft 8 in Intake Visit Reasons: f/up Allergies Penicillins Allergy (Intermediate, Verified 05/12/25 07:45) Swelling lisinopril Adverse Reaction (Intermediate, Verified 05/12/25 07:45) cough Medication List - Last Reconciled 05/12/25 by DEANA Kelly- amlodipine 2.5 mg PO DAILY 30 days irbesartan 300 mg PO DAILY 90 days naproxen sodium 440 mg PO DAILY omeprazole 20 mg PO DAILY 90 days walker Folding front wheeled walker Tobacco use date assessed: 11/05/24 Dental Screening Dental Screen Date: 11/05/24 HPI f/up HPI Details History of Present Illness The patient is a 69-year-old male presenting with hypertension and calf pain. Hypertension has been a chronic condition for the patient, managed with irbesartan 300 mg. Amlodipine 2.5mg is being added to enhance blood pressure control. Calf pain has shown improvement and was initially assessed with an ultrasound, which was negative for deep vein thrombosis. The pain is likely due to a muscle strain or an electrolyte imbalance. Increased fluid and electrolyte intake has been recommended to alleviate the symptoms. Review of Systems - Cardiovascular: Denies chest pain, den ies dizziness, denies blurred vision. - Respiratory: Denies shortness of breat h. Plan For hypertension, the patient will continue with Urvastatin 300 mg, and Amlodipine will be added to the treatment regimen to improve blood pressure control. Regarding the calf pain, which has improved, the ultrasound ruled out deep vein thrombosis, and the pain is likely due to a muscle strain or electrolyte deficiency. The patient is advised to increase fluid and electrolyte intake to address the suspected deficiency. Discussion Notes I discussed with the patient the addition of Amlodipine to his current hypertension regimen to better manage his blood pressure. We also reviewed the results of the ultrasound for his calf pain, which was negative for deep vein thrombosis, and discussed the likelihood of a muscle strain or electrolyte deficiency as the cause. I advised him to increase his fluid and electrolyte intake and scheduled a follow-up for next week to monitor his progress. Patient Instructions - Continue taking irbesartan 300 mg as p rescribed. - Start taking Amlodipine as directed. - Increase fluid and electrolyte intake to help with calf pain. - [facility] Medical History Osteoarthritis of left knee TANIKA on CPAP PMR (polymyalgia rheumatica) Pre-op evaluation Erectile dysfunction Carpal tunnel syndrome HTN (hypertension) GERD (gastroesophageal reflux disease) Lumbar spondylosis Other intervertebral disc degeneration, lumbar region Other chronic pain BPH with obstruction/lower urinary tract symptoms Nocturia History of elevated prostate specific antigen (PSA) Bilateral primary osteoarthritis of knee Surgical History History of carpal tunnel release History of total right knee replacement S/P ORIF (open reduction internal fixation) fracture Hx of colonoscopy Hx of esophagogastroduodenoscopy H/O prior ablation treatment History of prostate biopsy History of arthroscopy of both knees History of ear surgery Family History Father No problems noted. Mother No problems noted. Brother No problems noted. Brother No problems noted. Brother No problems noted. Son No problems noted. 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 Cognitive needs: No Hearing needs: No Vision needs: No Questionnaire Thrive Questionnaire Date Thrive assessed: 10/29/24 I am a: Patient What is your living situation today?: I have a steady place to live Within the past 12 months, did the food you bought not last and you didn't have the money to get more?: Never true Within the past 12 months, did you worry whether your food would run out before you got money to buy more?: I choose not to answer this question Do you have trouble paying for medicines?: No Do you have trouble getting transportation to medical appointments?: No Do you have trouble paying your heating and electricity bill?: I choose not to answer this question Do you have trouble taking care of your child, family member or friend?: I choose not to answer this question Do you have trouble with day-to-day activities such as bathing, preparing meals, shopping, managing finances, etc.?: No Are you currently unemployed and looking for a job?: No Are you interested in more education?: No Please select the resources that you would like help with: None Currently or been in a relationship where the following occur: No concerns reported THRIVE Score: 0 IGNACIA-7 AMB Questionnaire IGNACIA-7 Date IGNACIA - 7 assessed: 05/05/25 Source: Developed by Drs. Yomi Lai, Jeannie Beckman, Juan Antonio Barnard and colleagues, with an educational pradeep from [employer]. Physical exam (Primary Care) Tobacco/Smoking Status: Tobacco use Status Tobacco use date assessed 11/05/24 05/12/25 07:39 Patient Tobacco Use Status Never used Tobacco 05/12/25 07:39 e-Cigarette/Vaping Use Never Used 05/12/25 07:39 Thrive Assessment: Date of Thrive Assessment Date Thrive assessed 10/29/24 05/12/25 07:39 Currently or been in a relationship where the following occur: No concerns reported Telehealth Telehealth Telehealth Platform: [facility] Location of provider rendering services: practice address Location of patient: address on file Patient Identification confirmed using: Name, : Yes Telehealth method: video Patient verbally consented to treatment: Yes Patient verbally consented to billing insurance company: Yes Patient informed of any privacy concerns related to visit: Yes Minutes spent on Phone/Video with Pt.: 12 Coding Level of Care Code Tele Est Pt Level 3 (84207) Diagnoses HTN (hypertension) I10 Calf pain M79.669 Assessment & Plan Assessment & Plan (1) HTN (hypertension): Code(s): I10 - Essential (primary) hypertension Category: Medical (2) Calf pain: Code(s): M79.669 - Pain in unspecified lower leg Category: Medical Plan . Medications: New amlodipine 2.5 mg PO DAILY 30 tabs 3RF 30 days
== END 2025-05-12 08:15 | disposition home or self-care (01) ==
LOC: HO.HMCC 06:40
PROVIDERS: PCP Nurse Practitioner Family; Visit Provider Nurse Practitioner Family
DX: I10 Essential (primary) hypertension (principal); M79.669 Pain in unspecified lower leg

== ENCOUNTER 2025-05-20 08:50 | Outpatient (AMB) | payer MEDICARE, SELFPAY ==
--- NOTE | 2025-05-20 08:54 | AM.OFFVISMDC ---
Intake Vital Signs 05/20/25 08:55 05/20/25 10:03 Height 5 ft 8 in Weight 201 lb BMI 30.6 BP 140/90 H 120/82 Blood Pressure Location Lt brachial Rt brachial Position Sitting Sitting Respiration 16 16 Pulse 80 Pulse Source Pulse Oximeter Pulse Oximetry (%) 94 Oxygen Delivery Method Room Air Intake Visit Reasons: SWV G0438 Accompanied by: Self / Same As Patient Allergies Penicillins Allergy (Intermediate, Verified 05/20/25 09:28) Swelling lisinopril Adverse Reaction (Intermediate, Verified 05/20/25 09:28) cough Medication List - Last Reconciled 05/20/25 by DEANA Kelly-NGUYỄN amlodipine 2.5 mg PO DAILY 30 days irbesartan 300 mg PO DAILY 90 days naproxen sodium 440 mg PO DAILY omeprazole 20 mg PO DAILY 90 days walker Folding front wheeled walker HPI SWV G0438 HPI Details AWV: CCC declined. PPP in scan [facility] Medical History Osteoarthritis of left knee TANIKA on CPAP PMR (polymyalgia rheumatica) Pre-op evaluation Erectile dysfunction Carpal tunnel syndrome HTN (hypertension) GERD (gastroesophageal reflux disease) Lumbar spondylosis Other intervertebral disc degeneration, lumbar region Other chronic pain BPH with obstruction/lower urinary tract symptoms Nocturia History of elevated prostate specific antigen (PSA) Bilateral primary osteoarthritis of knee Surgical History History of carpal tunnel release History of total right knee replacement S/P ORIF (open reduction internal fixation) fracture Hx of colonoscopy Hx of esophagogastroduodenoscopy H/O prior ablation treatment History of prostate biopsy History of arthroscopy of both knees History of ear surgery Family History Father No problems noted. Mother No problems noted. Brother No problems noted. Brother No problems noted. Brother No problems noted. Son No problems noted. 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 Cognitive needs: No Hearing needs: No Vision needs: No Questionnaire Medicare Wellness Checkup What [age] What gender do you identify with?: male During the past 4 weeks, how much have you been bothered by emotional problems such as feeling anxious, depressed, irritable, sad or downhearted, and blue?: not at all During the past 4 weeks, has your physical & emotional health limited your social activities with family, friends, neighbors, or groups?: not at all During the past 4 weeks, how much bodily pain have you generally had?: mild pain During the past 4 weeks, was someone available to help you if you needed & wanted help?: no, not at all During the past 4 weeks, what was the hardest physical activity you could do for at least 2 minutes?: heavy Can you get to places out of walking distance without help? (For eg., can you travel alone on buses, taxis or drive your car?): Yes Can you go shopping for groceries or clothes without someone's help?: Yes Can you prepare your own meals?: Yes Can you do your housework without help?: Yes Because of any health problems, do you need the help of another person with your personal care needs such as eating, bathing, dressing or getting around the house?: No Can you handle your own money without help?: Yes During the past 4 weeks, how would you rate your health in general?: good During the past 4 weeks how have things been going for you?: pretty well Are you having difficulties driving your car?: no Do you always fasten your seat belt when you are in a car?: yes, usually During past 4 weeks, have you been bothered by the following: never: Falling or dizzy when standing up, Sexual problems?, Trouble eating well? and Teeth or denture problems? and seldom: Problems using the telephone? and Tiredness or fatigue? Have you fallen 2 or more times in the past year?: No Are you afraid of falling?: No Are you a smoker?: no During the past 4 weeks, how many drinks of wine, beer, or other alcoholic beverages did you have?: 1 drink or less per week Do you exercise for about 20 minutes 3 or more times a week?: yes, some of the time Have you been given information to help with the following?: no: Hazards in your house that might hurt you? and no: Keeping track of your medications? How often do you have trouble taking medicines the way you have been told to take them?: I always take medicine as prescribed How confident are you that you can control & manage most of your health problems?: very confident What is your race?: White Mini Mental State Exam (MMSE) Orientation What is the (year) (season) (date) (day) (month)?: year, season, date, day and month Where are we (state) (county) (town or city) (hospital) (floor)?: state, county and town or city Registration Name of 3 unrelated objects clearly and slowly, then ask patient to repeat all 3 of them. (1st repeat determines score. Make sure they can repeat all three): object 1, object 2 and object 3 Attention & Calculation (CHOOSE ONE) Spell WORLD backwards (DLROW): 3 letters Recall Ask patient to repeat the 3 items from question #3.: object 1, object 2 and object 3 Language Show patient a wristwatch & ask what it is. Repeat for pencil.: watch and pencil Ask the patient to repeat the phrase 'No ifs, ands, or buts' after you.: correct Ask the patient to 'take a piece of paper with their right hand' 'fold paper in half' 'place paper on floor': take paper in right hand, fold paper in half and place paper on floor Print the sentence 'CLOSE YOUR EYES' on a piece. If patient actually closes eyes then score.: followed written direction Give patient a blank piece of paper & ask to write a sentence. Score if it contains a noun & verb.: sentence contains subject and verb Ask patient to copy figure of intersecting pentagons exactly. Score if all 10 angles & 2 intersects are included.: all 10 angles present & 2 are intersected Score Score: 26 Activity of Daily Living Bathing - sponge bath, tub bath or shower: receives no assistance (gets in/out by self, if usual bathing means Dressing - getting clothes from closets & drawers, including inner/outer garments & fasteners.: gets clothes & gets completely dressed without help Toileting - going to the 'toilet room' for urine/bowel elimination & cleaning self/arranging clothes: goes to toilet room, cleans self, arranges clothes without help Transfer: moves in & out of bed and chair without help (may use support object) Continence: controls urination/bowel movements completely by self Feeding: feeds self without help Total Score: 0 Information obtained from: patient Using telephone: independent Traveling: independent Shopping: independent Preparing meals: independent Housework: independent Taking medicine: independent Managing money: independent PHQ-9 Over the last 2 weeks, how often have you been bothered by any of the following problems? 1. Little interest or pleasure in doing things: not at all 2. Feeling down, depressed, or hopeless: not at all 3. Trouble falling or staying asleep, or sleeping too much: not at all 4. Feeling tired or having little energy: several days 5. Poor appetite or overeating: several days 6. Feeling bad about yourself - or that you are a failure or have let yourself or your family down: not at all 7. Trouble concentrating on things, such as reading the newspaper or watching television: several days 8. Moving or speaking so slowly that other people could have noticed. Or the opposite - being so fidgety or restless that you have been moving around a lot more than usual: several days 9. Thoughts that you would be better off or of hurting yourself in some way: not at all Total score: 4 Depression Screening Interpretation: Negative Depression Screening Done: Yes 68077 - PHQ-9 Billing: Yes Source: Developed by Drs. Yomi Lai, Jeannie Beckman, Juan Antonio Barnard and colleagues, with an educational pradeep from [employer]. Physical Exam Vital Signs: Last Vital Signs Pulse 80 05/20/25 08:55 Resp 16 05/20/25 10:03 BP 120/82 05/20/25 10:03 Pulse Ox 94 05/20/25 08:55 Oxygen Delivery Method Room Air 05/20/25 08:55 BMI result Body Mass Index 30.6 Neuro Other: able to tandem walk, able to stand from sitting position, neg rhomberg, passed whisper test Assessment & Plan Assessment & Plan (1) Medicare annual wellness visit, initial: Code(s): Z00.00 - Encounter for general adult medical examination without abnormal findings Plan . Orders: Orders Hepatitis A,B,C Profile Today Z00.00 - Encounter for general adult medical examination without abnormal findings Quality Reporting (2019) Depression/Bipolar (159/160/161/177) PHQ-9: Total score: 4 Coding Level of Care Code Medicare First (G0438) Diagnoses Medicare annual wellness visit, initial Z00.00 CPT Codes Advance Care Planning - Time spent: 1-15 minutes, on File ([id number]) Additional Codes PHQ-9 - 19652 - PHQ-9 Billing: Yes ([id number]) Advance Care Planning Forms completed: Health Care Proxy (already scanned), MOLST (went over form with pt) and Living will (needs to have performed. ) Time spent: 1-15 minutes, on File Actual minutes spent: 10
[2025-05-20 08:55] VITALS: BP 140/90; PULSE 80; RESP 16; O2SAT 94; BMI 30.6
--- OUTSIDE RECORDS SUMMARY | 2025-05-20 09:10 | XMS_ITS | Clinical Summary ---
Author Organization [facility] Address [address] [place], [place] [id number] Phone Care Team Providers Care Information Manager Name Role Phone Jagdeep Agulilon MEDICAL RECORD CONSULTANT Primary Care Provider + Social History Tobacco [...] file Medical Devices Not on file Insurance [facility] MEDICARE SUPPLEMENT MEDICARE PART A & B MEDICARE PART A & B Member Subscriber Plan / Payer ( fective 2022-) Name:Mingo Ribera Relation to Subscriber:Self Name:Mingo Ribera Payer ID:[id number] (NAIC) Group ID:Not on file [place] [address] [place] [id number] MEDICARE PART A & B MEDICARE SUPPLEMENT MEDICARE PART A & B MEDICARE SUPPLEMENT MEDICARE PART A & B MEDICARE PART A & B Care Teams Information Manager Relationship Specialty Start Date End Date Jagdeep Aguillon NP [address] [place] [address] PCP - General Nurse Practitioner 04/27/23 Additional Source Comments The information contained in this document represents components of the legal health record. It is not the complete legal health record.[facility]
[2025-05-20 10:03] VITALS: BP 120/82; RESP 16
== END 2025-05-20 10:04 | disposition home or self-care (01) ==
LOC: HO.HMCC 08:51
PROVIDERS: PCP Nurse Practitioner Family; Visit Provider Nurse Practitioner Family
DX: Z00.00 Encounter for general adult medical examination without abnormal findings (principal)

== ENCOUNTER → 2025-05-20 08:50 | Outpatient (BNVA) | payer MEDICARE, SELFPAY | PROVIDERS: PCP Nurse Practitioner Family; Visit Provider Nurse Practitioner Family | DX: Z00.00 Encounter for general adult medical examination without abnormal findings (principal); I10 Essential (primary) hypertension; G47.33 Obstructive sleep apnea (adult) (pediatric); Z79.899 Other long term (current) drug therapy | CPT/HCPCS: 96127 ==

== ENCOUNTER 2025-09-10 14:23 | Outpatient (REF) | payer MEDICARE, SELFPAY ==
[2025-09-10 16:09] LABS: PSA,Total (Free>4and<10) 10.94 ng/mL (0.00-4.00)
--- OUTSIDE RECORDS SUMMARY | 2025-09-10 17:14 | XMS_ITS | Clinical Summary ---
Author Organization [facility] Address [address] [place] [phone] Phone Care Team Providers Care Treating Engineer Name Role Phone Jagdeep Aguillon PORTABLE FEED MILL OPERATOR Primary Care Provider + Social History Tobacco [...] file Medical Devices Not on file Insurance [address] [place] [address] MEDICARE SUPPLEMENT MEDICARE PART A & B MEDICARE PART A & [place] [address] [address] MEDICARE SUPPLEMENT MEDICARE PART A & B MEDICARE SUPPLEMENT MEDICARE PART A & B MEDICARE PART A & B MEDICARE SUPPLEMENT MEDICARE PART A & B Care Teams Treating Engineer Relationship Specialty Start Date End Date Jagdeep Aguillon NP [address] [place] [address] PCP - General Nurse Practitioner 04/27/23 Additional Source Comments The information contained in this document represents components of the legal health record. It is not the complete legal health record.[facility]
== END 2025-09-10 14:24 | disposition home or self-care (01) ==
LOC: HO.LAB 14:23
PROVIDERS: PCP Nurse Practitioner Family; Visit Provider Urology
DX: R97.20 Elevated prostate specific antigen [PSA] (principal); Z12.5 Encounter for screening for malignant neoplasm of prostate
CPT/HCPCS: 36415; 84153

== ENCOUNTER 2025-09-24 13:00 | Outpatient (AMB) | payer MEDICARE, SELFPAY ==
--- NOTE | 2025-09-24 13:04 | MHC.OFFVIS ---
Intake Visit Reasons: 6M PSA/PVR/UA(set) Intake Note: Reason for Visit: PSA/PVR/UA Follow Up Urology Meds: None Blood Thinners: None Labs: PSA- 10.94 (09/10/2025) Imaging: None Last PVR:46ml PVR: 60ml Rock Crusher Operator Required: No Accompanied by: Self / Same As Patient Allergies Penicillins Allergy (Intermediate, Verified 09/24/25 13:06) Swelling lisinopril Adverse Reaction (Intermediate, Verified 09/24/25 13:06) cough HPI Comments Details: Mingo is a pleasant male. He is a patient Dr. Scott. He seen for the following urologic conditions - elevated PSA - erectile dysfunction - lower urinary tract symptoms PSA elevation after stopping finasteride PSA - 03/01 5.7 18%, 09/01 6.9 19%, 10/02 11 Restart dutasteride Six-month follow-up check PSA and PVR Repeat MRI from July 2023 shows no areas of suspicion GreenLight laser 12/31 Tissue BPH stromal Elevated PSA/Abnormal JAMEL: Had seen blood in urine Recommend cystoscopy Cytology will be sent Prior smoking history. He presents for further evaluation of elevated PSA. Current management is 5AR 2 x prior biopsies since [address] Hector negative. Laboratory investigations include 09/25 PSA 4.6 F 11% 03/27 5.8 - PCPT 15% high risk, 09/26 5.7, 04/27 6.6, 10/29 8.3, 01/27 6.6, 05/31 7.9, 03/01 5.7 18% Imaging investigations include a prostate MRI Yes 03/27 MRI - PiRADS 2, 65 gm, no suspicious areas, 07/31 80 g prostate no suspicious areas Individualized Prostate Cancer Risk Calculator 5-10% high risk, Would like to continue with observation and understands and accepts the risks of a possible delay in diagnosis. A TRUS biopsy has been performed and is negative 2014 Overall symptoms are mild. Associated conditions erectile dysfunction Yes Therapeutic plan will be continued surveillance [facility] Medical History Osteoarthritis of left knee TANIKA on CPAP PMR (polymyalgia rheumatica) Pre-op evaluation Erectile dysfunction Carpal tunnel syndrome HTN (hypertension) GERD (gastroesophageal reflux disease) Lumbar spondylosis Other intervertebral disc degeneration, lumbar region Other chronic pain BPH with obstruction/lower urinary tract symptoms Nocturia History of elevated prostate specific antigen (PSA) Bilateral primary osteoarthritis of knee Surgical History History of carpal tunnel release History of total right knee replacement S/P ORIF (open reduction internal fixation) fracture Hx of colonoscopy Hx of esophagogastroduodenoscopy H/O prior ablation treatment History of prostate biopsy History of arthroscopy of both knees History of ear surgery Family History Father No problems noted. Mother No problems noted. Brother No problems noted. Brother No problems noted. Brother No problems noted. Son No problems noted. 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 Cognitive needs: No Hearing needs: No Vision needs: No Review of Systems Const Denies chills and Denies fever(s) Card Reports no additional complaints and Denies syncope Resp Denies cough GI Denies abdominal pain and Denies heartburn Reports as per HPI and Denies change in libido Neuro Denies syncope Psych Denies change in libido Endo Denies change in libido Physical Exam Const General: cooperative, healthy appearing, comfortable and no acute distress Orientation/consciousness: patient oriented x3 HEENT Face and sinus: Yes normal facial exam Mouth: moist mucous membranes Neck Neck: Yes normal visual inspection, Yes full ROM and Yes trachea midline Chest Chest palpation & inspection: normal inspection of the chest Resp Effort & Inspection: normal respiratory effort, able to speak in complete sentences and no respiratory distress GI Inspection: Yes normal to inspection Back/Spine/Pelvis Cervical Spine: normal cervical lordosis Thoracic/Lumbar Spine: thoracic and lumbar spine normal to inspection Skin General skin exam: no rashes or lesions noted Neuro General: patient oriented x3, gait normal, tone normal and moves all extremities Extrem General: Yes normal to inspection and Yes capillary refill normal Office Procedures Post Void Residual Post Residual Void Post Void Residual (PVR): 60 [id number]-[id number] Void Residual by ultrasound Results AMB Urinalysis, Automated UA Leukoctes 0 Krzysztof/uL Last Edit by Regi Berad, A on 09/24/25 13:15 UA Nitrite Negative Last Edit by Regi Beard, RMA on 09/24/25 13:15 UA Urobilinogen 0.2 mg/dL Last Edit by Regi Beard, RMA on 09/24/25 13:15 UA Protein 0 mg/dL Last Edit by Regi Beard, RMA on 09/24/25 13:15 UA pH 6.0 Last Edit by Regi Beard, RMA on 09/24/25 13:15 UA Blood 0 Sunday/uL Last Edit by Regi Beard, RMA on 09/24/25 13:15 UA Specific [place] 1.015 Last Edit by Regi Beard, A on 09/24/25 13:15 UA Ketone Negative Last Edit by Regi Beard, RMA on 09/24/25 13:15 UA Bilirubin 0 mg/dL Last Edit by Regi Beard, RMA on 09/24/25 13:15 UA Glucose 0 mg/dL Last Edit by Regi Beard, A on 09/24/25 13:15 Assessment & Plan Assessment & Plan (1) Elevated PSA: Code(s): R97.20 - Elevated prostate specific antigen [PSA] Category: Medical Plan Six-month follow-up PSA office Orders: Orders AMB Post Void Residual by ultrasound Today N13.8 - Other obstructive and reflux uropathy, N40.1 - Benign prostatic hyperplasia with lower urinary tract symptoms AMB Urinalysis Automated Today Z13.9 - Encounter for screening, unspecified PSA,Total (Free>4and<10) 6 Months R97.20 - Elevated prostate specific antigen [PSA] Medications: New dutasteride 0.5 mg PO DAILY 90 caps 1RF 90 days R97.20 - Elevated prostate specific antigen [PSA] Patient Instructions: This note is constructed using voice recognition software. While every effort has been made to ensure accuracy sales product manager errors may have been included. Imaging studies, laboratory and physical exam results were discussed and reviewed in detail. No major barriers to patient understanding were identified. An opportunity to ask questions regarding the treatment plan was provided. All questions were answered. The patient expressed understanding and agreement with the above treatment plan. The patient is aware they should contact our office by phone for worsening of their current condition or the appearance of new urologic symptoms. Compliance is encouraged with any medications and followup testing that is ordered. It is a privilege to participate in the urologic care of your patient. If you have any questions or concerns regarding treatment for the above conditions, or other urologic issues, please do not hesitate to contact me. The office telephone contact is [phone]. Sincerely, Dr Thom Mayorga MD, [facility] - Urology Compassionate Specialist Care for the Genitourinary System Coding Level of Care Code Est Pt Level 4 (53113) Diagnoses Elevated PSA R97.20 CPT Codes Post Residual Void - PVR CPT Code: 15169-Htyl Void Residual by ultrasound ([id number])
--- OUTSIDE RECORDS SUMMARY | 2025-09-24 17:07 | XMS_ITS | Clinical Summary ---
Author Organization [facility] Address [address] [place] [id number] Phone Care Team Providers Care Mapping Supervisor Name Role Phone Jagdeep Aguillon PICKER/PULLER Primary Care Provider + Social History Tobacco [...] file Medical Devices Not on file Insurance [facility] MEDICARE SUPPLEMENT MEDICARE PART A & B MEDICARE PART A & B [address] [place] [address] MEDICARE SUPPLEMENT MEDICARE PART A & B MEDICARE SUPPLEMENT MEDICARE PART A & B MEDICARE PART A & B MEDICARE SUPPLEMENT MEDICARE PART A & B Care Teams Mapping Supervisor Relationship Specialty Start Date End Date Jagdeep Aguillon NP [address] [facility] [place] [id number] PCP - General Nurse Practitioner 04/27/23 Additional Source Comments The information contained in this document represents components of the legal health record. It is not the complete legal health record.[facility]
== END 2025-09-24 13:25 | disposition home or self-care (01) ==
LOC: HO.HUSH 13:01
PROVIDERS: PCP Nurse Practitioner Family; Visit Provider Urology
DX: Z13.9 Encounter for screening, unspecified (principal); R97.20 Elevated prostate specific antigen [PSA]
CPT/HCPCS: 99214

== ENCOUNTER → 2025-09-24 13:00 | Outpatient (BNVA) | payer MEDICARE, SELFPAY | PROVIDERS: PCP Nurse Practitioner Family; Visit Provider Urology | DX: N40.1 Benign prostatic hyperplasia with lower urinary tract symptoms (principal); N13.8 Other obstructive and reflux uropathy; R97.20 Elevated prostate specific antigen [PSA]; Z13.9 Encounter for screening, unspecified; Z98.890 Other specified postprocedural states | CPT/HCPCS: 51798; 81003; 99212 ==